=== PATIENT | female | born 1955 | race Caucasian/White ===

== ENCOUNTER 2018-02-17 15:56 | Emergency (ER) | payer MEDICARE, SELFPAY ==
[2018-02-17 16:07] VITALS: BP 168/104; PULSE 84; RESP 16; TEMP 36.6; O2SAT 96
--- NOTE | 2018-02-17 16:36 | ED.GENADUL ---
Disposition Clinical Impression: Pain in thumb joint with movement of left hand Disposition: HOME Condition: Stable Instructions: Arthralgia (ED) Additional Instructions: Feel free to return to the emergency department if you have any new or significant worsening of symptoms including multiple joint involvement, fever chills, redness or swelling to the joint. Otherwise rest the hand for the next 3-4 days and then resume activity as tolerated. Referrals: Ilda Mock [Primary Care Provider] - 2 weeks (If not improving over the next 2 weeks please follow-up with your primary care provider for reassessment) Medical Decision Making - Medical Decision Making Patient presenting to the emergency department with 3 days of thumb pain with no apparent injury or trauma. Finger is not red swollen, and there is no dysfunction to the joint. There is some tenderness with movement of the MCP joint but is otherwise unremarkable. With physical examination mostly unremarkable beyond pain to MCP joint I feel that this is more likely arthritis related but given sudden onset this not fully correlate with arthritis but there are no emergent findings of infection, systemic illness, or other joint involvement at this time I do not feel that labs or radiological imaging is warranted. Patient denies any repetitive motion or overuse so doubt tendinopathy. With no emergent findings patient was encouraged to use [id number] Tylenol or Motrin as needed for pain control to follow-up with primary care in 2 weeks for reassessment. After discussion of diagnosis and plan of care with patient patient agreed and stated no further needs, questions, or concerns at this time. History of Present Illness - General Chief complaint: Orthopedic Stated complaint: UNKNOWN Time Seen by Provider: 02/17/18 16:19 Source: patient, RN notes reviewed Mode of arrival: ambulatory Limitations: no limitations - History of Present Illness Initial comments: Patient reports 3 days ago she having left thumb pain. She denies any injury or trauma, repetitive use, motion, other joint involvement, fever chills. She does state history of gout but this is not red hot or swollen denies any streaking redness up the arm. Patient states that she has not attempted to use any [id number] pain medication. Onset/Timin -: days(s) Location: left, upper extremity Severity scale (1-10): 4 Quality: aching Consistency: constant Improves with: none Worsens with: movement Associated Symptoms: denies other symptoms Treatments Prior to Arrival: none - Related Data Allopurinol 300 mg PO DAILY #90 tab 02/06/14 Docusate Sodium [Colace] 100 mg PO BID PRN PRN cap 07/13/17 Lisinopril [Prinivil] 10 mg PO DAILY #30 tab 07/13/17 Naproxen [Naprosyn] 500 mg PO BID #28 tab 07/13/17 Erythromycin Ophth Oint [Ilotycin Ophth Oint] 3.5 gm OP TID 5 Days tube 11/30/17 Allergies Allergy/AdvReac Type Severity Reaction Status Date / Time quetiapine fumarate Allergy Intermediate Unverified 02/17/18 16:11 [From Seroquel] nabumetone [Nabumetone] Allergy Unknown SKIN RASH Unverified 02/17/18 16:11 celecoxib [From Celebrex] AdvReac Unknown PANIC Unverified 02/17/18 16:11 ATTACKS trazodone AdvReac Unknown PANIC Unverified 02/17/18 16:11 ATTACKS, RUBBERY LEGS, HALLUCINATIONS Review of Systems Constitutional: denies: chills, fever, malaise Respiratory: no symptoms reported Cardiovascular: denies: chest pain Musculoskeletal: as per HPI, arthralgia. denies: joint swelling Skin: denies: rash, change in color Neurological: denies: numbness, paresthesias Past Medical History - Past Medical History Medical history: arthritis, GERD, hypertension Gout, kidney stones Surgical history: cholecystectomy, hysterectomy - Social History Smoking status: never smoker Alcohol use: none Drug use: none Living Situation: lives with family General Exam - General Limitations: no limitations General appearance: alert, in no apparent distress - Respiratory Respiratory exam: Absent: respiratory distress - Cardiovascular Cardiovascular Exam: Present: regular rate, normal rhythm - Expanded Upper Extremity Exam Left Elbow exam: Present: normal inspection Forearm Wrist exam: Present: normal inspection Hand Wrist exam: Present: full ROM, tenderness (To palpation of MCP of thumb). Absent: swelling, deformity, crepidus, dislocation, erythema, nail avulsion, other (Negative Elodia's) Neuro motor exam: Present: wrist extension intact, thumb opposition intact, thumb IP flexion intact, thumb adduction intact, fingers 2-5 abduction intact Neurosensory exam: Present: 2-point discrimination, radial nerve intact, ulnar nerve intact, median nerve intact Vascular: Present: normal capillary refill, radial pulse (2+) - Neurological Exam Neurological exam: Present: alert, oriented X3. Absent: altered, CN II-XII intact - Skin Skin exam: Present: warm, dry, intact, normal color. Absent: erythema Course Vital Signs - 24 hr 02/17/ 16:07 Temperature 36.6 C Pulse 84 Respiratory 16 Rate Blood Pressure 168/104 Pulse Oximetry 96
[2018-02-17] MEDS: Acetaminophen 500 MG TAB 1000 MG PO (16:37)
== END 2018-02-17 16:43 | disposition home or self-care (01) ==
PROVIDERS: Emergency Provider Emergency Medicine; PCP Family Medicine
DX: M25.542 Pain in joints of left hand (principal); I10 Essential (primary) hypertension
CPT/HCPCS: 99282 ×2

== ENCOUNTER 2018-05-13 12:59 | Emergency (ER) | payer MEDICARE, SELFPAY ==
[2018-05-13 13:01] VITALS: BP 181/93; PULSE 92; RESP 18; TEMP 37.1; O2SAT 95
[2018-05-13] MEDS: Lisinopril 10 MG TAB PO (13:29)
[2018-05-13] MEDS: Ketorolac 30 MG/ML VIAL IM (13:29)
[2018-05-13 13:32] VITALS: RESP 14
[2018-05-13 13:59] VITALS: BP 155/92; PULSE 85; RESP 16; TEMP 37.4; O2SAT 97
--- NOTE | 2018-05-13 14:01 | NUR.NOTE ---
patient put on home day care provider's list for f/u secondary to patient bringing in outdated meds, told this nurse that she takes her meds when she remembers too and that she has an upcoming appt with her PCP.
--- NOTE | 2018-05-13 15:22 | ED.GENADUL_ITS ---
Discharge Plan Disposition Patient Disposition: HOME Condition: Good Discharge Details Chief Complaint: GenMedical Clinical Impression: Gout, Hypertension Primary Care Provider: Ilda Mock ED Provider: Troy Flores Home Meds and New Rx's Prescriptions: New allopurinol 300 mg tablet 300 mg PO DAILY Qty: 30 RF: 0 lisinopril 10 mg tablet 10 mg PO DAILY Qty: 30 RF: 0 Discharge Instructions Instructions: Low Purine Diet (ED), Gout (ED), Hypertension (ED) Additional Instructions: Please take your medication as directed. Please take Tylenol and Motrin as needed for pain for your gout. Please use your home crutches. Please avoid meats, caviar, or preserve meats if you notice any worsening of your symptoms, or any new symptoms such as vomiting, diarrhea, fever, chills, shortness of breath, chest pain, numbness, weakness, or fainting , please return immediately to the emergency department for reevaluation. Please follow up with your primary care provider as soon as possible for reassessment and reevaluation. As always, it was a pleasure participating in your medical care today. Referrals: Ilda Mock [Primary Care Provider] - Discharge Data Discharge Date/Time-TO BE ENTERED AT DEPARTURE: 05/13/18 13:55 Medical Decision Making This is a 62-year-old female with a past medical history of gout who presents for complaint of right foot pain with signs and symptoms consistent with gout. She has not been taking her allopurinol for quite some time, nor any of her other medications including her lisinopril for her hypertension medications. The pain started without trauma. She denies any fever or chills. Signs and symptoms on exam do appear consistent with gout, with no signs of infection or trauma. I feel her symptoms are secondary to medical noncompliance. The patient's blood pressure was initially elevated by EMS, but on reevaluation here notably went down. I do feel that she would benefit from restarting her home lisinopril as well as her allopurinol. We will give Toradol here for control of her gout, as well as recommendations for restarting her home meds. We will refill her home medication prescriptions here, and recommend Tylenol Motrin for home use. We did get the patient up and she was able to ambulate with mild pain. We did offer getting a cane/walker/crutches, however she has refused these, and states that she just wants a wheelchair to her car, so that she can get in and then will use her home crutches and cane she already has. She does not want to spend any additional money. Patient will be discharged home with close follow-up. We discussed the importance of close follow-up as well as red flags which to return the patient understands. I have extensively reviewed the treatment plan and discharge instructions with the patient. I have addressed all patient concerns at this time. The patient was made aware of what symptoms to monitor for that would warrant a return to the emergency department. Discussed the plan with the patient, they demonstrate verbal understanding and agreement with our assessment and plan at this time. HPI General Date/Time Provider Initiated Documentation: 05/13/18 13:07 . HPI Narrative: This is a 62-year-old female with a past medical history of gout, hypertension, chronic medical noncompliance who presents today for evaluation of right foot pain. The patient states that she has not been taking any of her medications for quite some time, she presents for evaluation of right foot pain that started without any inciting event. She states that this morning she woke up and had mild pain on the dorsum of her right foot. She states that it feels like her previous episodes of gout. She does admit to eating tuna fish recently, which she does not normally eat on a regular basis. She denies any trauma, or systemic symptoms of fever, chills, or other pain in her leg or ankle. She did contact EMS because of the pain with walking, and did not want to walk to her car at that time. On EMS arrival they did notice that she did have an elevated blood pressure in the high 100s systolic. Patient has no complaints of chest pain shortness of breath vision changes numbness tingling or weakness. Patient denies any other complaints at this time. She denies any recent surgeries, IV or illicit drug use, pertinent family history. Related Data Home Medications Medication Instructions Recorded Confirmed allopurinol 300 mg PO DAILY #30 tab 05/13/18 lisinopril 10 mg PO DAILY #30 tab 05/13/18 Previous Rx's Medication Instructions Recorded allopurinol 300 mg PO DAILY #30 tab 05/13/18 lisinopril 10 mg PO DAILY #30 tab 05/13/18 Allergies Allergy/AdvReac Type Severity Reaction Status Date / Time quetiapine fumarate Allergy Intermediate Unverified 05/13/18 13:01 [From Seroquel] nabumetone [Nabumetone] Allergy Unknown SKIN RASH Unverified 05/13/18 13:01 celecoxib [From Celebrex] AdvReac Unknown PANIC Unverified 05/13/18 13:01 ATTACKS trazodone AdvReac Unknown PANIC Unverified 05/13/18 13:01 ATTACKS, RUBBERY LEGS, HALLUCINATIONS General Stated Complaint: GenMedical LOBITO: 4 Review of Systems Review of Systems All systems reviewed & are unremarkable except as noted in HPI and below PFSH Medical History Essential hypertension Gout Morbid obesity Social History Smoking/Tobacco Use Status: Never Surgical History Cholecystectomy (10/22/13) Colonoscopy - MAC (02/28/14) Left extracorporeal shockwave lithotripsy for left renal calculus, 11/15/12 cystourethroscopy (01/24/13) Exam Narrative Exam Narrative: 1.Const: Well-nourished, Well-developed, appearing stated age. Morbidly obese, unkempt 2.Eyes: PERRL, no conjunctival injection, and symmetrical lids. 3.ENT: Atraumatic external nose and ears. Moist MM. Neck: Symmetric, trachea midline, No thyromegaly. 4.CVS: +S1/S2, No murmurs or gallops. Peripheral pulses 2+ and equal in all extremities. Brisk capillary refill in all extremities. 5.RESP: Unlabored respiratory effort. Clear to auscultation bilaterally. No wheezes rales or rhonchi 6.GI: Soft, Nontender/Nondistended, No hepatosplenomegaly. No guarding or rebound. 7.MSK: Normocephalic/Atraumatic, Extremities w/o deformity. No cyanosis or clubbing, Normal movement of all extremities. Patient demonstrates minimal swelling over the dorsum of her foot, no evidence of erythema, no warmth. Mild tenderness on palpation of this area. No crepitus, no signs of deformity, or infection. No other abnormalities or signs of tenderness. 8.Skin: Warm, Dry. No rashes or lesions. 9.Neuro: central scheduler II-XII grossly intact. Sensation grossly intact, no focal neurologic deficits. 10.Psych: (AAO) x3. Appropriate mood and affect Course Vital Signs Temperature 37.1 C 05/13/18 13:01 Pulse 92 H 05/13/18 13:01 Respiratory Rate 18 05/13/18 13:01 Blood Pressure 181/93 H 05/13/18 13:01 Pulse Oximetry 95 05/13/18 13:01 Temperature 37.1 C 05/13/18 13:01 Temperature Source Temporal Artery Scan 05/13/18 13:01 Pulse 92 H 05/13/18 13:01 Respiratory Rate 14 05/13/18 13:32 Respiratory Effort Non-Labored 05/13/18 13:32 Respiratory Depth Normal 05/13/18 13:32 Respiratory Pattern Normal 05/13/18 13:32 Blood Pressure 181/93 H 05/13/18 13:01 Blood Pressure Position Sitting 05/13/18 13:01 Pulse Oximetry 95 05/13/18 13:01 Oxygen Delivery Method Room Air 05/13/18 13:01 Oxygen Flow Rate 0 05/13/18 13:01 Pain Level 10 05/13/18 13:29
== END 2018-05-13 13:55 | disposition home or self-care (01) ==
PROVIDERS: Emergency Provider Student in an Organized Health Care Education/Training Program; PCP Family Medicine
DX: M10.071 Idiopathic gout, right ankle and foot (principal); I10 Essential (primary) hypertension
CPT/HCPCS: 96372; 99284; J1885

== ENCOUNTER 2018-05-28 10:42 | Outpatient (REF) | payer MEDICARE, SELFPAY ==
--- NOTE | 2018-05-28 10:00 | PAPFT_PTH ---
PATIENT: Luba Cotton LOC: [facility] U#:[id number] AGE/SX: 62/F ROOM: RE05/28/[address]: Ilda Mock : 1955 BED: DIS: 05/28/2018 SPEC #: [id number] RECD: 05/28/18 12:44 STATUS: SUDARSHAN REQ #: [id number] EVY: 05/28/18 10:[address]: Ilda Mock DEPT: [facility] Cytology RECD BY: Mariana Giraldo Tissues: 1 - CX/ENDOCX FOR PAP SMEARS Procedures: PAP THIN PREP/UVM Screening Comments: [id number]
== END 2018-05-28 11:02 ==
LOC: NCHCN 10:42
PROVIDERS: PCP Family Medicine; Visit Provider Family Medicine
DX: Z12.4 Encounter for screening for malignant neoplasm of cervix (principal)
CPT/HCPCS: 88142

== ENCOUNTER 2018-06-02 08:32 | Emergency (ER) | payer MEDICARE, MEDICAID, SELFPAY ==
[2018-06-02 08:37] VITALS: BP 149/89; PULSE 100; RESP 16; TEMP 36.5; O2SAT 95
[2018-06-02] MEDS: Acetaminophen 500 MG TAB 1000 MG PO (08:45)
[2018-06-02] MEDS: Ketorolac 30 MG/ML VIAL IM (08:45)
--- NOTE | 2018-06-02 08:53 | ED.GENADUL_ITS ---
Discharge Plan Disposition Patient Disposition: HOME Condition: Good Discharge Details Chief Complaint: Orthopedic Clinical Impression: Gout Reason For Visit: KERI Primary Care Provider: Ilda Mock ED Provider: Troy Flores Home Meds and New Rx's Prescriptions: New acetaminophen [Mapap Extra Strength] 500 MG tablet 1,000 mg PO Q6H 5 Days Qty: 60 RF: 0 ibuprofen [Motrin IB] 200 MG tablet 600 mg PO Q6H 5 Days Qty: 60 RF: 0 No Action allopurinol 300 mg tablet 300 mg PO DAILY Qty: 30 RF: 0 lisinopril 10 mg tablet 10 mg PO DAILY Qty: 30 RF: 0 Discharge Instructions Instructions: Gout (ED) Additional Instructions: Please take your medication as directed. Please take Tylenol and Motrin as needed for pain for your gout. Please use your home crutches. Please avoid meats, caviar, or preserve meats if you notice any worsening of your symptoms, or any new symptoms such as vomiting, diarrhea, fever, chills, shortness of breath, chest pain, numbness, weakness, or fainting , please return immediately to the emergency department for reevaluation. Please follow up with your primary care provider as soon as possible for reassessment and reevaluation. As always, it was a pleasure participating in your medical care today. Referrals: Ilda Mock [Primary Care Provider] - Medical Decision Making This is a 62-year-old female with a past medical history of gout who presents for complaint of left foot pain with signs and symptoms consistent with gout. She has not been taking her allopurinol as dirtected, nor any of her other medications . The pain started without trauma. She denies any fever or chills. Signs and symptoms on exam do appear consistent with gout, with no signs of infection or trauma. I feel her symptoms are secondary to medical noncompliance. I did see, assess and treat the patient less than a month ago for similar complaint however on the right foot. At that time we started her on NSAIDs, and restarted her allopurinol. She did very well at that time and had complete resolution of her symptoms. I feel that her current clinical scenario mirrors this previous instance very well. We will recommend resuming her allopurinol, we will give her Toradol and Tylenol here, and recommend continued NSAID use at home for symptom resolution. We recommend avoidance of preserved meats, and other etiologies that can worsen gout. Patient does have crutches at home, and is not requesting any at this time. We discussed red flags which to return the patient understands. I have extensively reviewed the treatment plan and discharge instructions with the patient. I have addressed all patient concerns at this time. The patient was made aware of what symptoms to monitor for that would warrant a return to the emergency department. Discussed the plan with the patient, they demonstrate verbal understanding and agreement with our assessment and plan at this time. HPI General Date/Time Provider Initiated Documentation: 06/02/18 08:39 . HPI Narrative: This is a 62-year-old female with a past medical history of gout, hypertension, chronic medical noncompliance who presents today for evaluation of Left foot pain. The patient states that she has not been taking any of her medications for gout as directed. She has been missing multiple doses of her allopurinol, and she has not been taking any NSAIDs. The pain started 3 days ago without inciting event. It is located mainly at the MTP joint on the left foot of the great toe. There is no other significant radiation of the pain it is mainly located in that single location. It is worse with movement and palpation. She has no associated fevers, chills, calf pain, chest pain, shortness of breath, numbness tingling or weakness. She has been eating meats with the . She denies any other aggravating or relieving symptoms. Patient denies any other associated complaints at this time. Patient denies any recent surgeries. She denies any IV or illicit drug use or pertinent family history. Related Data Home Medications Medication Instructions Recorded Confirmed allopurinol 300 mg PO DAILY #30 tab 05/13/18 06/02/18 lisinopril 10 mg PO DAILY #30 tab 05/13/18 06/02/18 acetaminophen [Mapap Extra 1,000 mg PO Q6H 5 Days #60 tab 06/02/18 Strength] ibuprofen [Motrin Ib] 600 mg PO Q6H 5 Days #60 tab 06/02/18 Previous Rx's Medication Instructions Recorded allopurinol 300 mg PO DAILY #30 tab 05/13/18 lisinopril 10 mg PO DAILY #30 tab 05/13/18 acetaminophen [Mapap Extra 1,000 mg PO Q6H 5 Days #60 tab 06/02/18 Strength] ibuprofen [Motrin Ib] 600 mg PO Q6H 5 Days #60 tab 06/02/18 Allergies Allergy/AdvReac Type Severity Reaction Status Date / Time quetiapine fumarate Allergy Intermediate Unverified 06/02/18 08:40 [From Seroquel] nabumetone [Nabumetone] Allergy Unknown SKIN RASH Unverified 06/02/18 08:40 celecoxib [From Celebrex] AdvReac Unknown PANIC Unverified 06/02/18 08:40 ATTACKS trazodone AdvReac Unknown PANIC Unverified 06/02/18 08:40 ATTACKS, RUBBERY LEGS, HALLUCINATIONS General Stated Complaint: Orthopedic LOBITO: 4 Review of Systems Review of Systems All systems reviewed & are unremarkable except as noted in HPI and below PFSH Essential hypertension Gout Morbid obesity Cholecystectomy (10/22/13) Colonoscopy - MAC (02/28/14) Left extracorporeal shockwave lithotripsy for left renal calculus, 11/15/12 cystourethroscopy (01/24/13) Medical History Essential hypertension Gout Morbid obesity Social History Smoking/Tobacco Use Status: Never Surgical History Cholecystectomy (10/22/13) Colonoscopy - MAC (02/28/14) Left extracorporeal shockwave lithotripsy for left renal calculus, 11/15/12 cystourethroscopy (01/24/13) Social History Smoking/Tobacco Use Status: Never Exam Narrative Exam Narrative: 1.Const: Well-nourished, Well-developed, appearing stated age 2.Eyes: PERRL, no conjunctival injection, and symmetrical lids. 3.ENT: Atraumatic external nose and ears. Moist MM. Neck: Symmetric, trachea midline, No thyromegaly. 4.CVS: +S1/S2, No murmurs or gallops. Peripheral pulses 2+ and equal in all extremities. Brisk capillary refill in all extremities. 5.RESP: Unlabored respiratory effort. Clear to auscultation bilaterally. No wheezes rales or rhonchi 6.GI: Soft, Nontender/Nondistended, No hepatosplenomegaly. No guarding or rebound. 7.MSK: Normocephalic, Extremities w/o deformity, No cyanosis or clubbing, Normal movement of all extremities. Patient does demonstrate mild subjective tenderness at the MTP joint on the great toe on the left foot. Minimal warmth, no evidence of fluctuance. No evidence of significant radiation. No crepitus. No evidence of tophaceous gout. Capillary refill is brisk, dorsalis pedis and posterior tibial pulses +2 bilaterally. Sensation is intact. Signs and symptoms consistent with clinical gout. 8.Skin: Warm, Dry. No rashes or lesions. Please see musculoskeletal. 9.Neuro: patient transition specialist II-XII grossly intact. Sensation grossly intact, no focal neurologic deficits. 10.Psych: (AAO) x3. Appropriate mood and affect Course Vital Signs Temperature 36.5 C 06/02/18 08:37 Pulse 100 H 06/02/18 08:37 Respiratory Rate 16 06/02/18 08:37 Blood Pressure 149/89 H 06/02/18 08:37 Pulse Oximetry 95 06/02/18 08:37 Temperature 36.5 C 06/02/18 08:37 Temperature Source Tympanic 06/02/18 08:37 Pulse 100 H 06/02/18 08:37 Respiratory Rate 16 06/02/18 08:37 Respiratory Effort Non-Labored 06/02/18 08:37 Blood Pressure 149/89 H 06/02/18 08:37 Pulse Oximetry 95 06/02/18 08:37 Oxygen Delivery Method Room Air 06/02/18 08:37 Oxygen Flow Rate 0 06/02/18 08:37 Pain Level 10 06/02/18 08:37
== END 2018-06-02 09:05 | disposition home or self-care (01) ==
LOC: ER 09:29
PROVIDERS: Emergency Provider Student in an Organized Health Care Education/Training Program; PCP Family Medicine
DX: M10.9 Gout, unspecified (principal); T50.4X6A Underdosing of drugs affecting uric acid metabolism, initial encounter; Z91.14 Patient's other noncompliance with medication regimen; I10 Essential (primary) hypertension
CPT/HCPCS: 96372; 99284; J1885

== ENCOUNTER 2018-07-13 11:00 | Outpatient (CLI) | payer MEDICARE, SELFPAY ==
--- NOTE | 2018-07-13 09:43 | DI.RAD_ITS ---
SYMPTOMS/DIAGNOSIS: SKIN MASS OF RT HAND, R22.31 RIGHT HAND: No lytic or blastic bony lesions or bony deformities are seen. No soft tissue calcifications are identified. No masses are visible. IMPRESSION: Negative right hand.
== END 2018-07-13 11:20 ==
PROVIDERS: PCP Family Medicine; Visit Provider Family Medicine
DX: R22.31 Localized swelling, mass and lump, right upper limb (principal)
CPT/HCPCS: 73130

== ENCOUNTER 2018-08-07 00:26 | Outpatient (CLI) | payer MEDICARE, SELFPAY ==
--- NOTE | 2018-08-07 14:00 | DI.DEXA_ITS ---
SYMPTOMS/DIAGNOSIS: OSTEOPOROSIS, M81.0 DEXA SCAN WITH HAL: The HAL image shows no evidence of compression fractures. The bone mineral density measurements of the lumbar spine correspond to a total T score of -3.2, consistent with osteoporosis. This is a decrease of 6.1% when compared with 2016. The bone mineral density measurements of the left hip correspond to a total T score of -2.8 and a femoral neck T score of -3.7. This is not significantly changed from the previous exam. The bone mineral density measurements of the left forearm correspond to a T score of the distal third of -3.6. This is not significantly changed. IMPRESSION: Osteoporosis of the lumbar spine, left hip and left forearm.
--- NOTE | 2018-08-07 15:10 | DI.MAMMO_ITS ---
SYMPTOMS/DIAGNOSIS: DIAGNOSTIC, F/U ABNORMAL MAMMO DIAGNOSTIC BILATERAL MAMMOGRAM: Mammograms were interpreted according to the usual protocol including computer analysis with CAD system, tomosynthesis and C view imaging. Comparison is made with exams from 2009 through 2018. The 2018 exam showed a 6 x 8 cm area of nodularity in the central right breast. The patient did not return for follow-up imaging. The breasts are composed of scattered fibroglandular densities, breast density category B. The previously questioned area of nodularity in the right breast has significantly increased in size, now measuring 16 mm in diameter. The borders are lobulated as well as show spiculation. There are a few associated calcifications, which were not seen previously. No additional masses are identified. Surgical clips are noted in the inferomedial right breast. The left breast shows no evidence of mass or suspicious calcifications. IMPRESSION: Left breast category 1, negative. Right breast category 5; the findings are highly suspicious for malignancy. The findings were called to nurse Yany at [facility]. The patient has an appointment scheduled at 11:20 a.m. tomorrow to discuss the findings. MQSA ASSESSMENT OF FINDINGS: Highly suspicious of malignancy. Biopsy should be obtained. Category 5. Patient will receive a letter notifying them of these results. MQSA ASSESSMENT OF FINDINGS: Negative. Category 1. Patient will receive a letter notifying them of these results. BI-RADS category B. There are scattered areas of fibroglandular density.
== END 2018-08-07 00:46 ==
PROVIDERS: PCP Family Medicine; Visit Provider Family Medicine
DX: Z12.31 Encounter for screening mammogram for malignant neoplasm of breast (principal); R92.8 Other abnormal and inconclusive findings on diagnostic imaging of breast; N63.10 Unspecified lump in the right breast, unspecified quadrant; M81.0 Age-related osteoporosis without current pathological fracture
CPT/HCPCS: 77062; 77066; 77080; G0279

== ENCOUNTER 2019-02-21 11:35 | Outpatient (REF) | payer MEDICARE, MEDICAID, SELFPAY ==
[2019-02-21 11:52] LABS: Absolute Basophil Count 0.02 k/cumm (0.0-0.2); Absolute Eosinophil Count 0.13 k/cumm (0.0-0.7); Absolute Lymphocyte Count 1.28 k/cumm (1.2-3.4); Absolute Monocyte Count 0.34 k/cumm (0.11-0.7); Absolute Neutrophil Count 4.07 k/cumm (1.2-6.7); Basophils % 0.3; Eosinophils % 2.2; HCT 49.4 % (36.0-46.0); HGB 15.6 g/dL (12.0-15.5); Lymphocytes % 21.9; Mean Corp. HGB Concentration 31.6 g/dL (32.0-36.0); Mean Corpuscular Hemoglobin 29.7 pg (27.0-33.0); Mean Corpuscular Volume 94.1 fL (80-95); Mean Platelet Volume 10.4 fL (8.0-11.0); Monocytes % 5.8; Neutrophils % 69.8; Platelet Count 218 x1000/uL (130-400); RBC 5.25 m/cumm (4.00-5.20); RBC Distribution Width 13.8 % (11.7-14.6); White Blood Cell Count 5.84 k/cumm (4.4-10.8)
[2019-02-21 12:08] LABS: ALT 15 U/L (12-78); AST 10 U/L (15-37); Albumin 3.5 g/dL (3.4-5.0); Alkaline Phosphatase 112 U/L (46-116); Anion Gap 5.7 mmol/L (3-11); BUN 22 mg/dL (7-18); Bilirubin, Total 0.5 mg/dL (0.2-1.0); CO2 31.3 mmol/L (21.0-32.0); Chloride 105 mmol/L (98-107); Estimated GFR 56.18 (mL/min/1.73m2); Glucose 84 mg/dL (70-100); Potassium 3.4 mmol/L (3.5-5.1); Sodium 142 mmol/L (136-145); Total Protein 7.8 g/dL (6.4-8.2)
== END 2019-02-21 11:55 ==
LOC: LBN 11:35
PROVIDERS: PCP Family Medicine; Visit Provider Radiology Radiation Oncology
DX: R19.7 Diarrhea, unspecified (principal)
CPT/HCPCS: 80053; 85025

== ENCOUNTER 2019-03-05 14:06 | Outpatient (REF) | payer MEDICARE, MEDICAID, SELFPAY | END 2019-03-05 14:26 | LOC: LBN 14:06 | PROVIDERS: PCP Family Medicine; Visit Provider Radiology Radiation Oncology | DX: R19.7 Diarrhea, unspecified (principal) | CPT/HCPCS: 87329; 87324 ==

== ENCOUNTER 2019-06-08 13:13 | Emergency (ER) | payer MEDICARE, SELFPAY ==
--- NOTE | 2019-06-08 13:20 | ED.GENADUL_ITS ---
Discharge Plan Disposition Patient Disposition: HOME Condition: Stable Discharge Details Chief Complaint: Orthopedic Clinical Impression: Fracture of proximal humerus Primary Care Provider: Ilda Mock ED Provider: Luly Parisi Home Meds and New Rx's Prescriptions: New oxycodone 5 mg tablet 5 mg PO Q6H PRN (Reason: pain) Qty: 10 RF: 0 Continued allopurinol 300 mg tablet 300 mg PO DAILY Qty: 30 RF: 0 lisinopril 10 mg tablet 10 mg PO DAILY Qty: 30 RF: 0 Discharge Instructions Instructions: Proximal Humerus Fracture (ED) Additional Instructions: Alternate Tylenol and Motrin as needed and directed for pain. Take the oxycodone for pain not relieved with Tylenol or Motrin. Rest ice and elevate your right arm as much as possible. Keep the sling in place until directed otherwise by orthopedics. Call orthopedics on Monday morning to schedule a follow-up appointment for reevaluation. Return to the emergency department if you develop any worsening or new concerning symptoms. Referrals: Lan Mena MD [ [facility] ST[facility]FF PHYSICIAN] - Discharge Data Discharge Date/Time-TO BE ENTERED AT DEPARTURE: 06/08/19 14:50 Discharge Physician: Luly Parisi Medical Decision Making 1335 -- 63-year-old female with a history of bipolar disorder, gout, hypertension, obesity presents with right arm pain after slip on ice and fall while getting into a truck. She states she fell directly on her right arm. Now complaining of pain in the right shoulder right clavicle and right upper arm. Denies head injury, neck pain, chest pain, abdominal pain, back pain or other extremity pain or injury. She has pain with range of motion and palpation to right distal clavicle, right shoulder and right upper arm. No obvious deformities noted. Neurovascularly intact. We will give a dose of ibuprofen which patient states she does tolerate and sent for right shoulder, humerus x-rays. 1430 -- Xrays note R proximal humerus fracture. Sling placed. Patient placed on orthopedic follow-up list. She is advised to rest ice and elevate. Dose of oxycodone given as well as prescription for home. Prior to discharge, stated that he wanted patient to be admitted for her fracture because she would be having difficulty getting into his truck. Patient states she has no difficulty getting out of the truck. Advised that we can provide assistance with her getting into the truck. Just then, stated if she falls, I will izzy you . I then questioned him why and he stated because you are stupid and retarded . When I stated to patient's that the standard of care for proximal humerus fractures is sling and f/u with orthopedics outpatient, he stated yeah right, I know more than you . Patient was cooperative during this. Patient was able to easily get into the truck with little assistance provided by staff. Imaging Data Radiologic Study: Radiologist's impression: XR Right Shoulder Exam date and time: 06/08/2019 2:01 PM Age: 63 years old Clinical history: Pain; Upper arm; Right TECHNIQUE: Imaging protocol: XR Right shoulder. Views: 2 or more views. COMPARISON: No relevant prior studies available. FINDINGS: Bones/joints: Impacted and angulated right proximal humeral metadiaphysis fracture. Osteopenia. There is widening of the coracoclavicular interval. The acromioclavicular interval is maintained. Lungs: The visualized right chest demonstrates mild peripheral patchy opacification. Interstitial prominence and likely some vascular engorgement. Soft tissues: Unremarkable. IMPRESSION: 1. Impacted and angulated right proximal humeral metadiaphysis fracture. 2. Widening of the coracoclavicular interval; however, the acromioclavicular interval is maintained. 3. Mild patchy opacification, increased interstitial prominence and mild vascular engorgement of the visualized lung. XR Right Humerus Exam date and time: 06/08/2019 2:01 PM Age: 63 years old Clinical history: Pain; Shoulder; Right TECHNIQUE: Imaging protocol: XR Right humerus Views: 2 or more views. COMPARISON: No relevant prior studies available. FINDINGS: Bones/joints: Impacted and angulated right proximal humeral metadiaphysis fracture. The visualized elbow appears unremarkable. Soft tissues: Normal. IMPRESSION: Impacted and angulated right proximal humeral metadiaphysis fracture. HPI General Mode of arrival: EMS . Date/Time Provider Initiated Documentation: 06/08/19 13:28 . Limitations to Documentation: no limitations . Information obtained by: patient . History of Present Illness 63 year old F presents to the emergency department with the chief complaint of R arm pain , described as moderate, Quality is described as aching, and is localized to the upper extremity (extending from R shoulder down to elbow). Patient started experiencing this hour(s) (1) and it has been constant. Rest improves symptom(s), Movement worsens symptoms . Patient notes no other symptoms.. Patient did receive the following treatments prior to arrival, none Related Data Home Medications Medication Instructions Recorded Confirmed allopurinol 300 mg PO DAILY #30 tab 05/13/18 06/08/19 lisinopril 10 mg PO DAILY #30 tab 05/13/18 06/08/19 oxycodone 5 mg PO Q6H PRN #10 tab 06/08/19 Previous Rx's Medication Instructions Recorded allopurinol 300 mg PO DAILY #30 tab 05/13/18 lisinopril 10 mg PO DAILY #30 tab 05/13/18 oxycodone 5 mg PO Q6H PRN #10 tab 06/08/19 Allergies Allergy/AdvReac Type Severity Reaction Status Date / Time quetiapine fumarate Allergy Intermediate Unverified 06/08/19 13:23 [From Seroquel] nabumetone [Nabumetone] Allergy Unknown SKIN RASH Unverified 06/08/19 13:23 celecoxib [From Celebrex] AdvReac Unknown PANIC Unverified 06/08/19 13:23 ATTACKS trazodone AdvReac Unknown PANIC Unverified 06/08/19 13:23 ATTACKS, RUBBERY LEGS, HALLUCINATIONS General Stated Complaint: Orthopedic LOBITO: 4 Review of Systems All systems reviewed & are unremarkable except as noted in HPI and below Constitutional Constitutional: Reports as per HPI, Denies chills and Denies fever(s) Eyes Eyes: Denies blurry vision ENT Ears, Nose, Mouth, and Throat: Denies dizziness, Denies sore throat and Denies throat swelling Cardiovascular Cardiovascular: Denies chest pain and Denies dyspnea Respiratory Respiratory: Denies cough and Denies dyspnea Gastrointestinal Gastrointestinal: Denies abdominal pain, Denies diarrhea and Denies vomiting Genitourinary Genitourinary: Denies hematuria and Denies dysuria Musculoskeletal Musculoskeletal: Denies back pain, Denies numbness and Reports other (R arm pain ) Integumentary/Breasts Skin/Breast: Denies lesions and Denies rash Neurologic Neurologic: Denies dizziness, Denies focal weakness and Denies numbness Allergic/Immunologic Allergic/Immunologic: Denies throat swelling [facility] Medical History Essential hypertension Gout Morbid obesity Surgical History Cholecystectomy (10/22/13) Gallstone pancreatitis Colonoscopy - MAC (02/28/14) cystourethroscopy (01/24/13) Dr Carranza-for R ureteral calculus R ureteral stent placed Left extracorporeal shockwave lithotripsy for left renal calculus, 11/15/12 Social History Smoking/Tobacco Use Status: Never Alcohol Intake: never Drug use: Never Substance use type: does not use Do you feel safe at home: Yes Do you feel safe in your relationship?: Yes Exam Const General: cooperative, healthy appearing and no acute distress HENMT Head: normal to inspection Face and sinus: normal facial exam Eyes General: appearance normal, both eyes and all related structures EOM: EOM intact bilaterally Neck Neck: normal visual inspection and No submandibular swelling Lymphatic: no lymphadenopathy noted Chest Chest: normal inspection of the chest and no tenderness Resp Effort & Inspection: normal respiratory effort and able to speak in complete sentences Auscultation: clear to auscultation bilaterally Cardio Rate: regular rate Rhythm: regular rhythm GI Inspection: normal to inspection Palpation: soft, not firm, not rigid and nontender Auscultation: normal bowel sounds Back/Spine/Pelvis Cervical Spine: No cervical spinal tenderness Thoracic/Lumbar Spine: thoracic and lumbar spine normal to inspection, No thoracic spinal tenderness and No lumbar spinal tenderness Pelvis: no pain with anterior-posterior compression Skin General skin exam: no rashes or lesions noted Neuro General: alert, awake and oriented x3 Cognition: normal cognition Speech: speech normal Motor: muscle tone normal throughout Sensory Exam: no sensory deficits noted Extrem Other: Pain in right distal clavicle, anterior shoulder and R upper arm with range of motion and palpation. No obvious deformities, erythema, ecchymosis, edema. Right radial and ulnar pulses intact. Cap refill less than 2 seconds. Psych Appearance: grossly normal Mental Status: mental status grossly normal Speech and Movement: speech and movement normal Affect: normal affect Course Vital Signs Vital signs: Pain Level 9 06/08/19 13:15
[2019-06-08 13:32] VITALS: BP 159/91; PULSE 94; RESP 21; TEMP 36.8; O2SAT 96
--- NOTE | 2019-06-08 13:56 | DI.RAD_ITS ---
EXAM: XR SHOULDER RT COMPLETE 2+V INDICATION: fall onto R shoulder, r/o acute fracture, PAIN COMPARISON: No exams were available for comparison TECHNIQUE: 2D digital imaging was performed. FINDINGS: There is a fracture seen extending mainly transversely through the surgical neck of the humerus. The re is moderate impaction. No dislocation is seen at the glenohumeral joint. AC joint is not widened. The visualized portions of the right ribs appear intact. IMPRESSION: Impacted fracture at the surgical neck of the humerus.
--- NOTE | 2019-06-08 13:59 | DI.RAD_ITS ---
EXAM: XR HUMERUS RT INDICATION: fall onto R shoulder/upper arm, r/o fracture,pain COMPARISON: No exams were available for comparison TECHNIQUE: 2D digital imaging was performed. FINDINGS: There is a fracture seen extending transversely through the surgical neck of the humerus. There is m ild impaction. No additional fractures are seen more distally. The elbow is grossly intact. IMPRESSION: Impacted fracture of the proximal humerus.
[2019-06-08] MEDS: Ibuprofen 600 MG TAB PO (14:05)
--- NOTE | 2019-06-08 14:19 | DI.VRAD_ITS ---
PROCEDURE INFORMATION: Exam: XR Right Shoulder Exam date and time: 06/08/2019 2:01 PM Age: 63 years old Clinical history: Pain; Upper arm; Right TECHNIQUE: Imaging protocol: XR Right shoulder. Views: 2 or more views. COMPARISON: No relevant prior studies available. FINDINGS: Bones/joints: Impacted and angulated right proximal humeral metadiaphysis fracture. Osteopenia. There is widening of the coracoclavicular interval. The acromioclavicular interval is maintained. Lungs: The visualized right chest demonstrates mild peripheral patchy opacification. Interstitial prominence and likely some vascular engorgement. Soft tissues: Unremarkable. IMPRESSION: 1. Impacted and angulated right proximal humeral metadiaphysis fracture. 2. Widening of the coracoclavicular interval; however, the acromioclavicular interval is maintained. 3. Mild patchy opacification, increased interstitial prominence and mild vascular engorgement of the visualized lung. Dictated and Authenticated by: Leonardo Grayson MD. Ordering:RADHA Mauricio MD
--- NOTE | 2019-06-08 14:20 | DI.VRAD_ITS ---
PROCEDURE INFORMATION: Exam: XR Right Humerus Exam date and time: 06/08/2019 2:01 PM Age: 63 years old Clinical history: Pain; Shoulder; Right TECHNIQUE: Imaging protocol: XR Right humerus Views: 2 or more views. COMPARISON: No relevant prior studies available. FINDINGS: Bones/joints: Impacted and angulated right proximal humeral metadiaphysis fracture. The visualized elbow appears unremarkable. Soft tissues: Normal. IMPRESSION: Impacted and angulated right proximal humeral metadiaphysis fracture. Dictated and Authenticated by: Leonardo Grayson MD. Ordering:RADHA Mauricio MD
[2019-06-08] MEDS: oxyCODONE 5 MG TAB PO (14:42)
[2019-06-08 14:46] VITALS: BP 124/78; PULSE 87; RESP 18; TEMP 36.8; O2SAT 98
== END 2019-06-08 14:50 | disposition home or self-care (01) ==
PROVIDERS: Emergency Provider Physician Assistant; PCP Family Medicine
DX: S42.201A Unspecified fracture of upper end of right humerus, initial encounter for closed fracture (principal); V58.6XXA Passenger in pick-up truck or van injured in noncollision transport accident in traffic accident, initial encounter; I10 Essential (primary) hypertension; E66.01 Morbid (severe) obesity due to excess calories; Z68.42 Body mass index [BMI] 45.0-49.9, adult
CPT/HCPCS: 23600; 99284; 73030; 73060; 99281; L3650

== ENCOUNTER 2019-06-21 15:30 | Emergency (ER) | payer MEDICARE, SELFPAY ==
--- NOTE | 2019-06-21 15:19 | ED.GENADUL_ITS ---
Discharge Plan Disposition Patient Disposition: HOME Condition: Good Discharge Details Chief Complaint: Orthopedic Clinical Impression: Gout, Acute pain of right foot Primary Care Provider: Ilda Mock ED Provider: Troy Flores Home Meds and New Rx's Prescriptions: New allopurinol 300 mg tablet 300 mg PO DAILY Qty: 60 RF: 3 acetaminophen [Mapap Extra Strength] 500 MG tablet 1,000 mg PO Q6H 5 Days Qty: 60 RF: 0 ibuprofen [Motrin IB] 200 MG tablet 600 mg PO Q6H 5 Days Qty: 60 RF: 0 Continued lisinopril 10 mg tablet 10 mg PO DAILY Qty: 30 RF: 0 oxycodone 5 mg tablet 5 mg PO Q6H PRN (Reason: pain) Qty: 10 RF: 0 Discontinued allopurinol 300 mg tablet 300 mg PO DAILY Qty: 30 RF: 0 Discharge Instructions Instructions: Gout (ED) Additional Instructions: Please take your allopurinol, Tylenol and Motrin as directed and as needed. Please avoid any preserved meats, cheeses, or other foods that can worsen gout. If you notice any worsening of your symptoms, or any new symptoms such as spreading of the redness, increased pain, vomiting, diarrhea, fever, chills, shortness of breath, chest pain, numbness, weakness, or fainting , please return immediately to the emergency department for reevaluation. Please follow up with your primary care provider as soon as possible for reassessment and reevaluation. As always, it was a pleasure participating in your medical care today. Referrals: Ilda Mock [Primary Care Provider] - Medical Decision Making This is a pleasant 63-year-old female with a past medical history of hypertension, chronic gout, and notable history of medical noncompliance. She presents today for evaluation of right foot pain. Patient states that over the last 2 to 3 weeks she has stopped taking her allopurinol and NSAIDs for her right foot pain. She states that this is because she ran out of the prescription. She states that over the last 2 to 3 days she has noticed mild redness and pain over the right ankle and foot which she states is identical to her gout. She denies any concerning red flags of fever or chills. Physical exam demonstrates mild swelling, mild redness mild warmth consistent with gout, no induration, abscess, or evidence of significant cellulitis or infection. She denies fever or chills. Exam appears clinically consistent with gout at this time. Will give Toradol, her dose of allopurinol, and Tylenol. 5:29 PM The patient is feeling much better, screening CBC demonstrates no white count or left shift. Signs and symptoms and consistent with infection. They are clinically consistent with a gout attack. Of note the patient states that she has been eating a significant amount of preserved meats and cheeses, and I do feel this is most likely a contributing factor. We have elicited the help of case management as well, to help get more resources at home. Case management has had a significant conversation with them to help facilitate this. Patient will be discharged home, and family is in notable agreement with this plan. We will get fire to help with a lift assist. I have extensively reviewed the treatment plan and discharge instructions with the patient and their family. I have addressed all patient concerns at this time. The patient and family was made aware of what symptoms to monitor for that would warrant a return to the emergency department. Discussed the plan with the patient and family, they demonstrate verbal understanding and agreement with our assessment and plan at this time. HPI General Date/Time Provider Initiated Documentation: 06/21/19 15:31 . HPI Narrative: This is a 62-year-old female with a past medical history of gout, hypertension, chronic medical noncompliance who presents today for evaluation of right foot pain. Patient presents via EMS. Patient states that over the last few days she is noticed some mild redness and swelling and pain in her right foot. She states that it seems identical to her previous episodes of gout in the past. She states that she is recently stopped taking her allopurinol and NSAIDs 2 to 3 weeks ago secondary to running out of prescription. She denies any fever or chills. She states that the symptoms feel identical to her previous episodes of gout when she has presented to the ER in the past. She denies any pain in the calf, knee, chest pain, shortness of breath, numbness tingling or weakness. She denies any other modifying factors. No other complaints at this time. Related Data Home Medications Medication Instructions Recorded Confirmed lisinopril 10 mg PO DAILY #30 tab 05/13/18 06/08/19 oxycodone 5 mg PO Q6H PRN #10 tab 06/08/19 acetaminophen [Mapap Extra 1,000 mg PO Q6H 5 Days #60 tab 06/21/19 Strength] allopurinol 300 mg PO DAILY #60 tab 06/21/19 ibuprofen [Motrin Ib] 600 mg PO Q6H 5 Days #60 tab 06/21/19 Previous Rx's Medication Instructions Recorded lisinopril 10 mg PO DAILY #30 tab 05/13/18 oxycodone 5 mg PO Q6H PRN #10 tab 06/08/19 acetaminophen [Mapap Extra 1,000 mg PO Q6H 5 Days #60 tab 06/21/19 Strength] allopurinol 300 mg PO DAILY #60 tab 06/21/19 ibuprofen [Motrin Ib] 600 mg PO Q6H 5 Days #60 tab 06/21/19 Allergies Allergy/AdvReac Type Severity Reaction Status Date / Time quetiapine fumarate Allergy Intermediate Unverified 06/08/19 13:23 [From Seroquel] nabumetone [Nabumetone] Allergy Unknown SKIN RASH Unverified 06/08/19 13:23 celecoxib [From Celebrex] AdvReac Unknown PANIC Unverified 06/08/19 13:23 ATTACKS trazodone AdvReac Unknown PANIC Unverified 06/08/19 13:23 ATTACKS, RUBBERY LEGS, HALLUCINATIONS General LOBITO: 4 Review of Systems All systems reviewed & are unremarkable except as noted in HPI and below PFSH Social History Smoking/Tobacco Use Status: Never Alcohol Intake: never Drug use: Never Substance use type: does not use Do you feel safe at home: Yes Do you feel safe in your relationship?: Yes Exam Narrative Exam Narrative: 1.Const: Well-nourished, Well-developed, appearing stated age 2.Eyes: PERRL, no conjunctival injection, and symmetrical lids. 3.ENT: Atraumatic external nose and ears. Moist MM. Neck: Symmetric, trachea midline, No thyromegaly. 4.CVS: +S1/S2, No murmurs or gallops. Peripheral pulses 2+ and equal in all extremities. Brisk capillary refill in all extremities. 5.RESP: Unlabored respiratory effort. Clear to auscultation bilaterally. No wheezes rales or rhonchi 6.GI: Soft, Nontender/Nondistended, No hepatosplenomegaly. No guarding or rebound. 7.MSK: Normocephalic/Atraumatic, right arm sling is in place from previous upper extremity injury. Extremities w/o significant deformity. No cyanosis or clubbing, mild tenderness in conjunction with mild swelling and mild redness on the lateral aspect of her right ankle, and over the top of the foot. No calf tenderness in the right or the left. No pitting edema. No fluctuance to suggest an abscess. 8.Skin: Warm, Dry. Please see musculoskeletal. No clinical evidence of abscess. No firm induration suggestive of cellulitis. No evidence of significant cellulitis. 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 Sensation grossly intact, no focal neurologic deficits. 10.Psych: (AAO) x3. Appropriate mood and affect
[2019-06-21 15:29] VITALS: BP 167/101; PULSE 106; RESP 18; TEMP 36.9; O2SAT 98
[2019-06-21 15:53] LABS: Abs Immature Grans 0.01 k/cumm (0.0-0.09); Absolute Basophil Count 0.01 k/cumm (0.0-0.2); Absolute Eosinophil Count 0.03 k/cumm (0.0-0.7); Absolute Lymphocyte Count 0.75 k/cumm (1.2-3.4); Absolute Monocyte Count 0.66 k/cumm (0.11-0.7); Absolute Neutrophil Count 7.45 k/cumm (1.2-6.7); Basophils % 0.1; Eosinophils % 0.3; HCT 47.4 % (36.0-46.0); HGB 15.6 g/dL (12.0-15.5); Immature Grans % 0.1; Lymphocytes % 8.4; Mean Corp. HGB Concentration 32.9 g/dL (32.0-36.0); Mean Corpuscular Hemoglobin 30.7 pg (27.0-33.0); Mean Corpuscular Volume 93.3 fL (80-95); Mean Platelet Volume 9.1 fL (8.0-11.0); Monocytes % 7.4; Neutrophils % 83.7; Platelet Count 235 x1000/uL (130-400); RBC 5.08 m/cumm (4.00-5.20); RBC Distribution Width 13.5 % (11.7-14.6); White Blood Cell Count 8.91 k/cumm (4.4-10.8)
[2019-06-21] MEDS: Acetaminophen 500 MG TAB 1000 MG PO (15:55)
[2019-06-21] MEDS: Ketorolac 30 MG/ML VIAL IM (15:56)
[2019-06-21] MEDS: Allopurinol 300 MG TAB PO (16:01)
[2019-06-21 17:35] VITALS: BP 132/68; PULSE 78; RESP 18; TEMP 36.7; O2SAT 98
--- NOTE | 2019-06-21 18:47 | PDOC.ERCMPRO ---
- If Service Date Differs Date of service: 06/21/19 Time of Service: 18:47 Care Management Progress Note CM asked to see patient due to request for services. Luba's stated that he was unable to care for her. After discussion, it was learned that Luba's inability to ambulate is secondary to a gout flareup that resulted when she stopped taking her medication, and is temporary. Luba and her were provided with information re: [facility], [facility] and private care agencies should they need help in the future. They will have a lift assist when they return home to help Luba get into the house where she has a walker and will follow up with refilling her medications.
== END 2019-06-21 17:38 | disposition home or self-care (01) ==
LOC: ER 16:15
PROVIDERS: Emergency Provider Student in an Organized Health Care Education/Training Program; PCP Family Medicine
DX: M10.9 Gout, unspecified (principal); M79.671 Pain in right foot; T50.4X6A Underdosing of drugs affecting uric acid metabolism, initial encounter; I10 Essential (primary) hypertension; Z91.14 Patient's other noncompliance with medication regimen
CPT/HCPCS: 36415; 96372; 99284; 85025; J1885

== ENCOUNTER 2019-07-23 14:16 | Outpatient (CLI) | payer MEDICARE, SELFPAY ==
--- NOTE | 2019-07-23 12:17 | DI.RAD_ITS ---
EXAM: XR SHOULDER RT COMPLETE 2+V CLINICAL HISTORY: f/u TECHNIQUE: COMPARISON: XR SHOULDER RT COMPLETE 2+V from 06/08/2019 FINDINGS: Two views were obtained. Previously described fracture the proximal humerus noted gross interval britt nge in alignment of the fracture fragments in comparison examination of June 08. IMPRESSION:
== END 2019-07-23 14:36 ==
PROVIDERS: PCP Family Medicine; Referring Provider Family Medicine; Visit Provider Orthopaedic Surgery
DX: S42.201D Unspecified fracture of upper end of right humerus, subsequent encounter for fracture with routine healing (principal); W00.0XXD Fall on same level due to ice and snow, subsequent encounter
CPT/HCPCS: 99214; 73030

== ENCOUNTER 2019-07-26 15:58 | Emergency (ER) | payer MEDICARE, SELFPAY ==
[2019-07-26 16:02] VITALS: BP 148/90; PULSE 110; RESP 20; TEMP 36.7; O2SAT 97
--- NOTE | 2019-07-26 16:48 | ED.GENADUL_ITS ---
Discharge Plan Disposition Patient Disposition: HOME Condition: Improving Discharge Details Chief Complaint: Orthopedic Clinical Impression: Paronychia Primary Care Provider: Ilda Mock ED Provider: Jitendra Leslie Home Meds and New Rx's Prescriptions: No Action lisinopril 10 mg tablet 10 mg PO DAILY Qty: 30 RF: 0 oxycodone 5 mg tablet 5 mg PO Q6H PRN (Reason: pain) Qty: 10 RF: 0 allopurinol 300 mg tablet 300 mg PO DAILY Qty: 60 RF: 3 Discharge Instructions Instructions: Paronychia (ED) Additional Instructions: 1. Drink plenty of fluids. 2. Continue all medications as prescribed. 3. Acetaminophen 1000mg every 4 hours (up to 5 time a day) and/or ibuprofen 600mg every 6 hours as needed for fever or pain. 4. Frequent warm water soaks starting tomorrow. May remove wick in 1 to 2 days. It is not a problem if it falls out earlier. Return to the Emergency Department (ED) if your condition worsens, does not improve as expected, or for ANY other concerns. Specifically, return if you have new or uncontrolled pain, worsening fever, difficulty breathing, vomiting, or are unable to drink fluids. Medical Decision Making 63-year-old woman who presents with progressive erythema purulence, and pain at the distal left radial thumb. Exam consistent with a paronychia. Excellent regional anesthesia achieved with a digital block performed by me. Paronychia incised and drained with a #11 scalpel blade with a significant bout of purulent material expressed. Wound packed with gauze and dressed with a tube dressing. Discussed low likelihood of need for oral antibiotics given drainage of her local abscess. Discharged with plan for OTC analgesia, frequent warm water soaks, and outpatient PCP follow-up. Given usual customary return instructions at time of discharge. Medical Records Medical records reviewed: Yes I reviewed the patient's medical records. HPI 63-year-old woman with a past medical history which includes essential hypertension, gout, and obesity. Presents with worsening swelling and redness of her left radial thumb at the nail. She denies any recent trauma. She has noticed a whitish collection immediately adjacent to the nail with no drainage. She denies any erythema proximally or any proximal symptoms. She has no history of previous paronychia. General Date/Time Provider Initiated Documentation: 07/26/19 16:40 . Related Data Home Medications Medication Instructions Recorded Confirmed lisinopril 10 mg PO DAILY #30 tab 05/13/18 07/26/19 oxycodone 5 mg PO Q6H PRN #10 tab 06/08/19 07/26/19 allopurinol 300 mg PO DAILY #60 tab 06/21/19 07/26/19 Previous Rx's Medication Instructions Recorded lisinopril 10 mg PO DAILY #30 tab 05/13/18 oxycodone 5 mg PO Q6H PRN #10 tab 06/08/19 allopurinol 300 mg PO DAILY #60 tab 06/21/19 Allergies Allergy/AdvReac Type Severity Reaction Status Date / Time quetiapine fumarate Allergy Intermediate Unverified 07/26/19 16:19 [From Seroquel] nabumetone [Nabumetone] Allergy Unknown SKIN RASH Unverified 07/26/19 16:19 celecoxib [From Celebrex] AdvReac Unknown PANIC Unverified 07/26/19 16:19 ATTACKS trazodone AdvReac Unknown PANIC Unverified 07/26/19 16:19 ATTACKS, RUBBERY LEGS, HALLUCINATIONS General Stated Complaint: Orthopedic LOBITO: 4 Review of Systems All systems reviewed & are unremarkable except as noted in HPI and below PFSH Medical History Essential hypertension Gout Morbid obesity Surgical History Cholecystectomy (10/22/13) Gallstone pancreatitis Colonoscopy - MAC (02/28/14) cystourethroscopy (01/24/13) Dr Carranza-for R ureteral calculus R ureteral stent placed Left extracorporeal shockwave lithotripsy for left renal calculus, 11/15/12 Social History Smoking/Tobacco Use Status: Never Alcohol Intake: never Drug use: Never Substance use type: does not use Do you feel safe at home: Yes Do you feel safe in your relationship?: Yes Exam Narrative Exam Narrative: Nursing note and vital signs have been reviewed and noted. GENERAL: alert, active, no acute distress, well -hydrated, well-nourished HEENT: atraumatic/normocephalic, PERRLA, EOMI, conjunctiva clear, external ears/canals normal, nasal mucosa normal NECK: supple, full range of motion CARDIOVASCULAR: nl pulses, no edema PULMONARY: nl effort, no audible wheezing or stridor ABDOMEN: non-distended EXTREMITY: normal muscle tone, all joints with FROM, no deformity NUERO: normal mentation, moving all extremities, normal stance and gait, PSYCH: alert and oriented SKIN: Erythematous patch with a purulent collection at the distal right radial thumb consistent with a paronychia. Erythema involves the distal thumb and nailbed. Otherwise normal neurovascular exam with no erythematous streaking proximally or evidence of flexor/extensor tendon inflammation. Course Vital Signs Vital signs: Vital Signs Temperature 98.1 F 07/26/19 16:02 Pulse 110 H 07/26/19 16:02 Respiratory Rate 20 07/26/19 16:02 Blood Pressure 148/90 H 07/26/19 16:02 Pulse Oximetry 97 07/26/19 16:02 Temperature 98.1 F 07/26/19 16:02 Temperature Source Temporal Artery Scan 07/26/19 16:02 Pulse 110 H 07/26/19 16:02 Respiratory Rate 20 07/26/19 16:02 Respiratory Effort Non-Labored 07/26/19 16:19 Blood Pressure 148/90 H 07/26/19 16:02 Pulse Oximetry 97 07/26/19 16:02 Oxygen Delivery Method Room Air 07/26/19 16:02 Oxygen Flow Rate 0 07/26/19 16:02 Pain Level 7 07/26/19 16:02 Procedures Abscess I/D Site: Upper Extremity (Left thumb paronychia) Side (if applicable): Left Sedation/analgesia: None Local Anesthetic: Lidocaine 1% Amount of anesthesia used (mL): 3 Technique: Incised with #11 Blade Amount of fluid expressed (mL): 2 Irrigation: No Packing used?: Plain Complications: Other (None) Nerve Block Nerve Block 1: Time out performed: Yes Local Anesthetic: Lidocaine 1% Amount of anesthesia used (mL): 3 Side: left Nerve Blocks: digital Procedure Successful: Yes Patient Tolerated Procedure: well Complications: none Additional Comments: Single injection at base of the proximal thumb phalanx from a volar approach.
== END 2019-07-26 17:00 | disposition home or self-care (01) ==
PROVIDERS: Emergency Provider Emergency Medicine; PCP Family Medicine
DX: L03.012 Cellulitis of left finger (principal); I10 Essential (primary) hypertension
CPT/HCPCS: 10060

== ENCOUNTER 2019-11-21 20:37 | Emergency (ER) | payer MEDICARE, SELFPAY ==
[2019-11-21] VITALS (8 sets, daily range): BP systolic 169–194; BP diastolic 93–116; PULSE 90–105; RESP 12–26; TEMP 36.8; O2SAT 94–95
[2019-11-21 20:51] LABS: Abs Immature Grans 0.01 k/cumm (0.0-0.09); Absolute Basophil Count 0.01 k/cumm (0.0-0.2); Absolute Eosinophil Count 0.12 k/cumm (0.0-0.7); Absolute Monocyte Count 0.49 k/cumm (0.11-0.7); Absolute Neutrophil Count 6.19 k/cumm (1.2-6.7); Basophils % 0.1; Eosinophils % 1.4; HCT 48.7 % (36.0-46.0); HGB 15.7 g/dL (12.0-15.5); Immature Grans % 0.1 %; Mean Corp. HGB Concentration 32.2 g/dL (32.0-36.0); Mean Corpuscular Volume 93.1 fL (80-95); Mean Platelet Volume 9.5 fL (8.0-11.0); Monocytes % 5.8; Neutrophils % 73.6; Platelet Count 238 x1000/uL (130-400); RBC 5.23 m/cumm (4.00-5.20); RBC Distribution Width 14.2 % (11.7-14.6); White Blood Cell Count 8.42 k/cumm (4.4-10.8)
[2019-11-21] MEDS: Lidocaine 5% Patch 1 PATCH TP (20:57)
[2019-11-21] MEDS: Acetaminophen 500 MG TAB 1000 MG PO (20:57)
--- NOTE | 2019-11-21 20:57 | ED.GENADUL_ITS ---
Discharge Plan Disposition Patient Disposition: HOME Condition: Good Discharge Details Chief Complaint: Chest Pain Clinical Impression: Acute chest wall pain, Dehydration Primary Care Provider: Ilda Mock ED Provider: Mariana Nicole Home Meds and New Rx's Prescriptions: Continued lisinopril 10 mg tablet 10 mg PO DAILY Qty: 30 RF: 0 oxycodone 5 mg tablet 5 mg PO Q6H PRN (Reason: pain) Qty: 10 RF: 0 allopurinol 300 mg tablet 300 mg PO DAILY Qty: 60 RF: 3 Discharge Instructions Instructions: Dehydration (ED), Chest Wall Pain (ED) Additional Instructions: At this time, discomfort seems to be stemming from the fall you had a few days ago. Your labs indicate dehydration. Encourage water intake. Tylenol and/or ibuprofen as needed for discomfort. You may also try topical options such as Lidoderm patches to help with discomfort. You will need to have your kidney function checked again by primary care. Please call to schedule follow-up appointment next week. Otherwise, your labs and imaging are reassuring. You do have a right adrenal nodule as discussed, please discuss this further with primary care. Please take your medications as previously prescribed. If you develop difficulty breathing, increased pain, rash, radiating pain or other new/worsening symptom please seek care urgently once again. Referrals: Ilda Mock [Primary Care Provider] - Medical Decision Making <LORNA Jensen - Last Filed: 11/21/19 22:48> Patient is a 64 year old female, brought in via EMS with c/c of left sided chest pain. She states that pain had onset of left sided pain 3 days ago, came on at time of rest. States that pain has been constant since that time, worse with movement and palpation of the chest wall. PMH significant for morbid obesity, GERD, panniculitis, HTN, gout. She is s/p cholecystectomy. Patient denies any radiation of pain. States she is been short of breath. Patient does have shortness of breath at baseline. Any fevers or chills. No pain rating into the back. No pain rating to the arms or neck. Denies any nausea or vomiting. No change in bowel or bladder habits. Denies any lower extremity edema. Denies any calf tenderness. Exam, patient appears chronically ill but without evidence of acute illness. Lungs are clear. Normal cardiac auscultation. She is exquisitely tender with gentle palpation of the left chest wall. This is made worse as well with range of motion of the left upper extremity. She has 2+ distal pulses. Abdomen is benign. No lower extremity edema, calves are soft and nontender bilaterally. Pain seems to be primarily emanating from the chest wall. Also on the differential is ACS, pulmonary embolism, infectious process. She is not having any evidence of infection. She denies any radiating pain suggestive of dissection. While pulmonary embolism is low on the differential, patient patient's age she is not able to be ruled out with PERC criteria. As the patient is endorsing shortness of breath with her chest discomfort, plan for BNP to evaluate for potential CHF. ECG was reviewed by Dr. Davies. Patient in a NSR with rate of 104. Patient has nonspecific T changes, this is unchanged from previous. CXR reviewed by radiologist: FINDINGS: Lungs: Unremarkable. No consolidation. Pleural space: Unremarkable. No pleural effusion. No pneumothorax. Heart/Mediastinum: Unremarkable. No cardiomegaly. Bones/joints: Degenerative thoracic spine. IMPRESSION: 1. No infiltrates, edema, or pleural effusions. 2. Degenerative thoracic spine disease Labs reviewed. No leukocytosis. Patient is anemic. Patient's d-dimer is elevated at 768. CMP is significant for BUN elevated at 35, creatinine elevated 1.36. Patient has elevated like this historically but most recently, last fall, is 1.0. BNP is normal. Troponin is less than 0.05. Alk phos is elevated 161, patient has been elevated historically. I discussed these findings with the patient. We discussed CT for PE protocol patient with patient's elevated d-dimer. She was understanding and would like to proceed. I did consider holding off based on the patient's creatinine but this patient did appear dehydrated, is currently receiving fluids feel moving forward with the procedure is appropriate. Patient will continue to receive her 1 L of fluids. FINDINGS: Pulmonary arteries: No evidence of pulmonary arterial embolism. Aorta: Unremarkable. No aortic aneurysm. No aortic dissection. Lungs: Minor right middle lobe lateral segment consolidation may represent and earlier minor infiltrate. Pleural space: No pleural effusion. No pneumothorax. Heart: Mild cardiomegaly. No pericardial effusion. Mediastinum: Small hiatal hernia. Lymph nodes: Unremarkable. No enlarged lymph nodes. Adrenals: Nonspecific right adrenal nodule measuring 3.2 x 3 . 6 cm. Average Hounsfield unit is in the negative range. 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 This could be further evaluated with in phase at of phase MRI if felt clinically warranted. Bones/joints: Unremarkable. No acute fracture. Soft tissues: Unremarkable. Previous cholecystectomy IMPRESSION: 1. No pulmonary arterial embolism. 2. Minimal lateral segment right middle lobe consolidation may represent atelectasis or early infiltrate. 3. Right adrenal nodule as detailed above. 4. Previous cholecystectomy. 5. Small hiatal hernia. 6. Mild cardiomegaly. Discussed the above incidental findings with the patient. They did question atelectasis versus early infiltrate in the right middle lobe but the patient's history and exam does not correlate with infectious process and I find this very unlikely. I did advise patient on her adrenal nodule and advised that she discuss this further with primary care physician. Patient is now reporting that she fell a few days ago and is questioning if this may be causing her left lower chest wall pain. The greatest relief came from the cool patch being placed on the patient's chest wall. Again, the patient pain was worse with palpation over the chest wall and with movement particularly of the left arm. Her exam and history does not correlate clinically with this. Patient is receiving IV hydration. She is hydrating at the bedside. She will follow-up with her primary care beginning next week for reevaluation and reassessment of her kidney function. We discussed home remedies and [id number] medications that may help with chest wall discomfort. She was given return precautions. All of her questions or concerns were addressed and she is in agreement this plan. <Jose Davies MD - Last Filed: 11/21/19 22:35> Patient seen and evaluated by me. Patient discussed and plan reviewed with LORNA Nicole. I reviewed laboratory studies, EKG, imaging studies. Agree with note and plan as detailed by LORNA Nicole. Lab Data Lab results reviewed: Yes I reviewed the patient's lab results. HPI <LORNA Jensen - Last Filed: 11/21/19 22:48> General Mode of arrival: EMS . Date/Time Provider Initiated Documentation: 11/21/19 20:56 . Limitations to Documentation: no limitations . Information obtained by: patient, EMS and RN notes reviewed . History of Present Illness 64 year old F presents to the emergency department with the chief complaint of chest pain, described as moderate, with intensity rated at 7. Quality is described as aching and constant, and is localized to the chest. Patient reports no radiation. Patient started experiencing this day(s) (3) and it has been constant. Immobilization improves symptom(s), Movement worsens symptoms . Patient notes chest pain and shortness of breath; denies cough, diaphoresis, fever/chills, headaches, loss of appetite, nausea/vomiting, rash and weakness. Patient did receive the following treatments prior to arrival, other (given nitro siblingual by EMS with no change in severity) Related Data Home Medications Medication Instructions Recorded Confirmed lisinopril 10 mg PO DAILY #30 tab 05/13/18 07/26/19 oxycodone 5 mg PO Q6H PRN #10 tab 06/08/19 07/26/19 allopurinol 300 mg PO DAILY #60 tab 06/21/19 07/26/19 Previous Rx's Medication Instructions Recorded lisinopril 10 mg PO DAILY #30 tab 05/13/18 oxycodone 5 mg PO Q6H PRN #10 tab 06/08/19 allopurinol 300 mg PO DAILY #60 tab 06/21/19 Allergies Allergy/AdvReac Type Severity Reaction Status Date / Time quetiapine fumarate Allergy Intermediate Unverified 11/21/19 20:47 [From Seroquel] nabumetone [Nabumetone] Allergy Unknown SKIN RASH Unverified 11/21/19 20:47 celecoxib [From Celebrex] AdvReac Unknown PANIC Unverified 11/21/19 20:47 ATTACKS trazodone AdvReac Unknown PANIC Unverified 11/21/19 21:37 ATTACKS, RUBBERY LEGS, HALLUCINATIONS General Stated Complaint: Chest Pain LOBITO: 2 Review of Systems <LORNA Jensen - Last Filed: 11/21/19 22:48> Constitutional Constitutional: Reports as per HPI, Denies chills, Denies fever(s), Denies headache(s), Denies lethargy and Denies poor appetite Eyes Eyes: Denies change in vision ENT Ears, Nose, Mouth, and Throat: Denies dizziness and Denies headache(s) Cardiovascular Cardiovascular: Reports as per HPI, Reports chest pain, Reports chest pain at rest (pain is constant), Reports chest pain with activity, Denies syncope, Denies edema, Denies irregular heart rhythm, Denies claudication, Denies leg edema, Denies lightheadedness, Denies radiating jaw, neck or arm pain, Denies palpitations, Reports dyspnea (baseline) and Denies dyspnea on exertion Respiratory Respiratory: Reports as per HPI, Denies chest congestion, Denies cough, Denies hemoptysis, Denies pain on inspiration, Denies pain with cough, Reports dyspnea (baseline), Denies dyspnea on exertion and Denies wheezing Gastrointestinal Gastrointestinal: Reports as per HPI, Denies abdominal pain, Denies diarrhea, Denies nausea and Denies vomiting Musculoskeletal Musculoskeletal: Reports as per HPI and Denies back pain Integumentary/Breasts Skin/Breast: Reports as per HPI and Denies rash Neurologic Neurologic: Reports as per HPI, Denies dizziness, Denies syncope and Denies headache(s) Endocrine Endocrine: Denies palpitations Allergic/Immunologic Allergic/Immunologic: Denies wheezing PFSH <LORNA Jensen - Last Filed: 11/21/19 22:48> Medical History Essential hypertension Gout Morbid obesity Social History Smoking/Tobacco Use Status: Never Alcohol Intake: never Drug use: Never Substance use type: does not use Do you feel safe at home: Yes Do you feel safe in your relationship?: Yes Exam <LORNA Jensen - Last Filed: 11/21/19 22:48> Const General: cooperative, healthy appearing, comfortable, no acute distress and well developed Nutritional Appearance: average body habitus and well nourished Orientation: alert, awake and oriented x3 HENMT Head: normal to inspection Ears: hearing grossly normal bilaterally Mouth: moist mucous membranes Chest Chest: normal inspection of the chest, normal palpation of entire chest wall and no crepitus Resp Effort & Inspection: normal respiratory effort, able to speak in complete sentences and no respiratory distress Auscultation: clear to auscultation bilaterally, no rales, no rhonchi and no wheezes Cardio Rate: regular rate Rhythm: regular rhythm Heart Sounds: S1 normal and S2 normal GI Inspection: normal to inspection, no edema and non-distended Palpation: soft, no hepatosplenomegaly, not firm, no guarding, not rigid and nontender Auscultation: normal bowel sounds Back/Spine/Pelvis Back: no CVA tenderness Thoracic/Lumbar Spine: thoracic and lumbar spine normal to inspection Skin General skin exam: no rashes or lesions noted Trauma: no lacerations or abrasions Neuro General: patient alert, patient awake and patient oriented x3 Cognition: normal cognition Speech: speech normal Gait: normal gait Extrem General: normal to inspection, capillary refill normal, no pedal edema, no calf tenderness and normal gait Psych Appearance: grossly normal and well kempt Mental Status: mental status grossly normal Speech and Movement: speech and movement normal Course <LORNA Jensen - Last Filed: 11/21/19 22:48> Vital Signs Vital signs: Vital Signs Temperature 36.8 C 11/21/19 20:41 Pulse 105 H 11/21/19 20:41 Respiratory Rate 15 11/21/19 20:41 Blood Pressure 169/103 H 11/21/19 20:41 Pulse Oximetry 94 L 11/21/19 20:41 Temperature 36.8 C 11/21/19 20:41 Pulse 105 H 11/21/19 20:41 Respiratory Rate 15 11/21/19 20:41 Respiratory Effort 11/21/19 20:45 Blood Pressure 169/103 H 11/21/19 20:41 Blood Pressure Position Sitting 11/21/19 20:41 Pulse Oximetry 94 L 11/21/19 20:41 Oxygen Delivery Method Room Air 11/21/19 20:41 Oxygen Flow Rate 0 11/21/19 20:41 Pain Level 7 11/21/19 20:41 Lab/Test Results Lab/Test Results: Laboratory Tests Range/Units 11/21/19 20:45 WBC (4.4-10.8) k/cumm 8.42 RBC (4.00-5.20) m/cumm 5.23 H Hgb (12.0-15.5) g/dL 15.7 H Hct (36.0-46.0) % 48.7 H MCV (80-95) fL 93.1 MCH (27.0-33.0) pg 30.0 MCHC (32.0-36.0) g/dL 32.2 RDW (11.7-14.6) % 14.2 Plt Count (130-400) x1000/uL 238 MPV (8.0-11.0) fL 9.5 Immature Gran % % 0.1 Neutrophils % 73.6 Lymphocytes % 19.0 Monocytes % 5.8 Eosinophils % 1.4 Basophils % 0.1 Absolute Neutrophils (1.2-6.7) k/cumm 6.19 Absolute Lymphocytes (1.2-3.4) k/cumm 1.60 Absolute Monocytes (0.11-0.7) k/cumm 0.49 Absolute Eosinophils (0.0-0.7) k/cumm 0.12 Absolute Basophils (0.0-0.2) k/cumm 0.01
[2019-11-21 21:04] LABS: INR 0.9 (0.9-1.1); Prothrombin Time 9.5 sec (9.3-11.0)
--- NOTE | 2019-11-21 21:04 | DI.RAD_ITS ---
EXAM: XR CHEST 2V PA LATERAL CLINICAL HISTORY: CP TECHNIQUE: 2D digital imaging was performed. COMPARISON: No exams were available for comparison FINDINGS: MEDIASTINUM: Normal. HEART: Normal. PULMONARY VASCULATURE: Normal. LUNGS: Clear. PLEURAL SPACE: No pleural effusion or pneumothorax. BONE:Degenerative changes in the spine. OTHER FINDINGS:Normal. IMPRESSION: No acute pulmonary findings. DATA REPOSITORY: RADIATION DOSE DELIVERED:
--- NOTE | 2019-11-21 21:08 | DI.VRAD_ITS ---
PROCEDURE INFORMATION: Exam: XR Chest, 2 Views Exam date and time: 11/21/2019 9:04 PM Age: 64 years old Clinical indication: Chest pain; Type not specified TECHNIQUE: Imaging protocol: XR of the chest Views: 2 views. COMPARISON: CR RIGHT RIBS TO INCLUDE CXR 05/15/2017 12:47 PM FINDINGS: Lungs: Unremarkable. No consolidation. Pleural space: Unremarkable. No pleural effusion. No pneumothorax. Heart/Mediastinum: Unremarkable. No cardiomegaly. Bones/joints: Degenerative thoracic spine. IMPRESSION: 1. No infiltrates, edema, or pleural effusions. 2. Degenerative thoracic spine disease Dictated and Authenticated by: Jose F Chandler MD. Ordering:ZORAN Peña MD
[2019-11-21 21:10] LABS: ALT 17 U/L (14-59); AST 14 U/L (15-37); Albumin 3.4 g/dL (3.4-5.0); Alkaline Phosphatase 161 U/L (46-116); BUN 35 mg/dL (7-18); Bilirubin, Total 0.3 mg/dL (0.2-1.0); CREATININE 1.36 mg/dL (0.55-1.02); Calcium 10.1 mg/dL (8.5-10.1); Chloride 106 mmol/L (98-107); Estimated GFR 39.27 (mL/min/1.73m2); Glucose 100 mg/dL (74-106); Magnesium 2.1 mg/dL (1.8-2.4); NT-proBNP 267 pg/mL (<300); Sodium 140 mmol/L (136-145); Total Protein 8.2 g/dL (6.4-8.2)
[2019-11-21 21:15] LABS: PTT Activated 24.1 sec (21.0-31.4); Troponin I < 0.05 ng/Ml (<0.06)
[2019-11-21] MEDS: Lactated Ringers 500 ML IV (21:23)
--- NOTE | 2019-11-21 21:30 | DI.CT_ITS ---
EXAM: CT CHEST PE CTA CLINICAL HISTORY: SOB, elevated d-dimer. TECHNIQUE: Imaging Protocol: Axial CT angiography was performed with multi-slice acquisition and mu lti-planar and/or 3D reconstructions. CONTRAST MATERIAL: Intravenous: Omnipaque 350 Contrast volume:100 mL COMPARISON: CT ABD PELVIS WO CONTRAST from 11/25/2016 FINDINGS: Pulmonary Arteries: No evidence of filling defect to suggest pulmonary emboli. Tracheobronchial tree: Patent where visualized. Mediastinum and Brittany: No dominant adenopathy or fluid collection. Pulmonary parenchyma: There is a small infiltrate in the right middle lobe which may represent atelec tasis or pneumonia. No architectural distortion. No pulmonary mass. Pleura: No effusion or pneumothorax. Heart: Mild dilatation. No coronary artery calcifications are seen. No pericardial effusion. Aorta: Thoracic aorta non-dilated. No evidence of dissection. Upper abdomen: Stable right adrenal nodule. Status post cholecystectomy. Small hiatal hernia. 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 IMPRESSION: 1. No evidence of pulmonary embolism, thoracic aortic dissection or aneurysm. 2. Small right middle lobe infiltrate which may represent atelectasis or pneumonia. RADIATION DOSE DELIVERED: 553.49mGy.cm Total DLP DATA REPOSITORY: All CT scans at this facility are submitted to the National Radiology Data Registry (NRDR) Dose Index Registry (DIR) with the [employer] ([employer]). RADIATION OPTIMIZATION: All CT scans at this facility use at least one of these dose optimization te chniques: automated exposure control; mA and/or kV adjustment per patient size (includes targeted exa ms where dose is matched to clinical indication); or iterative reconstruction.
[2019-11-21 21:39] LABS: D-Dimer 768 ng/mlFEU (<500)
[2019-11-21] MEDS: Normal Saline Flush 10 ML SYR IVP (21:58)
[2019-11-21] MEDS: Normal Saline - Diluent 50 ML VIAL IV (21:59)
[2019-11-21] MEDS: Omnipaque 350 MG/ML 100 ML BTL IJ (22:06)
--- NOTE | 2019-11-21 22:29 | DI.VRAD_ITS ---
PROCEDURE INFORMATION: Exam: CT Angiography Chest With Contrast Exam date and time: 11/21/2019 9:42 PM Age: 64 years old Clinical indication: Shortness of breath and other: Elevated d-dimer TECHNIQUE: Imaging protocol: Computed tomographic angiography of the chest with intravenous contrast. 3D rendering: MIP and/or 3D reconstructed images were created by the technologist. Radiation optimization: All CT scans at this facility use at least one of these dose optimization techniques: automated exposure control; mA and/or kV adjustment per patient size (includes targeted exams where dose is matched to clinical indication); or iterative reconstruction. Contrast material: [id number]; Contrast volume: 100 ml; Contrast route: IV LAC 18G; COMPARISON: CR XR CHEST 2V PA LATERAL 11/21/2019 8:59 PM FINDINGS: Pulmonary arteries: No evidence of pulmonary arterial embolism. Aorta: Unremarkable. No aortic aneurysm. No aortic dissection. Lungs: Minor right middle lobe lateral segment consolidation may represent and earlier minor infiltrate. Pleural space: No pleural effusion. No pneumothorax. Heart: Mild cardiomegaly. No pericardial effusion. Mediastinum: Small hiatal hernia. Lymph nodes: Unremarkable. No enlarged lymph nodes. Adrenals: Nonspecific right adrenal nodule measuring 3.2 x 3 . 6 cm. Average Hounsfield unit is in the negative range. 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 This could be further evaluated with in phase at of phase MRI if felt clinically warranted. Bones/joints: Unremarkable. No acute fracture. Soft tissues: Unremarkable. Previous cholecystectomy IMPRESSION: 1. No pulmonary arterial embolism. 2. Minimal lateral segment right middle lobe consolidation may represent atelectasis or early infiltrate. 3. Right adrenal nodule as detailed above. 4. Previous cholecystectomy. 5. Small hiatal hernia. 6. Mild cardiomegaly. Dictated and Authenticated by: Jose F Chandler MD. Ordering:ZORAN Peña MD
[2019-11-21] MEDS: Lisinopril 10 MG TAB (22:32)
== END 2019-11-21 23:15 | disposition home or self-care (01) ==
LOC: ER 22:46
PROVIDERS: Emergency Provider Physician Assistant; PCP Family Medicine
DX: R07.81 Pleurodynia (principal); E86.0 Dehydration; R93.421 Abnormal radiologic findings on diagnostic imaging of right kidney; R79.1 Abnormal coagulation profile; E66.01 Morbid (severe) obesity due to excess calories; Z68.42 Body mass index [BMI] 45.0-49.9, adult; I10 Essential (primary) hypertension
CPT/HCPCS: 36415; 71275; 80053; 93005; 96360; 99285; 71046; 83735; 83880; 84484; 85025; 85379; 85610; 85730; 93010; 99284; J3490

== ENCOUNTER 2020-03-27 14:06 | Emergency (ER) | payer MEDICARE, SELFPAY ==
[2020-03-27 14:10] VITALS: BP 183/98; PULSE 98; RESP 16; TEMP 36.7; O2SAT 95
--- NOTE | 2020-03-27 14:23 | ED.GENADUL_ITS ---
Discharge Plan Disposition Patient Disposition: HOME Condition: Stable Discharge Details Clinical Impression: Cellulitis of right index finger Primary Care Provider: Ilda Mock ED Provider: Osbaldo Cheema Home Meds and New Rx's Prescriptions: New cephalexin 500 mg capsule 500 mg PO QID Qty: 36 RF: 0 Continued lisinopril 10 mg tablet 10 mg PO DAILY Qty: 30 RF: 0 allopurinol 300 mg tablet 300 mg PO DAILY Qty: 60 RF: 3 Discharge Instructions Instructions: Cellulitis (ED) Additional Instructions: Please contact your primary care physician to arrange follow-up. Please take full course of antibiotic as prescribed. Return to the ER for any worsening or new concerning symptoms. Referrals: Ilda Mock [Primary Care Provider] - Discharge Data Discharge Date/Time-TO BE ENTERED AT DEPARTURE: 03/27/20 15:30 Medical Decision Making 2:29 -- 64-year-old female with history of gout here with cellulitis of her right second digit, I suspect seeded from biting her nails. No distinct paro nychia. Patient does have significant pain with attempted flexion of her digit and is swollen. Consider early flexor tenosynovitis. I called and spoke with Dr. Mena who will evaluate the patient. Will obtain x-ray of the finger. -- Patient evaluated by Dr. Mena who recommends treatment for cellulitis and oupatient followup. Usual and customary discharge instructions were reviewed wi th the patient. HPI General Mode of arrival: EMS . Date/Time Provider Initiated Documentation: 03/27/20 14:11 . Limitations to Documentation: no limitations . Information obtained by: patient and EMS . HPI Narrative: 64-year-old female presents with chief complaint of right second digit inflammation. Patient notes her fingers been inflamed for the past 3 days. Symptoms are worsening. No modifiers. She has redness, pain, swelling. Pain is localized to distal dorsal finger and entire palmar finger. Patient notes she has difficulty flexing her finger. No associated fever. Related Data Home Medications Medication Instructions Recorded Confirmed lisinopril 10 mg PO DAILY #30 tab 05/13/18 03/27/20 allopurinol 300 mg PO DAILY #60 tab 06/21/19 03/27/20 cephalexin 500 mg PO QID #36 cap 03/27/20 Previous Rx's Medication Instructions Recorded lisinopril 10 mg PO DAILY #30 tab 05/13/18 allopurinol 300 mg PO DAILY #60 tab 06/21/19 cephalexin 500 mg PO QID #36 cap 03/27/20 Allergies Allergy/AdvReac Type Severity Reaction Status Date / Time quetiapine fumarate Allergy Intermediate Unverified 03/27/20 14:13 [From Seroquel] nabumetone [Nabumetone] Allergy Unknown SKIN RASH Unverified 03/27/20 14:13 celecoxib [From Celebrex] AdvReac Unknown PANIC Unverified 03/27/20 14:13 ATTACKS trazodone AdvReac Unknown PANIC Unverified 03/27/20 14:13 ATTACKS, RUBBERY LEGS, HALLUCINATIONS General Stated Complaint: Cellulitis LOBITO: 4 Review of Systems Constitutional Constitutional: Denies fever(s) Musculoskeletal Musculoskeletal: Reports as per HPI and Reports limited range of motion Integumentary/Breasts Skin/Breast: Reports erythema (Finger) PFSH Medical History Essential hypertension Gout Morbid obesity Surgical History Cholecystectomy (10/22/13) Gallstone pancreatitis Colonoscopy - MAC (02/28/14) cystourethroscopy (01/24/13) Dr Carranza-for R ureteral calculus R ureteral stent placed Left extracorporeal shockwave lithotripsy for left renal calculus, 11/15/12 Social History Smoking/Tobacco Use Status: Never Alcohol Intake: never Drug use: Never Substance use type: does not use Do you feel safe at home: Yes Do you feel safe in your relationship?: Yes Exam Const General: cooperative and no acute distress HENMT Mouth: moist mucous membranes Eyes Conjunctivae: normal conjunctivae Sclera: normal sclerae Cardio Rate: regular rate and not tachycardic Rhythm: regular rhythm Skin General skin exam: no rashes or lesions noted Neuro General: patient alert, patient awake and tone normal Extrem Right upper extremity: hand Details: other (Swelling, tenderness, erythema right second digit palmar surface and distal dorsal, no fluctuance, pain with atte mpted flexion at PIP and DIP, distal sensation intact) Course Vital Signs Vital signs: Vital Signs Temperature 36.7 C 03/27/20 14:10 Pulse 98 H 03/27/20 14:10 Respiratory Rate 16 03/27/20 14:10 Blood Pressure 183/98 H 03/27/20 14:10 Pulse Oximetry 95 03/27/20 14:10 Temperature 36.7 C 03/27/20 14:10 Temperature Source Skin 03/27/20 14:10 Pulse 98 H 03/27/20 14:10 Respiratory Rate 16 03/27/20 14:10 Respiratory Effort Non-Labored 03/27/20 14:10 Blood Pressure 183/98 H 03/27/20 14:10 Blood Pressure Position Sitting 03/27/20 14:10 Pulse Oximetry 95 03/27/20 14:10 Oxygen Delivery Method Room Air 03/27/20 14:10 Oxygen Flow Rate 0 03/27/20 14:10 Pain Level 10 03/27/20 14:10
--- NOTE | 2020-03-27 15:05 | OCONE_ITS ---
Date of service: 03/27/20 Time of Service: 15:06 History of Present Illness History of Present Illness Chief Complaint: Right Index Finger Narrative: Jesi is a 64 year old with 3 days of right index finger pain and redness. She does report having bitten her nails, as she frequently does, but nothing more than usual. She denies fever or chills. She has had no open wounds or areas of drainage. She has had no insect or animal bite. She has had difficulty with moving the finger over the last day. Consults Consult date: 03/27/20 Requesting physician: Osbaldo Cheema Consult Reason Right Index Finger Cellulitis Assessment and Plan Assessment and plan (1) Cellulitis of right index finger: Status: Acute Assessment and plan: Jesi is a 64 year old female who has a circumfrentrial cellulitis of the right index finger. Since she doesn't have a fixed flexed positioning, has no pain over the tendon in the palm, and is able to move the finger (although it causes pain), I think this represents a developing cellulitis of the finger rather than a true suppurative flexor tenosynovitis. I recommend a shot of Ceftriaxone 2g here in the ED and then Ke flex to go. I am concerned about MRSA but feel Cephalexin would cover a more appropriate range of bacterium. I asked her to soak the finger and keep it clean, avoiding biting her nails. She should keep it elevated. I will contact her on Monday to make sure that things are improving. Review of Systems All systems reviewed & are unremarkable except as noted in HPI and below PFSH Medical History Essential hypertension Gout Morbid obesity Surgical History Cholecystectomy (10/22/13) Gallstone pancreatitis Colonoscopy - MAC (02/28/14) cystourethroscopy (01/24/13) Dr Carranza-for R ureteral calculus R ureteral stent placed Left extracorporeal shockwave lithotripsy for left renal calculus, 11/15/12 Social History Smoking/Tobacco Use Status: Never Alcohol Intake: never Drug use: Never Substance use type: does not use Do you feel safe at home: Yes Do you feel safe in your relationship?: Yes Exam Const General: cooperative, No well groomed, disheveled and other (dirty) Nutritional Appearance: obese morbidly obese Orientation: alert, awake and oriented x3 Extrem Right upper extremity: hand Details: abnormal ROM of finger Details: pain with active ROM Location: of the 2nd digit and pain with passive ROM Location: of the 2nd digit and swelling Location: of the 2nd digit Other: RIF is red and errythematous. There is swelling but not fusiform. The finger is relatively extended, not held in flexion. There is pain to palpation around the index finger, both dorsally and palmarly. There is pain along the flexor tendon sheath but not past the base of the index finger. No pain to palpation of the index finger flexor tendon in the palm. She is able to activley flex te finger but it does case pain. I am able to terminally extend the finger. Results Last Vital Signs Temp 36.7 C 03/27/20 14:10 Pulse 98 H 03/27/20 14:10 Resp 16 03/27/20 14:10 BP 183/98 H 03/27/20 14:10 Pulse Ox 95 03/27/20 14:10
[2020-03-27] MEDS: Ibuprofen 600 MG TAB PO (15:20)
[2020-03-27] MEDS: cefTRIAXone 2 GM VIAL IM ×2 (15:20→15:30)
[2020-03-27] MEDS: Acetaminophen 500 MG TAB 1000 MG PO (15:20)
[2020-03-27] MEDS: Lidocaine 1% Multi-Dose 50 ML VIAL (17:46)
== END 2020-03-27 15:30 | disposition home or self-care (01) ==
PROVIDERS: Emergency Provider Student in an Organized Health Care Education/Training Program; PCP Family Medicine
DX: L03.011 Cellulitis of right finger (principal)
CPT/HCPCS: 36416; 82962; 96372; 99253; 99283; 99284; J0696

== ENCOUNTER 2020-06-23 12:15 | Emergency (ER) | payer MEDICARE, SELFPAY ==
[2020-06-23 12:20] VITALS: BP 201/111; PULSE 113; RESP 16; TEMP 36.8; O2SAT 96
--- NOTE | 2020-06-23 12:21 | ED.GENADUL_ITS ---
Discharge Plan Disposition Patient Disposition: HOME Condition: Stable Discharge Details Clinical Impression: Foot pain, right, Ankle pain, right, History of gout, Noncompliance with medication regimen Primary Care Provider: Ilda Mock ED Provider: Luly Parisi Home Meds and New Rx's Prescriptions: New cephalexin [Keflex] 500 mg capsule 500 mg PO QID 7 Days Qty: 28 RF: 0 ibuprofen 600 mg tablet 600 mg PO Q6H PRN (Reason: pain) Qty: 20 RF: 0 Continued lisinopril 10 mg tablet 10 mg PO DAILY Qty: 30 RF: 0 allopurinol 300 mg tablet 300 mg PO DAILY Qty: 60 RF: 3 Discharge Instructions Instructions: Cellulitis (ED), Gout (ED) Additional Instructions: Your ankle and foot swelling, pain and redness may be due to gout or a possible early infection. It is recommended that you take ibuprofen 600 mg every 6 hours as needed for swelling and pain. Take the antibiotics that were finished. You can also take Tylenol as needed directed for pain. Rest and elevate the affected area as much as possible. Take your regular medications lisinopril for your blood pressure and your allopurinol for your gout as directed. Follow-up with your primary care doctor in 1 week. Return to the emergency department with any worsening or new concerning symptoms. Discharge Data Discharge Physician: Luly Parisi Medical Decision Making 64-year-old female with a history of hypertension, gout and morbid obesity presents for right foot and ankle pain for the past 3 days. She has not taken her lisinopril or allopurinol for the past month because I have been busy . She is disheveled and her feet are significantly soiled with dirt. She has mild to moderate tenderness to palpation over the right lateral malleolus and right lateral dorsal midfoot. She is neurovascularly intact. There is mild edema but no evidence of erythema, ecchymosis or crepitus. Appears consistent with likely gout versus strain or sprain, versus arthritis, etc. Will obtain a right foot and ankle x-ray. Will give a dose of Toradol IM, Tylenol p.o. and resume her allopurinol and lisinopril. Her blood pressure on arrival to 201/111. Right foot neck x-ray negative. On reassessment she now appears to have erythema and minimal edema to the right medial malleolus. Her pain still remains in the right lateral malleolus and midfoot. Differential diagnosis includes gout versus early cellulitis. Will treat with NSAIDs and antibiotics. She was given 1 dose of Keflex here as well as prescription for Keflex and ibuprofen. Blood pressure 157/85. Medical Records Medical records reviewed: Yes I reviewed the patient's medical records. Imaging Data Radiologic Study: Radiologist's impression: XR ANKLE RT COMPLETE and XR foot RT complete CLINICAL HISTORY: R lateral ankle pain, r/o acute fracture. TECHNIQUE: 2D digital imaging was performed. COMPARISON: CR XR FOOT RT COMPLETE from 06/23/2020 FINDINGS: BONES: No acute fracture is present. No bony destructive lesion is seen. Small calcaneal spur. Small enthesophyte at the Achilles insertion site. JOINTS: The ankle mortise is normally aligned. SOFT TISSUE: There is soft tissue swelling of the foot. Atherosclerosis. IMPRESSION: No acute fracture or dislocation of the right ankle or foot. Lab Data Lab results reviewed: Yes I reviewed the patient's lab results. HPI General Mode of arrival: ambulatory . Date/Time Provider Initiated Documentation: 06/23/20 12:22 . Limitations to Documentation: no limitations . Information obtained by: patient . HPI Narrative: Patient is a 63-year-old female who presents to the ED with complaint of right ankle and foot pain for the past 3 days. Patient denies any known injury. She states she has a history of gout and states this may feel similar to that but she does not remember what that feels like. She states she has not taken her allopurinol or lisinopril for the past month because I have been busy . Patient states she has pain with weightbearing. She denies any fever. She denies any hip or knee pain. Related Data Home Medications Medication Instructions Recorded Confirmed lisinopril 10 mg PO DAILY #30 tab 05/13/18 06/23/20 allopurinol 300 mg PO DAILY #60 tab 06/21/19 06/23/20 cephalexin [Keflex] 500 mg PO QID 7 Days #28 cap 06/23/20 ibuprofen 600 mg PO Q6H PRN #20 tab 06/23/20 Previous Rx's Medication Instructions Recorded lisinopril 10 mg PO DAILY #30 tab 05/13/18 allopurinol 300 mg PO DAILY #60 tab 06/21/19 cephalexin [Keflex] 500 mg PO QID 7 Days #28 cap 06/23/20 ibuprofen 600 mg PO Q6H PRN #20 tab 06/23/20 Allergies Allergy/AdvReac Type Severity Reaction Status Date / Time quetiapine fumarate Allergy Intermediate Unverified 03/27/20 14:13 [From Seroquel] nabumetone [Nabumetone] Allergy Unknown SKIN RASH Unverified 03/27/20 14:13 celecoxib [From Celebrex] AdvReac Unknown PANIC Unverified 03/27/20 14:13 ATTACKS trazodone AdvReac Unknown PANIC Unverified 03/27/20 14:13 ATTACKS, RUBBERY LEGS, HALLUCINATIONS General LOBITO: 4 Review of Systems All systems reviewed & are unremarkable except as noted in HPI and below Constitutional Constitutional: Reports as per HPI, Denies chills and Denies fever(s) Eyes Eyes: Denies blurry vision ENT Ears, Nose, Mouth, and Throat: Denies dizziness, Denies sore throat and Denies throat swelling Cardiovascular Cardiovascular: Denies chest pain and Denies dyspnea Respiratory Respiratory: Denies cough and Denies dyspnea Gastrointestinal Gastrointestinal: Denies abdominal pain, Denies diarrhea and Denies vomiting Genitourinary Genitourinary: Denies hematuria and Denies dysuria Musculoskeletal Musculoskeletal: Denies back pain and Denies numbness Comments: Right foot and ankle pain Integumentary/Breasts Skin/Breast: Denies lesions and Denies rash Neurologic Neurologic: Denies dizziness, Denies localized weakness and Denies numbness Allergic/Immunologic Allergic/Immunologic: Denies throat swelling [facility] Medical History (Updated 06/23/20 @ 13:36 by Luly Parisi DO) Essential hypertension Gout Morbid obesity Surgical History Cholecystectomy (10/22/13) Gallstone pancreatitis Colonoscopy - MAC (02/28/14) cystourethroscopy (01/24/13) Dr Carranza-for R ureteral calculus R ureteral stent placed Left extracorporeal shockwave lithotripsy for left renal calculus, 11/15/12 Social History Smoking/Tobacco Use Status: Never Smoking risk assessment performed?: Yes Alcohol Intake: never Drug use: Never Substance use type: does not use Do you feel safe at home: Yes Do you feel safe in your relationship?: Yes Exam Const General: cooperative, no acute distress and disheveled Nutritional Appearance: obese morbidly obese Orientation: alert, awake and oriented x3 HENMT Head: normal to inspection Mouth: oral mucosae normal Eyes General: appearance normal, both eyes and all related structures Neck Neck: normal visual inspection Resp Effort & Inspection: normal respiratory effort and able to speak in complete sentences Cardio Rate: regular rate Skin General skin exam: no rashes or lesions noted Neuro General: patient alert, patient awake and patient oriented x3 Motor: muscle tone normal throughout Extrem Ankle/foot/toe images: 1. Mild edema and tenderness to palpation of right lateral malleolus and right lateral dorsal foot. There is no erythema, crepitus, rash or ecchymosis. Other: Right DP/PT pulses intact. Psych Appearance: grossly normal Affect: normal affect
--- NOTE | 2020-06-23 12:30 | DI.RAD_ITS ---
EXAM: XR ANKLE RT COMPLETE and XR foot RT complete CLINICAL HISTORY: R lateral ankle pain, r/o acute fracture. TECHNIQUE: 2D digital imaging was performed. COMPARISON: CR XR FOOT RT COMPLETE from 06/23/2020 FINDINGS: BONES: No acute fracture is present. No bony destructive lesion is seen. Small calcaneal spur. Smal l enthesophyte at the Achilles insertion site. JOINTS: The ankle mortise is normally aligned. SOFT TISSUE: There is soft tissue swelling of the foot. Atherosclerosis. IMPRESSION: No acute fracture or dislocation of the right ankle or foot. DATA REPOSITORY: RADIATION DOSE DELIVERED:
[2020-06-23] MEDS: Lisinopril 10 MG TAB PO (13:05)
[2020-06-23] MEDS: Acetaminophen 325 MG TAB 650 MG PO (13:10)
[2020-06-23] MEDS: Ketorolac 60 MG/2 ML VIAL IM (13:11)
[2020-06-23] MEDS: Allopurinol 300 MG TAB PO (13:23)
[2020-06-23 14:25] VITALS: BP 159/91; PULSE 90; RESP 16; TEMP 36.8; O2SAT 96
[2020-06-23] MEDS: Cephalexin 500 MG CAP PO (14:59)
[2020-06-23] MEDS: Cephalexin 500 MG CAP, 4 CAPS/BTL PO (14:59)
[2020-06-23 15:40] VITALS: BP 113/65; PULSE 93; RESP 16; TEMP 36.8; O2SAT 98
== END 2020-06-23 15:42 | disposition home or self-care (01) ==
PROVIDERS: Emergency Provider Physician Assistant; PCP Family Medicine
DX: M25.571 Pain in right ankle and joints of right foot (principal); T46.4X6A Underdosing of angiotensin-converting-enzyme inhibitors, initial encounter; T50.4X6A Underdosing of drugs affecting uric acid metabolism, initial encounter; I10 Essential (primary) hypertension; Z91.128 Patient's intentional underdosing of medication regimen for other reason; M1A.9XX0 Chronic gout, unspecified, without tophus (tophi)
CPT/HCPCS: 96372; 99284; 73610; 73630; 99285; J1885

== ENCOUNTER 2020-09-13 09:18 | Emergency (ER) | payer MEDICARE, MEDICAID, SELFPAY ==
[2020-09-13 09:36] VITALS: BP 178/101; PULSE 100; RESP 20; TEMP 36.4; O2SAT 97
[2020-09-13] MEDS: Colchicine 0.6 MG TAB PO (09:58)
--- NOTE | 2020-09-13 10:00 | W.ED.GENAD ---
Discharge Plan Disposition Patient Disposition: HOME Condition: Stable Discharge Details Clinical Impression: Gout flare Primary Care Provider: Ilda Mock ED Provider: Osbaldo Cheema Home Meds and New Rx's Prescriptions: New colchicine 0.6 mg tablet 0.6 mg PO BID PRN (Reason: gout) Qty: 30 RF: 0 Continued lisinopril 10 mg tablet 10 mg PO DAILY Qty: 30 RF: 0 Discharge Instructions Instructions: Colchicine (By mouth), Gout (ED) Additional Instructions: You were given a dose of colchicine today in the emergency department and a dose to take at home should the pain persist this afternoon. Please take medication as prescribed. I have prescribed additional colchicine to take for gout flares in the future. Please follow-up with your doctor. Call first thing tomorrow. Your blood pressure was elevated today and you have to take her antihypertensives as prescribed. Return to the ER for any worsening or new concerning symptoms. Referrals: Ilda Mock [Primary Care Provider] - Discharge Data Discharge Date/Time-TO BE ENTERED AT DEPARTURE: 09/13/20 11:29 Medical Decision Making 55-year-old female with history of gout, morbid obesity, here with gout flare affecting her left second MCP. Patient treated with colchicine and provided colchicine redosing for home. Patient is hypertensive and notes that she has been noncompliant with her antihypertensives as well as her allopurinol. I have encouraged her to call her doctor first thing tomorrow morning to arrange timely follow-up. Patient will not be able to tolerate crutches given morbid obesity. I will provide walker so that the patient may ambulate until gout flare improved. Usual customary discharge instructions reviewed with patient. HPI General Mode of arrival: ambulatory. Date/Time Provider Initiated Documentation: 09/13/20 09:52. Limitations to Documentation: no limitations. Information obtained by: patient. HPI Narrative: 55-year-old female with history of gout, morbid obesity, here with gout flare affecting her left second MTP. Patient started last night and has persisted. Moderate intensity. Constant. Worse with ambulation. She notes that she does not take any gout medications as she ran out. Related Data Home Medications Medication Instructions Recorded Confirmed colchicine 0.6 mg PO BID PRN #30 tab 09/13/20 lisinopril 10 mg PO DAILY #30 tab 09/13/20 Previous Rx's Medication Instructions Recorded colchicine 0.6 mg PO BID PRN #30 tab 09/13/20 lisinopril 10 mg PO DAILY #30 tab 09/13/20 Allergies Allergy/AdvReac Type Severity Reaction Status Date / Time quetiapine fumarate Allergy Intermediate Unverified 09/13/20 09:39 [From Seroquel] nabumetone [Nabumetone] Allergy Unknown SKIN RASH Unverified 09/13/20 09:39 celecoxib [From Celebrex] AdvReac Unknown PANIC Unverified 09/13/20 09:39 ATTACKS trazodone AdvReac Unknown PANIC Unverified 09/13/20 09:39 ATTACKS, RUBBERY LEGS, HALLUCINATIONS General Stated Complaint: Orthopedic LOBITO: 4 Review of Systems Constitutional Constitutional: Denies fever(s) Musculoskeletal Musculoskeletal: Reports as per [facility] Medical History (Updated 09/13/20 @ 10:03 by Osbaldo Cheema MD) Essential hypertension Gout Morbid obesity Surgical History Cholecystectomy (10/22/13) Gallstone pancreatitis Colonoscopy - MAC (02/28/14) cystourethroscopy (01/24/13) Dr Carranza-for R ureteral calculus R ureteral stent placed Left extracorporeal shockwave lithotripsy for left renal calculus, 11/15/12 Social History Smoking/Tobacco Use Status: Never Smoking risk assessment performed?: Yes Alcohol Intake: never Drug use: Never Substance use type: does not use Do you feel safe at home: Yes Do you feel safe in your relationship?: Yes Exam Const General: cooperative and no acute distress HENMT Mouth: moist mucous membranes Cardio Rate: regular rate and not tachycardic Rhythm: regular rhythm Extrem Left lower extremity: foot Details: normal capillary refill and tenderness (Second MTP with erythema) Course Vital Signs Vital signs: Vital Signs Temperature 36.4 C L 09/13/20 09:36 Pulse 100 H 09/13/20 09:36 Respiratory Rate 20 09/13/20 09:36 Blood Pressure 178/101 H 09/13/20 09:36 Pulse Oximetry 97 09/13/20 09:36 Temperature 36.4 C L 09/13/20 09:36 Temperature Source Skin 09/13/20 09:36 Pulse 100 H 09/13/20 09:36 Respiratory Rate 20 09/13/20 09:36 Respiratory Effort 09/13/20 09:44 Blood Pressure 178/101 H 09/13/20 09:36 Blood Pressure Position Sitting 09/13/20 09:36 Pulse Oximetry 97 09/13/20 09:36 Oxygen Delivery Method Room Air 09/13/20 09:36 Oxygen Flow Rate 0 09/13/20 09:36 Pain Level 8 09/13/20 09:40
[2020-09-13] MEDS: Colchicine 0.6 MG TAB 1.2 MG PO (10:37)
[2020-09-13] MEDS: Lisinopril 10 MG TAB PO (11:04)
[2020-09-13 11:30] VITALS: BP 176/147; PULSE 99; RESP 20; TEMP 36.6; O2SAT 96
--- NOTE | 2020-09-13 19:15 | NUR.NOTE ---
Referral faxed to [facility] Dr Mock for f/u of hypertension, gout flair.Nursing Note:
== END 2020-09-13 11:29 | disposition home or self-care (01) ==
LOC: ER 11:07
PROVIDERS: Emergency Provider Student in an Organized Health Care Education/Training Program; PCP Family Medicine
DX: T46.5X6A Underdosing of other antihypertensive drugs, initial encounter (principal); T50.4X6A Underdosing of drugs affecting uric acid metabolism, initial encounter; Z91.128 Patient's intentional underdosing of medication regimen for other reason; M10.072 Idiopathic gout, left ankle and foot; I10 Essential (primary) hypertension
CPT/HCPCS: 99283

== ENCOUNTER 2020-11-09 16:29 | Emergency (ER) | payer MEDICARE, SELFPAY ==
--- NOTE | 2020-11-09 16:30 | DI.RAD_ITS ---
Exam(s) XR FOOT LT COMPLETE EXAM: XR FOOT LT COMPLETE CLINICAL HISTORY: pain and swelling TECHNIQUE: COMPARISON: CR XR FOOT RT COMPLETE from 06/23/2020 FINDINGS: Three views were obtained. Examination is of limited technical quality. There is demineralization o f the bones. There are fixation screws in the distal tibia. There are moderate to severe degenerati ve changes of the joints of the hindfoot and midfoot. No gross fracture or dislocation. IMPRESSION: RADIATION DOSE DELIVERED: Total DLP
[2020-11-09 16:33] VITALS: BP 185/97; PULSE 87; RESP 18; TEMP 36.6; O2SAT 97
--- NOTE | 2020-11-09 16:44 | ED.GENADUL_ITS ---
Discharge Plan Disposition Patient Disposition: HOME Condition: Stable Discharge Details Clinical Impression: Gout flare, Cellulitis Primary Care Provider: Ilda Mock ED Provider: Robi Sylvester Home Meds and New Rx's Prescriptions: New prednisone 20 mg tablet 60 mg PO DAILY 4 Days Qty: 12 RF: 0 amoxicillin-pot clavulanate [Augmentin] 875-125 mg tablet 1 tab PO BID Qty: 14 RF: 0 Continued lisinopril 10 mg tablet 10 mg PO DAILY RF: 0 Discharge Instructions Instructions: Cellulitis (ED), Gout (ED) Additional Instructions: follow up with your primary care provider as scheduled on 11/11 and discuss restarting a blood presure medicine if you choose to not take the lisinopril if you have severe worsening pain, fevers or feel more ill return to the emergency department Medical Decision Making 65 yo female with hx of htn who stopped taking lisinopril on her own, gout, who comes in with chief complaint of left foot redness and swelling for 3 days with no known trauma or falls. Denies any fevers, chills, calf pain, dyspnea. The distal 1/3 of her left foot does have erythema, not significantly warm to touch, no crepitus or severe tenderness and is mildly swollen. Normal capillary refill and sensation with full range of motion of the toes and ankle, no calf tenderness or leg swelling otherwise. Suspect gout flare but could also be cellulitis though not overly warm to touch. Will obtain xray to evaluate for possible stress fracture, no findings on exam or history to suggest necrotizing fascitis or osteomyelitis. xray shows soft tissue swelling otherwise unremarkable, and she remains stable. Will initiate augmentin to cover for cellulitis and also prednisone for possible gout flare. Patient is currently homeless and would like to speak with care management on resources. Differential Diagnosis Differential Diagnosis: cellulitis, gout, fracture Imaging Data Radiologic Study: Attestation: I personally reviewed and interpreted this imaging study as follows: Imaging: X-Ray Radiologist's impression: IMPRESSION: 1. Significant soft tissue swelling over the dorsum of the foot. 2. There is no evidence of acute fracture.There is no evidence of malalignment or dislocation. HPI General Mode of arrival: ambulatory . Date/Time Provider Initiated Documentation: 11/09/20 16:36 . Limitations to Documentation: no limitations . Information obtained by: patient . History of Present Illness 65 year old F presents to the emergency department with the chief complaint of left foot swelling, described as mild, Quality is described as aching, and is localized to the left and lower extremity. Patient reports no radiation. Patient started experiencing this day(s) (3) and it has been constant. No relieving factors improve symptom(s), No exacerbating factors reported . Patient notes no other symptoms.. Patient did receive the following treatments prior to arrival, none Related Data Home Medications Medication Instructions Recorded Confirmed amoxicillin-pot clavulanate 1 tab PO BID #14 tab 11/09/20 [Augmentin] lisinopril 10 mg PO DAILY 11/09/20 11/09/20 prednisone 60 mg PO DAILY 4 Days #12 tab 11/09/20 Previous Rx's Medication Instructions Recorded amoxicillin-pot clavulanate 1 tab PO BID #14 tab 11/09/20 [Augmentin] prednisone 60 mg PO DAILY 4 Days #12 tab 11/09/20 Allergies Allergy/AdvReac Type Severity Reaction Status Date / Time quetiapine fumarate Allergy Intermediate Unverified 11/09/20 16:41 [From Seroquel] nabumetone [Nabumetone] Allergy Unknown SKIN RASH Unverified 11/09/20 16:41 celecoxib [From Celebrex] AdvReac Unknown PANIC Unverified 11/09/20 16:41 ATTACKS trazodone AdvReac Unknown PANIC Unverified 11/09/20 16:41 ATTACKS, RUBBERY LEGS, HALLUCINATIONS General Stated Complaint: Cellulitis LOBITO: 5 Review of Systems All systems reviewed & are unremarkable except as noted in HPI and below Constitutional Constitutional: Denies chills, Denies fever(s) and Denies weakness Cardiovascular Cardiovascular: Denies chest pain and Denies dyspnea Respiratory Respiratory: Denies cough and Denies dyspnea Gastrointestinal Gastrointestinal: Denies abdominal pain, Denies nausea and Denies vomiting Neurologic Neurologic: Denies weakness Psychiatric Psychiatric: Denies depression [facility] Medical History (Updated 11/09/20 @ 17:27 by Robi Sylvester MD) Essential hypertension Gout Morbid obesity Surgical History Cholecystectomy (10/22/13) Gallstone pancreatitis Colonoscopy - MAC (02/28/14) cystourethroscopy (01/24/13) Dr Carranza-for R ureteral calculus R ureteral stent placed Left extracorporeal shockwave lithotripsy for left renal calculus, 11/15/12 Social History Smoking/Tobacco Use Status: Never Smoking risk assessment performed?: Yes Alcohol Intake: never Drug use: Never Substance use type: does not use Do you feel safe at home: Yes Do you feel safe in your relationship?: Yes Exam Const General: no acute distress Orientation: alert HENMT Head: normal to inspection Ears: external ears normal General nose exam: external nose normal Mouth: moist mucous membranes Eyes General: appearance normal, both eyes and all related structures Neck Neck: normal visual inspection Resp Effort & Inspection: normal respiratory effort and able to speak in complete sentences Cardio Rate: regular rate Skin General skin exam: elasticity normal Neuro General: patient alert and patient oriented x3 Extrem General: capillary refill normal Psych Mental Status: mental status grossly normal Course Vital Signs Vital signs: Vital Signs Temperature 36.6 C 11/09/20 16:33 Pulse 87 11/09/20 16:33 Respiratory Rate 18 11/09/20 16:33 Blood Pressure 185/97 H 11/09/20 16:33 Pulse Oximetry 97 11/09/20 16:33 Temperature 36.6 C 11/09/20 16:33 Temperature Source Temporal Artery Scan 11/09/20 16:33 Pulse 87 11/09/20 16:33 Respiratory Rate 18 11/09/20 16:33 Respiratory Effort Non-Labored 11/09/20 16:39 Blood Pressure 185/97 H 11/09/20 16:33 Blood Pressure Position Sitting 11/09/20 16:33 Pulse Oximetry 97 11/09/20 16:33 Oxygen Delivery Method Room Air 11/09/20 16:33 Oxygen Flow Rate 0 11/09/20 16:33
--- NOTE | 2020-11-09 17:13 | DI.VRAD_ITS ---
PROCEDURE INFORMATION: Exam: XR Left Foot Exam date and time: 11/09/2020 4:44 PM Age: 65 years old Clinical indication: Pain; Foot; Left; Prior surgery; Surgery type: Ortho surgery in 1992; Patient HX: Swelling, red, no trauma TECHNIQUE: Imaging protocol: XR Left foot. Views: 3 or more views. COMPARISON: No relevant prior studies available. FINDINGS: Bones/joints: Screws in the distal tibia Osteopenia There is no evidence of acute fracture.There is no evidence of malalignment or dislocation. Soft tissues: Significant soft tissue swelling over the dorsum of the foot. IMPRESSION: 1. Significant soft tissue swelling over the dorsum of the foot. 2. There is no evidence of acute fracture.There is no evidence of malalignment or dislocation. Dictated and Authenticated by: Ibis Doe MD. Ordering:SRIKANTH Rosenbaum MD
--- NOTE | 2020-11-09 17:51 | CMPROGNOTE_ITS ---
- If Service Date Differs Date of service: 11/09/20 Time of Service: 17:51 Care Management Progress Note CM called by Dr. Sylvester, ED provider, to see patient. Luba is a 65 year old woman who presented to the ED with cellulitis. As she was getting ready to leave she mentioned that she has no place to go; she is currently homeless. Luba was staying at one of the local hotels however she has been asked to leave. Apparently, according to her guardian, she lays in bed all day and does not get up, even to go to the bathroom. He stated that she has ruined 2 beds and a chair and the motel will not let her come back. She has a daughter who is unable to help her and her guardian, also her cousin, is unable to help as well. Luba is in the process of getting a divorce. Luba denies having any community case management. CM will send a referral to [facility] for same. CM also provided Luba with the phone number for [facility] and suggested she contact them tomorrow. Luba was also advised to call [facility] as that is the agency that can provide information about emergence housing, off hours.
[2020-11-09] MEDS: predniSONE 20 MG TAB 60 MG PO (18:12)
[2020-11-09] MEDS: Amoxicillin 875/Clav. 125 TAB PO (18:12)
[2020-11-09 18:30] VITALS: BP 192/97; PULSE 90; RESP 18; TEMP 36.5; O2SAT 98
[2020-11-09 18:37] VITALS: BP 192/97; PULSE 90; RESP 18; TEMP 36.5; O2SAT 97
== END 2020-11-09 18:37 | disposition home or self-care (01) ==
LOC: ER 17:28
PROVIDERS: Emergency Provider Emergency Medicine; PCP Family Medicine
DX: M1A.9XX0 Chronic gout, unspecified, without tophus (tophi) (principal); L03.116 Cellulitis of left lower limb
CPT/HCPCS: 99283; 73630; J7512

== ENCOUNTER 2020-11-17 14:09 | Emergency (ER) | payer MEDICARE, SELFPAY ==
[2020-11-17] VITALS (25 sets, daily range): BP systolic 154–175; BP diastolic 90–105; PULSE 78–119; RESP 13–28; TEMP 36.6; O2SAT 76–100
--- NOTE | 2020-11-17 14:15 | RT.EKG_ITS ---
APPROVED REPORT Exam: Resting ECG Reason for Exam: vomiting Patient Location: E HR:118 bpm ECG Measurements Heart Rate 118 AXIS WA 180 P 268 QRSd 86 QRS 50 QT 349 T 67 QTc 488 Conclusion Ectopic atrial tachycardia, unifocal...abnormal P axis, V-rate> 99 Physician: no stemi
--- NOTE | 2020-11-17 14:15 | W.ED.GENAD ---
Discharge Plan Disposition Patient Disposition: HOME Condition: Improving Discharge Details Clinical Impression: Nausea & vomiting Primary Care Provider: Ilda Mock ED Provider: Luly Parisi Home Meds and New Rx's Prescriptions: New ondansetron 4 mg tablet,disintegrating 4 mg PO TID PRN (Reason: nausea and vomiting) Qty: 6 RF: 0 Continued lisinopril 10 mg tablet 10 mg PO DAILY RF: 0 amoxicillin-pot clavulanate [Augmentin] 875-125 mg tablet 1 tab PO BID Qty: 14 RF: 0 Discharge Instructions Instructions: Acute Nausea and Vomiting (ED) Additional Instructions: It is possible that your nausea and vomiting may be due to your antibiotic as this is a common side effect. It could also be due to a viral illness. Drink plenty of fluids and get plenty of rest. Take the zofran as needed and directed for nausea and vomiting. You were given some zofran to go as well as a prescription which was sent electronically to your pharmcary. Continue taking your augmentin and prednisone until finished. Follow up with your primary care doctor within the next week. Return immediately to the emergency department with any worsening or new concerning symptoms. Discharge Data Discharge Physician: Luly Parisi Medical Decision Making <Troy Flores DO - Last Filed: 11/17/20 14:49> 65-year-old female with a past medical history of gout, hypertension, chronic medical noncompliance presents for nausea vomiting and abdominal pain. Patient was recently seen and assessed in the ED 1 week ago. She was started on Augmentin and prednisone at that time, she has finished those prescriptions, then today she developed epigastric pain nausea vomiting. No blood in her emesis. No diarrhea. No fever or chills. No other sick contacts. No other complaints at this time. No other modifying factors. Exam demonstrates tenderness in the epigastric region. Nonsurgical abdomen on exam. Dry mucous membranes. We will gently rehydrate, give GI cocktail and Zofran, get a CT scan due to her age and risk factors, lipase, monitor closely and reassess. Differential includes pancreatitis, gallstone pathology, cholecystitis less likely. Atypical cardiac etiology is on the differential but I feel this is also less likely. We will get a screening EKG and troponin <Luly Parisi DO - Last Filed: 11/17/20 19:49> 1500 -- Please see Dr. Flores's note for initial presentation, exam, and plan. Case endorsed to f/u on labs and imaging and final disposition. Plan for discharge home if workup negative and pt feels better. Pt is currently taking her augmentin and prednisone which she was prescribed recently for possible gout vs cellulitis on a recent ED visit. She states the symptoms are improving. Her feet are significantly soiled but there is no evidence of cellulitis and she is NV intact. I examined her at bedside. She denied abdominal pain and states her nausea is improved. Her epigastrum is tender. She has a h/o cholecystectomy. Will change to CT abd/pelv with IV contrast and give additional IV fluids. She denies shortness of breath or chest pain but her oxygen dips down into the low 80s on room air when sleeping. She has a h/o ROSALIA. Will place on 1L NC as she is sleeping while awaiting CT. Labs reviewed. Normal WBC. Hgb 17, which is chronically elevated at baseline. Trop negative. EKG no stemi. Lipase normal. 1630 -- Pt reassessed and she still admits to feeling better, pain and nausea improved. CT pending. Urine cath sample obtained and pending. 1730 -- CT notes: IMPRESSION: Mild patchy enhancement and edematous change left kidney suggestive of pyelonephritis. Correlate with clinical situation. Urinalysis negative for infection. As patient has no urinary symptoms, normal white blood cell count and is afebrile, does not appear consistent with UTI or pyelonephritis. Patient reassessed and she continues to feel better. She was able to drink kalyn vidal and eat crackers and is requesting a sandwich. Patient is requesting to go home. She was given Zofran to go and a prescription was sent electronically to her pharmacy. She was advised to continue taking her Augmentin and prednisone until finished Advised to follow up with the primary care doctor for re-evaluation. Usual and customary return precautions given prior to discharge. Medical Records Medical records reviewed: Yes I reviewed the patient's medical records. Imaging Data Radiologic Study: Radiologist's impression: CT Abdomen And Pelvis With Contrast Exam date and time: 11/17/2020 3:22 PM Age: 65 years old Clinical indication: Other: Epgiastric pain, vomiting, R/O pancreatitis, R/O colitis, gastritis TECHNIQUE: Imaging protocol: Computed tomography of the abdomen and pelvis with contrast. Radiation optimization: All CT scans at this facility use at least one of these dose optimization techniques: automated exposure control; mA and/or kV adjustment per patient size (includes targeted exams where dose is matched to clinical indication); or iterative reconstruction. Contrast material: OMNIPAQUE 350; Contrast volume: 100 ml; Contrast route: INTRAVENOUS (IV);? COMPARISON: CT ABD PELVIS WO CONTRAST 11/25/2016 6:59 PM FINDINGS: Mediastinal space: Small hiatal hernia. Liver: Normal. No mass. Gallbladder and bile ducts: Gallbladder surgically absent. Pancreas: Fatty replacement of the pancreas. Spleen: Normal. No splenomegaly. Adrenal glands: Stable bilateral adrenal adenomas 3.5 cm on the right and 1.4 cm on the left. Kidneys and ureters: Simple cysts both kidneys largest 2.6 cm. Nonobstructing calyceal stones at the kidneys. No hydronephrosis. No ureteral stones. Mild patchy enhancement and edematous change left kidney suggestive of pyelonephritis. Stomach and bowel: Colonic diverticula present. No evidence of intestinal perforation or obstruction. Appendix: No evidence of appendicitis. Intraperitoneal space: Unremarkable. No free air. No significant fluid collection. Vasculature: Unremarkable. No abdominal aortic aneurysm. Lymph nodes: Unremarkable. No enlarged lymph nodes. Urinary bladder: Unremarkable as visualized. Reproductive: Unremarkable as visualized. Bones/joints: Unremarkable. No acute fracture. Soft tissues: Fat containing ventral hernia without incarceration. IMPRESSION: Mild patchy enhancement and edematous change left kidney suggestive of pyelonephritis. Correlate with clinical situation. Lab Data Lab results reviewed: Yes I reviewed the patient's lab results. Labs: Laboratory Tests Range/Units 11/17/20 11/17/20 11/17/20 14:22 14:22 14:22 WBC (4.4-10.8) 10^3/uL 7.59 RBC (3.93-5.22) 10^6/uL 5.83 H Hgb (11.2-15.7) g/dL 17.2 H Hct (36.0-46.0) % 52.9 H MCV (80-95) fL 90.7 MCH (27.0-33.0) pg 29.5 MCHC (32.0-36.0) % 32.5 RDW (11.7-14.6) % 13.8 Plt Count (130-400) 10^3/uL 296 MPV (8.0-11.0) fL 9.6 Immature Gran % 0.4 Neutrophils % 87.8 Lymphocytes % 9.1 Monocytes % 2.5 Eosinophils % 0.1 Basophils % 0.1 Nucleated RBC % % 0 Absolute Neutrophils (1.2-6.7) 10^3/uL 6.66 Absolute Lymphocytes (1.2-3.4) 10^3/uL 0.69 L Absolute Monocytes (0.1-0.8) 10^3/uL 0.19 Absolute Eosinophils (0.0-0.7) 10^3/uL 0.01 Absolute Basophils (0.0-0.2) 10^3/uL 0.01 Sodium (136-145) mmol/L 145 Potassium (3.5-5.1) mmol/L 3.5 Chloride (98-107) mmol/L 106 Carbon Dioxide (21.0-32.0) mmol/L 27.8 Anion Gap (3-11) mmol/L 11.2 H BUN (7-18) mg/dL 23 H Creatinine (0.55-1.02) mg/dL 1.2 H Estimated GFR/1.73 m2 (mL/min/1.73m2) 45.23 Glucose (74-106) mg/dL 177 H Calcium (8.5-10.1) mg/dL 10.7 H Total Bilirubin (0.2-1.0) mg/dL 0.4 Conjugated Bilirubin (0.0-0.2) mg/dL 0.1 AST (15-37) U/L 20 ALT (14-59) U/L 26 Alkaline Phosphatase (46-116) U/L 140 H Troponin I (<0.06) ng/mL < 0.05 Total Protein (6.4-8.2) g/dL 9.2 H Albumin (3.4-5.0) g/dL 3.7 Lipase (73-393) U/L 24 Urine Color (Yellow) Urine Clarity (Clear) Urine pH (5-8) Ur Specific [place] (1.005-1.025) Urine Protein (Negative) mg/dL Urine Ketones (Negative) mg/dL Urine Blood (Negative) Urine Nitrite (Negative) Urine Bilirubin (Negative) Urine Urobilinogen (Up TO 0.2) EU/dL Ur Leukocyte Esterase (Negative) Urine RBC (0-2) HPF Urine WBC (0-5) HPF Ur Epithelial Cells (Negative) HPF Urine Crystals (Negative) HPF Urine Bacteria (Negative) HPF Urine Mucus (Negative) Ur Culture Indicated? Urine Glucose (Negative) mg/dL Range/Units 11/17/20 16:35 WBC (4.4-10.8) 10^3/uL RBC (3.93-5.22) 10^6/uL Hgb (11.2-15.7) g/dL Hct (36.0-46.0) % MCV (80-95) fL MCH (27.0-33.0) pg MCHC (32.0-36.0) % RDW (11.7-14.6) % Plt Count (130-400) 10^3/uL MPV (8.0-11.0) fL Immature Gran % Neutrophils % Lymphocytes % Monocytes % Eosinophils % Basophils % Nucleated RBC % % Absolute Neutrophils (1.2-6.7) 10^3/uL Absolute Lymphocytes (1.2-3.4) 10^3/uL Absolute Monocytes (0.1-0.8) 10^3/uL Absolute Eosinophils (0.0-0.7) 10^3/uL Absolute Basophils (0.0-0.2) 10^3/uL Sodium (136-145) mmol/L Potassium (3.5-5.1) mmol/L Chloride (98-107) mmol/L Carbon Dioxide (21.0-32.0) mmol/L Anion Gap (3-11) mmol/L BUN (7-18) mg/dL Creatinine (0.55-1.02) mg/dL Estimated GFR/1.73 m2 (mL/min/1.73m2) Glucose (74-106) mg/dL Calcium (8.5-10.1) mg/dL Total Bilirubin (0.2-1.0) mg/dL Conjugated Bilirubin (0.0-0.2) mg/dL AST (15-37) U/L ALT (14-59) U/L Alkaline Phosphatase (46-116) U/L Troponin I (<0.06) ng/mL Total Protein (6.4-8.2) g/dL Albumin (3.4-5.0) g/dL Lipase (73-393) U/L Urine Color (Yellow) Yellow Urine Clarity (Clear) Clear Urine pH (5-8) 7.0 Ur Specific [place] (1.005-1.025) 1.015 Urine Protein (Negative) mg/dL Negative Urine Ketones (Negative) mg/dL Negative Urine Blood (Negative) Trace-intact H Urine Nitrite (Negative) Negative Urine Bilirubin (Negative) Negative Urine Urobilinogen (Up TO 0.2) EU/dL 0.2 Ur Leukocyte Esterase (Negative) Negative Urine RBC (0-2) HPF 0-2 Urine WBC (0-5) HPF 0-2 Ur Epithelial Cells (Negative) HPF Many Urine Crystals (Negative) HPF Negative Urine Bacteria (Negative) HPF Rare Urine Mucus (Negative) Negative Ur Culture Indicated? No Urine Glucose (Negative) mg/dL Negative ECG Data Attestation: I personally reviewed and interpreted this ECG (s) as follows: Interpretation: rate of 118, ectopic atrial tachycardia, no stemi. CA 180. QRS 50. QTc 488. HPI <Troy Flores DO - Last Filed: 11/17/20 14:49> General Date/Time Provider Initiated Documentation: 11/17/20 14:47. HPI Narrative: 65-year-old female with a past medical history of gout, hypertension, chronic medical noncompliance presents for nausea vomiting and abdominal pain. Patient was recently seen and assessed in the ED 1 week ago. She was started on Augmentin and prednisone at that time, she has finished those prescriptions, then today she developed epigastric pain nausea vomiting. No blood in her emesis. No diarrhea. No fever or chills. No other sick contacts. No other complaints at this time. No other modifying factors. Related Data Home Medications Medication Instructions Recorded Confirmed amoxicillin-pot clavulanate 1 tab PO BID #14 tab 11/09/20 11/17/20 [Augmentin] lisinopril 10 mg PO DAILY 11/09/20 11/17/20 ondansetron 4 mg PO TID PRN #6 tab 11/17/20 Previous Rx's Medication Instructions Recorded amoxicillin-pot clavulanate 1 tab PO BID #14 tab 11/09/20 [Augmentin] ondansetron 4 mg PO TID PRN #6 tab 11/17/20 Allergies Allergy/AdvReac Type Severity Reaction Status Date / Time quetiapine fumarate Allergy Intermediate Unverified 11/17/20 14:38 [From Seroquel] nabumetone [Nabumetone] Allergy Unknown SKIN RASH Unverified 11/17/20 14:38 celecoxib [From Celebrex] AdvReac Unknown PANIC Unverified 11/17/20 14:38 ATTACKS trazodone AdvReac Unknown PANIC Unverified 11/17/20 14:38 ATTACKS, RUBBERY LEGS, HALLUCINATIONS General Stated Complaint: Nausea/Vomit/Diar LOBITO: 3 Review of Systems <Troy Flores DO - Last Filed: 11/17/20 14:49> All systems reviewed & are unremarkable except as noted in HPI and below PFSH <Troy Flores DO - Last Filed: 11/17/20 14:49> Medical History (Updated 11/17/20 @ 14:49 by Troy Flores DO) Essential hypertension Gout Morbid obesity Surgical History Cholecystectomy (10/22/13) Gallstone pancreatitis Colonoscopy - MAC (02/28/14) cystourethroscopy (01/24/13) Dr Carranza-for R ureteral calculus R ureteral stent placed Left extracorporeal shockwave lithotripsy for left renal calculus, 11/15/12 Social History Smoking/Tobacco Use Status: Never Smoking risk assessment performed?: Yes Alcohol Intake: never Drug use: Never Substance use type: does not use Do you feel safe at home: Yes Do you feel safe in your relationship?: Yes Exam <Troy Flores DO - Last Filed: 11/17/20 14:49> Narrative Exam Narrative: 1.Const: Well-nourished, Well-developed, appearing stated age 2.Eyes: PERRL, no conjunctival injection, and symmetrical lids. 3.ENT: Atraumatic external nose and ears. Dry MM. Neck: Symmetric, trachea midline, No thyromegaly. 4.CVS: +S1/S2, No murmurs or gallops. Peripheral pulses 2+ and equal in all extremities. Brisk capillary refill in all extremities. 5.RESP: Unlabored respiratory effort. Clear to auscultation bilaterally. No wheezes rales or rhonchi 6.GI: Soft, nondistended, mild epigastric tenderness. No pain at McBurney's point. Negative Puente sign. Nonsurgical abdomen. 7.MSK: Normocephalic/Atraumatic, Extremities w/o deformity or ttp No cyanosis or clubbing, Normal movement of all extremities 8.Skin: Warm, Dry. No rashes or lesions. 9.Neuro: overnight babysitter II-XII grossly intact. Sensation grossly intact, no focal neurologic deficits. 10.Psych: (AAO) x3. Appropriate mood and affect Course <Troy Flores DO - Last Filed: 11/17/20 14:49> Vital Signs Vital signs: Vital Signs Temperature 36.6 C 11/17/20 14:13 Pulse 102 H 11/17/20 14:13 Blood Pressure 171/95 H 11/17/20 14:13 Pulse Oximetry 96 11/17/20 14:13 Temperature 36.6 C 11/17/20 14:13 Temperature Source Oral 11/17/20 14:13 Pulse 102 H 11/17/20 14:13 Blood Pressure 171/95 H 11/17/20 14:13 Blood Pressure Position Sitting 11/17/20 14:13 Pulse Oximetry 96 11/17/20 14:13 Oxygen Delivery Method Room Air 11/17/20 14:13 Oxygen Flow Rate 0 11/17/20 14:13 Pain Level 8 11/17/20 14:13 Sign Out <Troy Flores DO - Last Filed: 11/17/20 14:49> Sign Out Data: Sign Out Comment: Pending CT scan, labs and reassessment. Epigastric pain with nausea and vomiting starting today. Gave Zofran and GI cocktail. Recently on Augmentin and steroids, likely causing GI upset. Last updated by Troy Flores DO at 11/17/20 14:47
[2020-11-17] MEDS: Normal Saline 1,000 ML 1000 ML IV (14:27)
[2020-11-17] MEDS: Mylanta Suspension 30 ML CUP (14:28)
[2020-11-17] MEDS: Ondansetron 4 MG/2 ML VIAL IVP (14:28)
[2020-11-17 14:46] LABS: Abs Immature Grans 0.03 10^3/uL (0.0-0.06); Absolute Basophil Count 0.01 10^3/uL (0.0-0.2); Absolute Eosinophil Count 0.01 10^3/uL (0.0-0.7); Absolute Lymphocyte Count 0.69 10^3/uL (1.2-3.4); Absolute Monocyte Count 0.19 10^3/uL (0.1-0.8); Absolute Neutrophil Count 6.66 10^3/uL (1.2-6.7); Basophils % 0.1; Eosinophils % 0.1; HCT 52.9 % (36.0-46.0); HGB 17.2 g/dL (11.2-15.7); Immature Grans % 0.4; Lymphocytes % 9.1; MCH 29.5 pg (27.0-33.0); MCHC 32.5 % (32.0-36.0); MCV 90.7 fL (80-95); MPV 9.6 fL (8.0-11.0); Monocytes % 2.5; Neutrophils % 87.8; Nucleated RBC 0 %; Platelet Count 296 10^3/uL (130-400); RBC 5.83 10^6/uL (3.93-5.22); RDW 13.8 % (11.7-14.6); RDW-SD 45.8 fL; WBC 7.59 10^3/uL (4.4-10.8)
[2020-11-17 15:08] LABS: Troponin I < 0.05 ng/mL (<0.06)
--- NOTE | 2020-11-17 15:15 | DI.CT_ITS ---
Exam(s) CT ABDOMEN PELVIS W EXAM: CT ABDOMEN PELVIS W CLINICAL HISTORY: epgiastric pain, vomiting, r/o pancreatitis. TECHNIQUE: Imaging Protocol: Axial computed tomography images with coronal and sagittal reformatted images were created and reviewed CONTRAST MATERIAL: Intravenous: Omnipaque 100cc Oral: None COMPARISON: CT ABD PELVIS WO CONTRAST from 11/25/[address] CHEST PE CTA from 11/21/2019 FINDINGS: VISUALIZED LUNG BASES: Mild benign-appearing increased markings both lung bases. No pleural effusion s.. ABDOMEN: There is no ascites. LIVER: There are no focal hepatic lesions evident . GALLBLADDER/BILIARY: Gallbladder surgically absent. CBD is not dilated. PANCREAS: The pancreas is quite atrophic. No obvious pancreatic mass no dilatation pancreatic duct. No calcifications in pancreatic parenchyma. SPLEEN: Spleen is not enlarged. No obvious intrasplenic lesions. Splenic and portal veins are paten t. ADRENALS: There is a 3.4 by 3.3 cm mass in the right adrenal gland there is a smaller mass in the lef t adrenal gland measuring 1.8 by 1.4 cm. These findings are unchanged from 2017 and therefore probab ly adenomas. KIDNEYS:There is cysts in both kidneys again noted. The largest is an exophytic cyst off the lateral cortex of the right kidney which measures 2.7 by2..6 cm, significantly increased in size from 2017. There are no solid renal masses. Multiple calculi are seen in the left kidney as well as a single c alculus in the right kidney, all nonobstructive. There is no hydronephrosis nor hydroureter none nor calculi in the nondistended urinary bladder.. ABDOMINAL AORTA: Abdominal aorta is not enlarged. LYMPH NODES:There is no retroperitineal nor paraaortic adenopathy. ABDOMINAL WALL: There is an anterior abdominal wall supraumbilical hernia which was evident in 2017. Hernia sac is slightly enlarged from that time, presently measuring 7 cm wide by 4.3 cm AP. Contain s mesenteric fat but no bowel loops and there is no bowel obstruction, free air, nor abscess. GI: There is no evidence of bowel obstruction, free air, nor abscess. PELVIS: GI: No evidence of appendicitis.There is a sigmoid diverticulosis.. A few of the diverticuli in the sigmoid are no significant size. However, there is no obvious acute diverticulitis. LYMPH NODES: There is no intrapelvic nor inguinal adenopathy. REPRODUCTIVE: Uterus is atrophic or surgically absent. There are no abnormal adnexal masses nor free fluid in the pelvis. URINARY BLADDER: No calculi nor obvious masses evident OSSEOUS: No significant osseous lesions. IMPRESSION: 1. Bilateral benign renal cysts. The largest is exophytic off the lateral aspect of the right kidney and measures 2.7 x 2.6 cm. No solid renal masses. 2. There are nonobstructive calculi in both kidneys again noted. No hydronephrosis. 3. Gallbladder is surgically absent. The biliary tree is not dilated. 4. Atrophic pancreas again noted. No masses nor peripancreatic fluid collections. No pancreatic eloisa cifications. 5. Large fat containing anterior abdominal wall periumbilical hernia. This contains mesenteric fat but no bowel loops. There is no bowel obstruction. No free air. No abscess. No ascites. 6. Continued stable appearance of the bilateral adrenal masses, the right again noted be larger than the left and measuring 3.4 x 3.3 cm. The left adrenal nodules considerably smaller and also unchang ed. Fact that these adrenal findings are unchanged from 2017 implies that there are most probably be nign adenomas. RADIATION DOSE DELIVERED: 1,541.24mGy.cm Total DLP DATA REPOSITORY: All CT scans at this facility are submitted to the National Radiology Data Registry (NRDR) Dose Index Registry (DIR) with the [employer] [place] [employer] [employer] (ACR). RADIATION OPTIMIZATION: All CT scans at this facility use at least one of these dose optimization te chniques: automated exposure control; mA and/or kV adjustment per patient size (includes targeted exa ms where dose is matched to clinical indication); or iterative reconstruction.
[2020-11-17 15:43] LABS: ALT 26 U/L (14-59); AST 20 U/L (15-37); Albumin 3.7 g/dL (3.4-5.0); Alkaline Phosphatase 140 U/L (46-116); Anion Gap 11.2 mmol/L (3-11); BUN 23 mg/dL (7-18); Bilirubin, Direct 0.1 mg/dL (0.0-0.2); Bilirubin, Total 0.4 mg/dL (0.2-1.0); CO2 27.8 mmol/L (21.0-32.0); CREATININE 1.2 mg/dL (0.55-1.02); Calcium 10.7 mg/dL (8.5-10.1); Chloride 106 mmol/L (98-107); Estimated GFR 45.23 (mL/min/1.73m2); Glucose 177 mg/dL (74-106); Lipase 24 U/L (73-393); Potassium 3.5 mmol/L (3.5-5.1); Sodium 145 mmol/L (136-145); Total Protein 9.2 g/dL (6.4-8.2)
[2020-11-17] MEDS: Omnipaque 350 MG/ML 100 ML BTL IV (16:25)
[2020-11-17] MEDS: Normal Saline - Diluent 50 ML VIAL IV (16:26)
[2020-11-17] MEDS: Normal Saline Flush 10 ML SYR IVP (16:27)
--- NOTE | 2020-11-17 17:00 | DI.VRAD_ITS ---
PROCEDURE INFORMATION: Exam: CT Abdomen And Pelvis With Contrast Exam date and time: 11/17/2020 3:22 PM Age: 65 years old Clinical indication: Other: Epgiastric pain, vomiting, R/O pancreatitis, R/O colitis, gastritis TECHNIQUE: Imaging protocol: Computed tomography of the abdomen and pelvis with contrast. Radiation optimization: All CT scans at this facility use at least one of these dose optimization techniques: automated exposure control; mA and/or kV adjustment per patient size (includes targeted exams where dose is matched to clinical indication); or iterative reconstruction. Contrast material: OMNIPAQUE 350; Contrast volume: 100 ml; Contrast route: INTRAVENOUS (IV); COMPARISON: CT ABD PELVIS WO CONTRAST 11/25/2016 6:59 PM FINDINGS: Mediastinal space: Small hiatal hernia. Liver: Normal. No mass. Gallbladder and bile ducts: Gallbladder surgically absent. Pancreas: Fatty replacement of the pancreas. Spleen: Normal. No splenomegaly. Adrenal glands: Stable bilateral adrenal adenomas 3.5 cm on the right and 1.4 cm on the left. Kidneys and ureters: Simple cysts both kidneys largest 2.6 cm. Nonobstructing calyceal stones at the kidneys. No hydronephrosis. No ureteral stones. Mild patchy enhancement and edematous change left kidney suggestive of pyelonephritis. Stomach and bowel: Colonic diverticula present. No evidence of intestinal perforation or obstruction. Appendix: No evidence of appendicitis. Intraperitoneal space: Unremarkable. No free air. No significant fluid collection. Vasculature: Unremarkable. No abdominal aortic aneurysm. Lymph nodes: Unremarkable. No enlarged lymph nodes. Urinary bladder: Unremarkable as visualized. Reproductive: Unremarkable as visualized. Bones/joints: Unremarkable. No acute fracture. Soft tissues: Fat containing ventral hernia without incarceration. IMPRESSION: Mild patchy enhancement and edematous change left kidney suggestive of pyelonephritis. Correlate with clinical situation. Dictated and Authenticated by: Sergio Flanagan MD. Ordering:RADAH Mauricio MD
[2020-11-17 17:06] LABS: Bilirubin Negative (Negative); Blood Trace-intact (Negative); Clarity Clear (Clear); Glucose Negative (Negative); Ketones Negative (Negative); Leukocyte Esterase Negative (Negative); Nitrite Negative (Negative); Specific Gravity 1.015 (1.005-1.025); Urobilinogen 0.2 EU/dL (Up TO 0.2)
[2020-11-17 17:17] LABS: WBC 0-2 HPF (0-5)
[2020-11-17 17:18] LABS: Bacteria Rare HPF (Negative); C & S Indicated? No; Crystals Negative HPF (Negative); Epithelial Cells Many HPF (Negative); Mucus Negative (Negative); RBC 0-2 HPF (0-2)
[2020-11-17] MEDS: Ondansetron O.D.T. 4 MG TABEF, 3 TABS/BTL PO (17:45)
== END 2020-11-17 17:55 | disposition home or self-care (01) ==
LOC: ER 19:38
PROVIDERS: Student in an Organized Health Care Education/Training Program; Emergency Provider Physician Assistant; PCP Family Medicine
DX: R11.2 Nausea with vomiting, unspecified (principal); R10.13 Epigastric pain
CPT/HCPCS: 36415; 80053; 83690; 93005; 96361; 96374; 99285; 74177; 81003; 81015; 82248; 84484; 85025; 93010; J2405; J3490

== ENCOUNTER 2020-11-20 13:16 | Emergency (ER) | payer MEDICARE, SELFPAY ==
[2020-11-20] VITALS (18 sets, daily range): BP systolic 157–196; BP diastolic 97–124; PULSE 81–111; RESP 16; TEMP 37.1; O2SAT 90–97
--- NOTE | 2020-11-20 13:15 | RT.EKG_ITS ---
APPROVED REPORT Exam: Resting ECG Reason for Exam: nausea Patient Location: E HR:86 bpm ECG Measurements Heart Rate 86 AXIS TN 160 P 25 QRSd 89 QRS 32 QT 379 T -25 QTc 453 Conclusion Sinus rhythm...normal P axis, V-rate 60- 99 Atrial premature complex...SV complex w/ short R-R interval
[2020-11-20 13:51] LABS: Abs Immature Grans 0.01 10^3/uL (0.0-0.06); Absolute Basophil Count 0.02 10^3/uL (0.0-0.2); Absolute Eosinophil Count 0.07 10^3/uL (0.0-0.7); Absolute Lymphocyte Count 1.09 10^3/uL (1.2-3.4); Absolute Monocyte Count 0.36 10^3/uL (0.1-0.8); Absolute Neutrophil Count 4.84 10^3/uL (1.2-6.7); Basophils % 0.3; Eosinophils % 1.1; HCT 49.1 % (36.0-46.0); HGB 15.6 g/dL (11.2-15.7); Immature Grans % 0.2; Lymphocytes % 17.1; MCH 28.8 pg (27.0-33.0); MCHC 31.8 % (32.0-36.0); MCV 90.8 fL (80-95); MPV 9.1 fL (8.0-11.0); Monocytes % 5.6; Neutrophils % 75.7; Nucleated RBC 0 %; Platelet Count 241 10^3/uL (130-400); RBC 5.41 10^6/uL (3.93-5.22); RDW 13.8 % (11.7-14.6); RDW-SD 45.6 fL; WBC 6.39 10^3/uL (4.4-10.8)
--- NOTE | 2020-11-20 13:51 | ED.GENADUL_ITS ---
Discharge Plan Disposition Patient Disposition: HOME Condition: Good Discharge Details Clinical Impression: Nausea & vomiting, Elevated blood pressure reading Primary Care Provider: Ilda Mock ED Provider: Mraiana Neil Home Meds and New Rx's Prescriptions: New lisinopril 10 mg tablet 10 mg PO DAILY Qty: 14 RF: 0 ondansetron HCl [Zofran] 4 mg tablet 4 mg PO Q8H PRNQty: 7 RF: 0 No Action lisinopril 10 mg tablet 10 mg PO DAILY RF: 0 amoxicillin-pot clavulanate [Augmentin] 875-125 mg tablet 1 tab PO BID Qty: 14 RF: 0 ondansetron 4 mg tablet,disintegrating 4 mg PO TID PRN (Reason: nausea and vomiting) Qty: 6 RF: 0 Discharge Instructions Instructions: Acute Nausea and Vomiting (ED) Additional Instructions: Please follow-up with your primary care physician Take your lisinopril as prescribed Use cane or walker with ambulation Return earlier should you have new or worsening complaints Discharge Data Discharge Date/Time-TO BE ENTERED AT DEPARTURE: 11/20/20 15:58 Medical Decision Making Patient is alert, oriented, of decisional capacity Repeat blood pressure is 160/89, pulse of 80, able to eat and drink prior to discharge home, Kathe, case management involved and patient has the resources set up for home Patient feels comfortable discharge home reportedly Potassium supplementation, 1 L of IV hydration Follow-up with primary care physician recommended Return precautions discussed and patient expressed understanding, discharged home in stable condition No clinical evidence of hypertensive emergency, given prescription for lisinopril with only 14 have been made for repeat blood work No evidence of urinary tract infection Differential Diagnosis Differential Diagnosis: Hypertensive urgency, gastroenteritis, electrolyte abnormality, urinary tra Medical Records Medical records reviewed: Yes I reviewed the patient's medical records. Lab Data Lab results reviewed: Yes I reviewed the patient's lab results. HPI General Mode of arrival: ambulatory . Date/Time Provider Initiated Documentation: 11/20/20 13:18 . Limitations to Documentation: no limitations . Information obtained by: patient . HPI Narrative: This 65-year-old female with history of hypertension presents with report of lightheadedness today with some nausea and vomiting yesterday. She called EMS because her blood pressure was reportedly elevated. Upon arrival she states that she had not had anything to eat or drink in the past 24 hours as they do not have any food or running water in the house. She states she does feel safe at home but has limited resources. She denies any chest pain or shortness of breath. She denies being abused at home. She denies any urinary symptoms. She states she has diagnosis of hypertension is supposed to be taking lisinopril, she has not taking lisinopril at this time as she cannot find the prescription . Related Data Home Medications Medication Instructions Recorded Confirmed amoxicillin-pot clavulanate 1 tab PO BID #14 tab 11/09/20 11/17/20 [Augmentin] lisinopril 10 mg PO DAILY 11/09/20 11/17/20 ondansetron 4 mg PO TID PRN #6 tab 11/17/20 lisinopril 10 mg PO DAILY #14 tab 11/20/20 ondansetron HCl [Zofran] 4 mg PO Q8H PRN #7 tab 11/20/20 Previous Rx's Medication Instructions Recorded amoxicillin-pot clavulanate 1 tab PO BID #14 tab 11/09/20 [Augmentin] ondansetron 4 mg PO TID PRN #6 tab 11/17/20 lisinopril 10 mg PO DAILY #14 tab 11/20/20 ondansetron HCl [Zofran] 4 mg PO Q8H PRN #7 tab 11/20/20 Allergies Allergy/AdvReac Type Severity Reaction Status Date / Time quetiapine fumarate Allergy Intermediate Unverified 11/17/20 14:38 [From Seroquel] nabumetone [Nabumetone] Allergy Unknown SKIN RASH Unverified 11/17/20 14:38 celecoxib [From Celebrex] AdvReac Unknown PANIC Unverified 11/17/20 14:38 ATTACKS trazodone AdvReac Unknown PANIC Unverified 11/17/20 14:38 ATTACKS, RUBBERY LEGS, HALLUCINATIONS General Stated Complaint: Nausea/Vomit/Diar LOBITO: 3 Review of Systems Narrative: Review of systems negative x7 aside from where indicated in HPI [facility] Medical History (Updated 11/20/20 @ 15:21 by LORNA Bello) Essential hypertension Gout Morbid obesity Surgical History Cholecystectomy (10/22/13) Gallstone pancreatitis Colonoscopy - MAC (02/28/14) cystourethroscopy (01/24/13) Dr Carranza-for R ureteral calculus R ureteral stent placed Left extracorporeal shockwave lithotripsy for left renal calculus, 11/15/12 Social History Smoking/Tobacco Use Status: Never Smoking risk assessment performed?: Yes Alcohol Intake: never Drug use: Never Substance use type: does not use Do you feel safe at home: Yes Do you feel safe in your relationship?: Yes Exam Const General: cooperative and no acute distress HENMT Other: Moist mucous membranes Chest Chest: normal inspection of the chest Resp Effort & Inspection: normal respiratory effort Cardio Rate: regular rate Rhythm: regular rhythm GI Inspection: normal to inspection Other: Nontender Skin General skin exam: no rashes or lesions noted Neuro General: patient alert, patient oriented x3 and CN's II-XI intact bilaterally Cranial Nerves: PERRL and tongue midline Speech: speech normal Course Vital Signs Vital signs: Vital Signs Temperature 37.1 C 11/20/20 13:16 Pulse 97 H 11/20/20 13:16 Respiratory Rate 16 11/20/20 13:16 Blood Pressure 167/119 H 11/20/20 13:16 Pulse Oximetry 96 11/20/20 13:16 Temperature 37.1 C 11/20/20 13:16 Temperature Source Skin 11/20/20 13:16 Pulse 97 H 11/20/20 13:16 Respiratory Rate 16 11/20/20 13:16 Respiratory Effort 11/20/20 13:21 Blood Pressure 167/119 H 11/20/20 13:16 Blood Pressure Position Supine 11/20/20 13:16 Pulse Oximetry 96 11/20/20 13:16 Oxygen Delivery Method Room Air 11/20/20 13:16 Oxygen Flow Rate 0 11/20/20 13:16 Pain Level 8 11/20/20 13:16
[2020-11-20] MEDS: Normal Saline 1,000 ML 1000 ML IV (14:08)
[2020-11-20 14:09] LABS: ALT 20 U/L (14-59); AST 13 U/L (15-37); Alkaline Phosphatase 125 U/L (46-116); Anion Gap 6.4 mmol/L (3-11); BUN 19 mg/dL (7-18); Bilirubin, Total 0.5 mg/dL (0.2-1.0); CO2 31.6 mmol/L (21.0-32.0); CREATININE 1.3 mg/dL (0.55-1.02); Calcium 9.8 mg/dL (8.5-10.1); Chloride 107 mmol/L (98-107); Estimated GFR 41.24 (mL/min/1.73m2); Glucose 141 mg/dL (74-106); Magnesium 2.3 mg/dL (1.8-2.4); Potassium 3.4 mmol/L (3.5-5.1); Sodium 145 mmol/L (136-145); Total Protein 7.6 g/dL (6.4-8.2)
[2020-11-20 14:18] LABS: Troponin I < 0.05 ng/mL (<0.06)
[2020-11-20 14:42] LABS: Bilirubin Negative (Negative); Blood Small (Negative); Clarity Sl Cloudy (Clear); Glucose Negative (Negative); Ketones Negative (Negative); Leukocyte Esterase Negative (Negative); Nitrite Negative (Negative); Specific Gravity 1.025 (1.005-1.025); Urobilinogen 0.2 EU/dL (Up TO 0.2)
[2020-11-20] MEDS: Acetaminophen 325 MG TAB 650 MG PO (14:44)
[2020-11-20 14:52] LABS: Bacteria Few HPF (Negative); C & S Indicated? No; Crystals Negative HPF (Negative); Epithelial Cells Many HPF (Negative); Mucus Trace (Negative); RBC 0-2 HPF (0-2)
--- NOTE | 2020-11-20 16:32 | PDOC.ERCMPRO ---
- If Service Date Differs Date of service: 11/20/20 Time of Service: 16:32 Care Management Progress Note Luba presents in the ED for nausea and vomiting. JESSICA is asked to meet with Luba to offer resources as she reports to ED provider that she has no food in the home. Luba says she has food stamps but her and Jose, their guardian, has control of them. She admits that the guardian does go grocery shopping for them and brings them food, but states he hasn't done that recently and the food is currently gone. When asked if she has contacted the guardian to let him know the food is gone, she says she has not. We discuss the various food shelves in the area and Luba states she has been to the one in [facility] and knows where it is located. JESSICA provides her with contact information for the food shelf in [place] and for the [employer] [place] [facility]. JESSICA is also asked to contact Home Health to increase Luba's in-home services. The referral for Home Health RN and PT services was made by JESSICA on November 12, 2020, which is less than 10 days ago. JESSICA contacts Home Health and speaks with Jo Ann who advises that Home Health started providing services last November 13, and Luba had 4 visits this week. She also shares that Luba has been refusing to work with PT. This information is relayed to ED provider.
== END 2020-11-20 15:58 | disposition home or self-care (01) ==
PROVIDERS: Emergency Provider Physician Assistant; PCP Family Medicine
DX: R11.2 Nausea with vomiting, unspecified (principal); R03.0 Elevated blood-pressure reading, without diagnosis of hypertension
CPT/HCPCS: 36415; 80053; 93005; 96360; 99284; 81003; 81015; 83735; 84484; 85025; 93010; 99283

== ENCOUNTER 2020-12-28 19:49 | Emergency (ER) | payer MEDICARE, SELFPAY ==
--- NOTE | 2020-12-28 19:58 | ED.GENADUL_ITS ---
Discharge Plan Disposition Patient Disposition: HOME Condition: Improving Discharge Details Clinical Impression: Acute dehydration, Hypertension Primary Care Provider: Ilda Mock ED Provider: Gianluca Madrigal Home Meds and New Rx's Prescriptions: Continued lisinopril 10 mg tablet 10 mg PO DAILY 14 Days Qty: 14 RF: 0 No Action ondansetron 4 mg tablet,disintegrating 4 mg PO TID PRN (Reason: nausea and vomiting) Qty: 6 RF: 0 colchicine 0.6 mg Capsule 0.6 mg PO BID RF: 0 Discharge Instructions Instructions: Dehydration (ED), Hypertension (ED) Additional Instructions: We will ask our care management team to arrange a follow-up for you at the [facility] to reestablish care. In the meantime we have restarted your lisinopril which you should take once daily as prescribed. Return to the ER for any acute concerns. May use the provided ondansetron if needed for recurrent nausea. Medical Decision Making 65-year-old female brought by EMS with complaint of nausea and few episodes of intermittent emesis today. She was found to have a heart rate approximately 120 blood pressure 90 and fluids were started on route by EMS. Patient states she now feels better and her first question is can I eat. Patient stable, interactive. Given Zofran, 1 L saline, referred for screening laboratories. Patient does appear dehydrated with elevated BUN and creatinine, sodium of 146. Subjectively she is significantly improved following 1 L of fluid. Of note her uric acid and CRP are discretely elevated. She has no foot pain per se and has stopped taking her medications including allopurinol and lisinopril. I do not feel the presentation today is consistent with an acute gout flare. She will benefit from restarting her medications. We will ask care management to arrange outpatient follow-up in the [facility] for recheck. Lab Data Lab results reviewed: Yes I reviewed the patient's lab results. Labs: Laboratory Results - last 24 hr 12/28/20 12/28/20 20:35 20:35 WBC 5.82 RBC 5.23 H Hgb 15.4 Hct 48.5 H MCV 92.7 MCH 29.4 MCHC 31.8 L RDW 14.0 Plt Count 208 MPV 9.5 Sodium 146 H Potassium 3.8 Chloride 108 H Carbon Dioxide 27.6 Anion Gap 10.4 BUN 24 H Creatinine 1.3 H Estimated GFR/1.73 m2 41.24 Glucose 147 H Uric Acid 8.9 H Calcium 10.1 C-Reactive Protein 0.88 H HPI General Mode of arrival: EMS . Date/Time Provider Initiated Documentation: 12/28/20 19:52 . Limitations to Documentation: no limitations . Information obtained by: patient and EMS . History of Present Illness 65 year old F presents to the emergency department with the chief complaint of Brought by EMS for weakness and vomiting today, improved with fluids, described as mild and similar to prior episodes, and is localized to the abdomen. Patient reports no radiation. Patient started experiencing this hour(s) and it has been intermittent. No relieving factors improve symptom(s), No exacerbating factors reported . Patient notes denies fever/chills, headaches, shortness of breath, syncope and weakness. Patient did receive the following treatments prior to arrival, none Related Data Home Medications Medication Instructions Recorded Confirmed ondansetron 4 mg PO TID PRN #6 tab 11/17/20 12/28/20 colchicine 0.6 mg PO BID 12/28/20 12/28/20 lisinopril 10 mg PO DAILY 14 Days #14 tab 12/28/20 Previous Rx's Medication Instructions Recorded ondansetron 4 mg PO TID PRN #6 tab 11/17/20 lisinopril 10 mg PO DAILY 14 Days #14 tab 12/28/20 Allergies Allergy/AdvReac Type Severity Reaction Status Date / Time quetiapine fumarate Allergy Intermediate Unverified 12/28/20 20:22 [From Seroquel] nabumetone [Nabumetone] Allergy Unknown SKIN RASH Unverified 12/28/20 20:22 celecoxib [From Celebrex] AdvReac Unknown PANIC Unverified 12/28/20 20:22 ATTACKS trazodone AdvReac Unknown PANIC Unverified 12/28/20 20:22 ATTACKS, RUBBERY LEGS, HALLUCINATIONS General LOBITO: 3 Review of Systems Narrative: Not taking any medications right now. No recent fever. No headache, fall or injury. States she does have gout but no foot pain at this time. 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 [facility] Medical History (Updated 12/28/20 @ 21:07 by Gianluca Madrigal MD) Essential hypertension Gout Morbid obesity Surgical History Cholecystectomy (10/22/13) Gallstone pancreatitis Colonoscopy - MAC (02/28/14) cystourethroscopy (01/24/13) Dr Carranza-for R ureteral calculus R ureteral stent placed Left extracorporeal shockwave lithotripsy for left renal calculus, 11/15/12 Social History Smoking/Tobacco Use Status: Never Smoking risk assessment performed?: Yes Alcohol Intake: never Drug use: Never Substance use type: does not use Do you feel safe at home: Yes Do you feel safe in your relationship?: Yes Exam Narrative Exam Narrative: GEN: awake, alert, oriented 3. Pleasant, interactive. HEAD: Normocephalic, atraumatic ENT: Mucous membranes moist, oropharynx unremarkable, External ear exam unremarkable EYES: PERRL, EOMI NECK: Full ROM, no HAWA, no menigismus CHEST/RESP: Nontender, clear to auscultation bilateral, no wheeze/rhonchi/rales CARDIOVASCULAR: RRR, no murmur, rub gavin. 2+ Rad pulse bilateral ABDOMEN: Soft, nontender, no mass. +Bowel sounds EXT: Full ROM, no edema, no rash Neuro: Grossly normal neurologic exam, conversant, interactive. Psych: Speech fluent, thoughts congruent, affect normal
[2020-12-28 20:16] VITALS: BP 176/120; PULSE 110; RESP 20; TEMP 36.1; O2SAT 94
[2020-12-28 20:30] VITALS: BP 180/112; PULSE 102; RESP 18; O2SAT 94
[2020-12-28] MEDS: Normal Saline 1,000 ML 1000 ML IV (20:35)
[2020-12-28 20:46] LABS: HCT 48.5 % (36.0-46.0); HGB 15.4 g/dL (11.2-15.7); MCH 29.4 pg (27.0-33.0); MCHC 31.8 % (32.0-36.0); MCV 92.7 fL (80-95); MPV 9.5 fL (8.0-11.0); Platelet Count 208 10^3/uL (130-400); RBC 5.23 10^6/uL (3.93-5.22); RDW-SD 47.8 fL; WBC 5.82 10^3/uL (4.4-10.8)
[2020-12-28] MEDS: Ondansetron 4 MG/2 ML VIAL IVP (20:50)
[2020-12-28 20:57] LABS: Anion Gap 10.4 mmol/L (3-11); BUN 24 mg/dL (7-18); C-Reactive Protein 0.88 mg/dL (0.0-0.3); CO2 27.6 mmol/L (21.0-32.0); CREATININE 1.3 mg/dL (0.55-1.02); Calcium 10.1 mg/dL (8.5-10.1); Chloride 108 mmol/L (98-107); Estimated GFR 41.24 (mL/min/1.73m2); Glucose 147 mg/dL (74-106); Potassium 3.8 mmol/L (3.5-5.1); Sodium 146 mmol/L (136-145); Uric Acid 8.9 mg/dL (2.6-6.0)
[2020-12-28 21:00] VITALS: BP 210/112; PULSE 98; RESP 18; O2SAT 96
[2020-12-28 21:14] LABS: Bilirubin Negative (Negative); Blood Trace-intact (Negative); Clarity Clear (Clear); Glucose Negative (Negative); Ketones Negative (Negative); Leukocyte Esterase Negative (Negative); Nitrite Negative (Negative); Urobilinogen 0.2 EU/dL (Up TO 0.2); pH 7.5 (5-8)
--- NOTE | 2020-12-28 21:18 | NUR.NOTE ---
Nursing Note: Patient placed on care management referral for follow up with [facility].
[2020-12-28 21:28] LABS: Bacteria Few HPF (Negative); C & S Indicated? No; Casts Negative LPF (Negative); Crystals Negative HPF (Negative); Epithelial Cells Few HPF (Negative); Mucus Negative (Negative); WBC 0-2 HPF (0-5)
[2020-12-28 21:30] VITALS: BP 195/97; PULSE 96; RESP 19; O2SAT 96
[2020-12-28] MEDS: Lisinopril 10 MG TAB PO (21:49)
[2020-12-28] MEDS: Ondansetron O.D.T. 4 MG TABEF, 3 TABS/BTL PO (21:51)
[2020-12-28 22:11] VITALS: BP 189/112; PULSE 92
== END 2020-12-28 22:30 | disposition home or self-care (01) ==
PROVIDERS: Emergency Provider Emergency Medicine; PCP Family Medicine
DX: E86.0 Dehydration (principal); I10 Essential (primary) hypertension
CPT/HCPCS: 36415; 80048; 85027; 96361; 96374; 99284; 81003; 81015; 84550; 86140; 99283; J2405

== ENCOUNTER 2021-01-15 15:48 | Outpatient (REF) | payer MEDICARE, MEDICAID, SELFPAY ==
[2021-01-15 20:47] LABS: Abs Immature Grans 0.02 10^3/uL (0.0-0.06); Absolute Basophil Count 0.03 10^3/uL (0.0-0.2); Absolute Eosinophil Count 0.09 10^3/uL (0.0-0.7); Absolute Lymphocyte Count 1.08 10^3/uL (1.2-3.4); Absolute Monocyte Count 0.43 10^3/uL (0.1-0.8); Absolute Neutrophil Count 6.38 10^3/uL (1.2-6.7); Basophils % 0.4; Eosinophils % 1.1; HCT 47.3 % (36.0-46.0); HGB 14.9 g/dL (11.2-15.7); Immature Grans % 0.2; Lymphocytes % 13.4; MCH 28.9 pg (27.0-33.0); MCHC 31.5 % (32.0-36.0); MCV 91.8 fL (80-95); MPV 10.4 fL (8.0-11.0); Monocytes % 5.4; Neutrophils % 79.5; Nucleated RBC 0 %; Platelet Count 256 10^3/uL (130-400); RBC 5.15 10^6/uL (3.93-5.22); RDW 13.9 % (11.7-14.6); RDW-SD 46.7 fL; WBC 8.03 10^3/uL (4.4-10.8)
[2021-01-15 21:18] LABS: ALT 19 U/L (14-59); AST 16 U/L (15-37); Albumin 3.5 g/dL (3.4-5.0); Alkaline Phosphatase 132 U/L (46-116); BUN 27 mg/dL (7-18); Bilirubin, Total 0.4 mg/dL (0.2-1.0); CREATININE 1.3 mg/dL (0.55-1.02); Calcium 10.4 mg/dL (8.5-10.1); Chloride 108 mmol/L (98-107); Estimated GFR 41.24 (mL/min/1.73m2); Glucose 128 mg/dL (74-106); Potassium 3.9 mmol/L (3.5-5.1); Sodium 145 mmol/L (136-145); TSH (W/Ref FT4) 1.58 uIU/mL (0.36-3.74); Total Protein 7.8 g/dL (6.4-8.2)
[2021-01-15 21:27] LABS: Hemoglobin A1C 5.5 % (<5.7)
[2021-01-15 21:32] LABS: Calculated LDL 124 mg/dL (<100); Cholesterol 205 mg/dL (<200); HDL Cholesterol 45 mg/dL (40-60); Triglyceride 181 mg/dL (<150)
[2021-01-16 13:41] LABS: Vitamin D 25 Total 6.8 ng/mL (30-100)
== END 2021-01-15 15:49 | disposition home or self-care (01) ==
LOC: NCHCN 15:48
PROVIDERS: PCP Family Medicine; Visit Provider Family Medicine
DX: I10 Essential (primary) hypertension (principal); E55.9 Vitamin D deficiency, unspecified; M10.9 Gout, unspecified; E66.9 Obesity, unspecified
CPT/HCPCS: 80053; 80061; 82306; 83036; 84443; 85025

== ENCOUNTER 2021-04-08 11:20 | Emergency (ER) | payer MEDICARE, MEDICAID, SELFPAY ==
[2021-04-08 11:21] VITALS: BP 183/91; PULSE 99; RESP 18; TEMP 36.4; O2SAT 94
--- NOTE | 2021-04-08 11:45 | DI.RAD_ITS ---
Exam(s) XR FOOT RT COMPLETE EXAM: XR FOOT RT COMPLETE CLINICAL HISTORY: FOot pain, hx gout. TECHNIQUE: 2D digital imaging was performed of the right foot. Three images were obtained. AP, obl ique and lateral views were obtained. COMPARISON: CR XR FOOT RT COMPLETE from 06/23/2020 FINDINGS: Examination was limited secondary to poor patient cooperation. BONES: No acute fracture is present. No bony destructive lesion is seen. Small plantar calcaneal spur . JOINTS: No dislocation present. The 1st MTP joint is well maintained. No erosions are seen. Mild de generative changes are seen at the talonavicular joint and the articulation between the navicular and the cuneiforms. SOFT TISSUE: Atherosclerosis. Diffuse soft tissue swelling of the foot. IMPRESSION: 1. Diffuse soft tissue swelling of the foot. 2. No erosions seen at the 1st MTP joint. DATA REPOSITORY: RADIATION DOSE DELIVERED:
--- NOTE | 2021-04-08 11:51 | W.ED.GENAD ---
Discharge Plan Disposition Patient Disposition: HOME Condition: Improving Discharge Details Clinical Impression: Gout attack Primary Care Provider: Ilda Mock ED Provider: Gianluca Madrigal Home Meds and New Rx's Prescriptions: New prednisone 50 mg tablet 50 mg PO DAILY 5 Days Qty: 5 RF: 0 Continued lisinopril 10 mg tablet 10 mg PO DAILY 14 Days Qty: 14 RF: 0 No Action colchicine 0.6 mg Capsule 0.6 mg PO BID RF: 0 Discharge Instructions Instructions: Gout (ED) Additional Instructions: We will ask our care management team to make a follow-up appointment at [facility]. Please restart your lisinopril which I again prescribed for you. Take prednisone as prescribed for this gout exacerbation. Wear hard soled walking shoe/ankle boot as needed for comfort 7 to 10 days time. Return to the ER for any acute concerns. Medical Decision Making 65-year-old female with a previous history of gout presents with the insidious onset of right foot pain over 2 days time. She is hypertensive but afebrile in no distress. The foot is mildly warm, patient does not have a fever. Referred for x-ray which does not reveal underlying fracture. Given her history of gout, recent noncompliance with medications, I do feel this is most likely. We will treat her with a short burst of prednisone. She is given a walking hard soled shoe for comfort. HPI General Mode of arrival: ambulatory. Date/Time Provider Initiated Documentation: 04/08/21 11:27. Limitations to Documentation: no limitations. Information obtained by: patient. History of Present Illness 65 year old F presents to the emergency department with the chief complaint of Right foot pain, described as moderate and similar to prior episodes, Quality is described as dull and constant, and is localized to the right and lower extremity. Patient reports no radiation. Patient started experiencing this day(s) and it has been constant. No relieving factors improve symptom(s), No exacerbating factors reported . Patient did receive the following treatments prior to arrival, none Related Data Home Medications Medication Instructions Recorded Confirmed colchicine 0.6 mg PO BID 12/28/20 04/08/21 lisinopril 10 mg PO DAILY 14 Days #14 tab 04/08/21 prednisone 50 mg PO DAILY 5 Days #5 tab 04/08/21 Previous Rx's Medication Instructions Recorded lisinopril 10 mg PO DAILY 14 Days #14 tab 04/08/21 prednisone 50 mg PO DAILY 5 Days #5 tab 04/08/21 Allergies Allergy/AdvReac Type Severity Reaction Status Date / Time quetiapine fumarate Allergy Intermediate Unverified 04/08/21 11:31 [From Seroquel] nabumetone [Nabumetone] Allergy Unknown SKIN RASH Unverified 04/08/21 11:31 celecoxib [From Celebrex] AdvReac Unknown PANIC Unverified 04/08/21 11:31 ATTACKS trazodone AdvReac Unknown PANIC Unverified 04/08/21 11:31 ATTACKS, RUBBERY LEGS, HALLUCINATIONS General Stated Complaint: Orthopedic LOBITO: 3 Review of Systems Narrative: Pain with walking. Denies fall or injury. Feels similar to previous gout. FOR[facility] Medical History (Updated 04/08/21 @ 12:53 by Gianluca Madrigal MD) Essential hypertension Gout Morbid obesity Surgical History Cholecystectomy (10/22/13) Gallstone pancreatitis Colonoscopy - MAC (02/28/14) cystourethroscopy (01/24/13) Dr Carranza-for R ureteral calculus R ureteral stent placed Left extracorporeal shockwave lithotripsy for left renal calculus, 11/15/12 Social History Smoking/Tobacco Use Status: Never Smoking risk assessment performed?: Yes Alcohol Intake: never Drug use: Never Substance use type: does not use Do you feel safe at home: Yes Do you feel safe in your relationship?: Yes Exam Narrative Exam Narrative: GEN: awake, alert, oriented 3. Pleasant, interactive. HEAD: Normocephalic, atraumatic ENT: Mucous membranes moist, oropharynx unremarkable, External ear exam unremarkable EYES: PERRL, EOMI NECK: Full ROM, no HAWA, no menigismus CHEST/RESP: No respiratory distress EXT: Full ROM, right ankle tender to palpation, mildly warm to touch, no overlying erythema. Both feet are crusted with dirt. Neuro: Grossly normal neurologic exam, conversant, interactive. Psych: Speech fluent, thoughts congruent, affect normal Course Vital Signs Vital signs: Vital Signs Temperature 36.4 C L 04/08/21 11:21 Pulse 99 H 04/08/21 11:21 Respiratory Rate 18 04/08/21 11:21 Blood Pressure 183/91 H 04/08/21 11:21 Pulse Oximetry 94 04/08/21 11:21 Temperature 36.4 C L 04/08/21 11:21 Temperature Source Skin 04/08/21 11:21 Pulse 99 H 04/08/21 11:21 Respiratory Rate 18 04/08/21 11:21 Respiratory Effort 04/08/21 11:33 Blood Pressure 183/91 H 04/08/21 11:21 Pulse Oximetry 94 04/08/21 11:21 Oxygen Delivery Method Room Air 04/08/21 11:21 Oxygen Flow Rate 0 04/08/21 11:21 Pain Level 7 04/08/21 11:35
[2021-04-08] MEDS: predniSONE 20 MG TAB 60 MG PO (13:10)
== END 2021-04-08 13:29 | disposition home or self-care (01) ==
PROVIDERS: Emergency Provider Emergency Medicine; PCP Family Medicine
DX: M10.9 Gout, unspecified (principal); M79.671 Pain in right foot
CPT/HCPCS: 29515; 99283; 73630; J7512

== ENCOUNTER 2021-04-21 12:25 | Emergency (ER) | payer MEDICARE, SELFPAY ==
[2021-04-21] VITALS (77 sets, daily range): BP systolic 35–210; BP diastolic 12–150; PULSE 50–158; RESP 13–37; O2SAT 79–99
--- NOTE | 2021-04-21 12:30 | DI.CT_ITS ---
Exam(s) CT HEAD WO EXAM: CT HEAD WO CLINICAL HISTORY: collapse, unresponsive. TECHNIQUE: Imaging Protocol: Axial computed tomography images with coronal and sagittal reformatted images were created and reviewed COMPARISON: CT HEAD WITHOUT CONTRAST from 10/07/2013 CT HEAD WITHOUT CONTRAST from 10/07/2013 FINDINGS: Ventricles and Extra axial spaces: Normal in size and morphology for the patient's age. The left MCA appears hyperdense relative to the basilar artery in the contralateral MCA suspicious for the hyperde nse MCA sign and thrombus. Hemorrhage: None. Cerebral parenchyma: Normal. Midline shift: None. Brainstem/Cerebellum: Normal. Calvarium: Normal. Visualized Paranasal sinuses/Mastoids: Clear. Soft Tissues: Unremarkable. IMPRESSION: 1. Hyperdense left MCA suspicious for hyperdense MCA sign in thrombus. 2. No acute intracranial hemorrhage. 3. Results of this exam have been verbally communicated with provider. RADIATION DOSE DELIVERED: 791.68mGy.cm Total DLP DATA REPOSITORY: All CT scans at this facility are submitted to the National Radiology Data Registry (NRDR) Dose Index Registry (DIR) with the [employer] ([employer]). RADIATION OPTIMIZATION: All CT scans at this facility use at least one of these dose optimization te chniques: automated exposure control; mA and/or kV adjustment per patient size (includes targeted exa ms where dose is matched to clinical indication); or iterative reconstruction.
--- NOTE | 2021-04-21 12:30 | RT.EKG_ITS ---
APPROVED REPORT Exam: Resting ECG Reason for Exam: unresponsive Patient Location: E HR:78 bpm ECG Measurements Heart Rate 78 AXIS VA 111 P -64 QRSd 134 QRS 73 QT 364 T 43 QTc 416 Conclusion Sinus or ectopic atrial rhythm...P axis (-45,135) Right bundle branch block...QRSd>120, terminal axis(90,270)
[2021-04-21] MEDS: PROPOFOL 1,000 MG/100 ML BTL 20 MG (12:40)
--- NOTE | 2021-04-21 12:45 | RT.EKG_ITS ---
APPROVED REPORT Exam: Resting ECG Reason for Exam: unresponsive Patient Location: E HR:137 bpm ECG Measurements Heart Rate 137 AXIS DC 100 P 0 QRSd 154 QRS 74 QT 339 T 22 QTc 511 Conclusion Sinus tachycardia...rate> 99 Right bundle branch block...QRSd>120, terminal axis(90,270)
[2021-04-21] MEDS: DOPamine 400 MG/250 ML BAG IV (13:00)
[2021-04-21 13:05] LABS: Absolute Basophil Count 0.06 10^3/uL (0.0-0.2); Absolute Eosinophil Count 0.31 10^3/uL (0.0-0.7); Absolute Lymphocyte Count 4.88 10^3/uL (1.2-3.4); Absolute Monocyte Count 1.09 10^3/uL (0.1-0.8); Absolute Neutrophil Count 11.89 10^3/uL (1.2-6.7); Basophils % 0.3; Eosinophils % 1.7; HGB 14.6 g/dL (11.2-15.7); Immature Grans % 1.1; Lymphocytes % 26.5; MCH 29.4 pg (27.0-33.0); MCHC 28.6 % (32.0-36.0); MCV 102.8 fL (80-95); MPV 10.4 fL (8.0-11.0); Monocytes % 5.9; Neutrophils % 64.5; Nucleated RBC 0 %; Platelet Count 214 10^3/uL (130-400); RBC 4.96 10^6/uL (3.93-5.22); RDW 13.7 % (11.7-14.6); RDW-SD 52.6 fL; WBC 18.43 10^3/uL (4.4-10.8)
--- NOTE | 2021-04-21 13:05 | W.ED.GENAD ---
Discharge Plan Disposition Patient Disposition: Discharge Details Clinical Impression: Comfort measures only status, Bilateral pulmonary embolism, Acute ischemic left MCA stroke, Acute respiratory failure, Elevated troponin Primary Care Provider: Ilda Mock ED Provider: Luly Parisi Discharge Data Date/Time: 04/21/21 23:59 Discharge Date/Time-TO BE ENTERED AT DEPARTURE: 04/21/21 22:36 Medical Decision Making <Gianluca Madrigal MD - Last Filed: 04/23/21 07:41> 65-year-old female who has been sitting on her couch per report for 2 weeks and immobile. She called EMS for persistent foot pain. She suddenly reported shortness of breath during their evaluation in her home and became unresponsive. She was placed in ambulance and assisted with [id number] on route. An IO was placed in her left tibial plateau by EMS. She arrives to the ER unresponsive, no gag reflex, with [id number] assisted ventilation. IV access was established, patient placed on a playground monitor, given fluid bolus. Given lack of gag reflex and unresponsiveness, patient was intubated via direct laryngoscopy with a 7 oh ET tube. Following intubation patient developed tachycardia and hypoxia. These resolved with aggressive ventilation. She also had transient hypotension and was briefly placed on the low-dose dopamine drip which was able to wean to off. Presentation is highly concerning for pulmonary embolism. Patient's labs reveal negative Covid PCR. A white blood cell count of 18, hematocrit 51 platelets 214. D-dimer greater than 7500. Lactic acid 7.6. BUN 65, creatinine 2.1. Patient also seen in consultation by Dr. Jean-Baptiste who agrees with presumptive diagnosis of pulmonary embolism and plan to initiate heparin. She also discussed the case with Dr. Loredo from the hospitalist team and they both request proceeding with CT angiogram of the chest despite the risks to her already compromised kidneys. CT of the head without acute intracranial findings. CT of the chest reveals bilateral pulmonary emboli. There is evidence of right heart strain with right greater than left ventricular size. Dr. Jean-Baptiste at the bedside to place central line. Both [facility] and [facility] are unavailable to accept patient in transfer. Given the severity of her presentation, collapse at home and circulatory distress, she will merit administration of thrombolytics. We will place central line prior to doing this. Additionally, there is evidence of evolving left sided ischemic stroke. Case discussed by Dr. Jean-Baptiste and Dr. Peter and the risk/benefit weighs in favor of proceeding with thrombolysis. I also discussed the case with the patient's daughter Carley Katz. She states her mother would not want prolonged life support but would wish to be a full code. I consented Carley for the use of thrombolytics including the risk of bleeding, stroke, . She agrees with this course of treatment despite its attendant risks. Left IJ central line placed by Dr. Jean-Baptiste. Patient severity of illness makes her difficult for management at this institution. I will sign the patient out to Dr. Parisi pending further possible transfer. Patient's daughter is to refer the patient's current status to her the patient's Robb. Patient's daughter Carley is available at [phone]. I specifically discussed with her that the patient is critically ill and may tonight. <Luly Parisi, DO - Last Filed: 04/24/21 10:04> 1500 --please see Dr. Madrigal's note for initial presentation, exam and plan. Case endorsed to continue to monitor patient while planning to transfer to facility with ICU bed availability. Unable to accept here due to her critical status. 1641--no capacity at [facility] 1643--no capacity at [facility] 1646--no capacity at [facility] 1648--no capacity at [facility]. 1650--no capacity at [facility] and [facility]. 1700--no capacity at [facility]. 1709--no capacity at [facility]. 1716--no capacity at [place]. 1719--no capacity at [facility]. 1723--no capacity at [facility]. 1731--no capacity at [facility]. 1732--no capacity at [facility]. 1735--still no capacity at [facility] but they will talk to medical clerical assistant. 1743--no capacity at [facility]. 1747--no capacity at [facility] --spoke to stroke team with consideration of possible thrombectomy. They are recommending CTA head and neck which we cannot do due to patient's recent IV load dye with CT chest 2 hours ago. They initially were recommending a CT head without contrast to rule out evolving stroke but states she is too critical for transfer and they cannot accept her at this time. 1824--patient remains hypotensive, 80s/60s. She is on 3 pressors, vasopressin, norepinephrine drip. She has been Shah for the blood as well as a but remains stabilized. She is unresponsive and not on any sedation. 183--no capacity at [facility]. 1899--patient remains hypotensive, does not appear to be responding to 3 pressors at this time. Oxygen saturation also downtrending to low 80s on 100% FiO2. Will call family regarding futility of care. patient's guardian Jose Cotton is now present and states he has been her and her Robb's guardian for years. He feels that if patient is not not responding, to withdraw care. Returning home for guardianship paperwork. 1999--patient's guardian Jose Cotton returned home and was able to present his paperwork showing proof of his guardianship since May 2013. This will be scanned into patient's chart. Her Robb is also at bedside now. He understands patient's critical status and that she is not responding and agrees with plan to withdraw care at this time. Case also discussed with patient's daughter Carley over the phone and she is agreeable with plan to withdraw care. Electric Stop Installer called to bedside. 2029 -- Nursing removed all tubes and lines. Pt noted to have agonal breathing and bradycardic then apneic and no cardiac sounds with stethoscope. Bedside US confirmed no cardiac wall motion activity. Time of 2031. Medical Records Medical records reviewed: Yes I reviewed the patient's medical records. Imaging Data Radiologic Study: Radiologist's impression: CT HEAD WO CLINICAL HISTORY: collapse, unresponsive. TECHNIQUE: Imaging Protocol: Axial computed tomography images with coronal and sagittal reformatted images were created and reviewed COMPARISON: CT HEAD WITHOUT CONTRAST from 10/07/2013 CT HEAD WITHOUT CONTRAST from 10/07/2013 FINDINGS: Ventricles and Extra axial spaces: Normal in size and morphology for the patient's age. The left MCA appears hyperdense relative to the basilar artery in the contralateral MCA suspicious for the hyperdense MCA sign and thrombus. Hemorrhage: None. Cerebral parenchyma: Normal. Midline shift: None. Brainstem/Cerebellum: Normal. Calvarium: Normal. Visualized Paranasal sinuses/Mastoids: Clear. Soft Tissues: Unremarkable. IMPRESSION: 1. Hyperdense left MCA suspicious for hyperdense MCA sign in thrombus. 2. No acute intracranial hemorrhage. 3. Results of this exam have been verbally communicated with provider. XR PORTABLE CHEST AP POST TUBE CLINICAL HISTORY: s/p intubation TECHNIQUE: 2D digital imaging was performed of the chest. One image was obtained. An AP view was obtained. COMPARISON: No exams were available for comparison FINDINGS: MEDIASTINUM: Normal. HEART: Normal. PULMONARY VASCULATURE: Normal. LUNGS: Clear. PLEURAL SPACE: No pleural effusion or pneumothorax. BONE:Within normal limits for the patient's age. OTHER FINDINGS:The tip of the endotracheal tube is in good position 4.6 cm above the juan. The nasogastric tube passes into the stomach. IMPRESSION: 1. No acute pulmonary findings. 2. Endotracheal nasogastric tubes are in good position. CT CHEST PE CTA CLINICAL HISTORY: unresponsive, elev ddimer, arf. TECHNIQUE: Imaging Protocol: Axial CT angiography was performed with multi-slice acquisition and multi-planar and/or 3D reconstructions. CONTRAST MATERIAL: Intravenous: Omnipaque 350 Contrast volume:100 mL Contrast was administered after consultation with the patient's primary care team. COMPARISON: CT CT ABDOMEN PELVIS W from 11/17/2020 FINDINGS: Tracheobronchial tree: Patent where visualized. There is an endotracheal tube in good position 4 cm above the juan. Pulmonary parenchyma: There are few scattered ground-glass opacities in the right upper lobe and the left lower lobe. There is a small area of consolidation in the left lower lobe posteriorly. While pneumonia should be considered, pulmonary infarcts cannot be excluded. No architectural distortion. Pulmonary Arteries: There are pulmonary artery emboli in all lobes of the lung. There is no evidence of a saddle embolus at the branches of the right and left main pulmonary arteries. The right ventricles enlarged relative to the left ventricle consistent with right heart strain. Mediastinum and Brittany: No dominant adenopathy or fluid collection. There is a nasogastric tube. The tip is in good position in the stomach. Visualized thyroid gland: Unremarkable. Pleura: No effusion or pneumothorax. Heart: The heart is not dilated. No coronary artery calcifications are seen. No pericardial effusion. Findings consistent with right heart strain. Aorta: Thoracic aorta non-dilated. No evidence of dissection. Upper abdomen: Status post cholecystectomy. There is a stable right adrenal mass. Soft tissues: Unremarkable. Bones: Within normal limits for the patient's age. IMPRESSION: 1. Extensive pulmonary artery embolic disease with evidence of right heart strain. 2. Pulmonary infiltrates. This may represent infectious or inflammatory process however pulmonary infarct cannot be excluded. 3. Results of this exam have been verbally communicated with provider. XR PORTABLE CHEST AP POST LINE CLINICAL HISTORY: s/p central line. TECHNIQUE: 2D digital imaging was performed. COMPARISON: Chest x-ray earlier same date FINDINGS: Patient remains intubated. Distal tip of the endotracheal tube is in satisfactory position above the juan. There is an NG tube again noted. Distal tip of the newly placed left supra clavi in central line is in the right atrium. Chest leads in place. Heart size unchanged.. The mediastinum is not widened. Lungs are clear. No infiltrates nor obvious pleural effusions. There is no pneumothorax. IMPRESSION: No acute pulmonary findings on this single AP portable view of the chest.New left IJ line with distal tip in the upper right atrium. No pneumothorax. Lab Data Lab results reviewed: Yes I reviewed the patient's lab results. Labs: Laboratory Tests Range/Units 04/21/21 04/21/21 04/21/21 12:30 12:48 12:55 WBC (4.4-10.8) 10^3/uL RBC (3.93-5.22) 10^6/uL Hgb (11.2-15.7) g/dL Hct (36.0-46.0) % MCV (80-95) fL MCH (27.0-33.0) pg MCHC (32.0-36.0) % RDW (11.7-14.6) % Plt Count (130-400) 10^3/uL MPV (8.0-11.0) fL Immature Gran % Neutrophils % Lymphocytes % Monocytes % Eosinophils % Basophils % Nucleated RBC % % Absolute Neutrophils (1.2-6.7) 10^3/uL Absolute Lymphocytes (1.2-3.4) 10^3/uL Absolute Monocytes (0.1-0.8) 10^3/uL Absolute Eosinophils (0.0-0.7) 10^3/uL Absolute Basophils (0.0-0.2) 10^3/uL APTT (21.0-27.5) sec 23.2 D-Dimer (<500) ng/mlFEU > 7500 H ABG Sample Site Cancelled ABG pH Cancelled ABG pCO2 Cancelled ABG pO2 Cancelled ABG HCO3 Cancelled ABG Total CO2 Cancelled ABG O2 Saturation Cancelled ABG Base Excess Cancelled VBG pH VBG pCO2 VBG pO2 VBG HCO3 VBG Total CO2 VBG O2 Saturation VBG Base Excess VBG Lactate (0.9-1.7) mmol/L Oxygen Liter Flow Cancelled FiO2 Cancelled Sodium (136-145) mmol/L 141 Potassium (3.5-5.1) mmol/L 5.6 H Chloride (98-107) mmol/L 104 Carbon Dioxide (21.0-32.0) mmol/L 22.7 Anion Gap (3-11) mmol/L 14.3 H BUN (7-18) mg/dL 65 H Creatinine (0.55-1.02) mg/dL 2.1 H Estimated GFR/1.73 m2 (mL/min/1.73m2) 23.71 Glucose (74-106) mg/dL 314 H Calcium (8.5-10.1) mg/dL 11.6 H Magnesium (1.8-2.4) mg/dL 3.2 H Total Bilirubin (0.2-1.0) mg/dL 0.6 AST (15-37) U/L 29 ALT (14-59) U/L 28 Alkaline Phosphatase (46-116) U/L 111 Ammonia (11-32) umol/L Troponin I (<0.06) ng/mL 0.07 H Total Protein (6.4-8.2) g/dL 7.6 Albumin (3.4-5.0) g/dL 2.9 L TSH (0.36-3.74) uIU/mL 2.29 Urine Color Urine Clarity Urine pH Ur Specific Onyx Urine Protein Urine Ketones Urine Blood Urine Nitrite Urine Bilirubin Urine Urobilinogen Ur Leukocyte Esterase Urine Glucose Ethyl Alcohol (<10) mg/dL 3.3 COVID-19 Source SARS-CoV-2 (PCR) (Negative) Range/Units 04/21/21 04/21/21 04/21/21 12:55 12:55 12:55 WBC (4.4-10.8) 10^3/uL 18.43 H RBC (3.93-5.22) 10^6/uL 4.96 Hgb (11.2-15.7) g/dL 14.6 Hct (36.0-46.0) % 51.0 H MCV (80-95) fL 102.8 H MCH (27.0-33.0) pg 29.4 MCHC (32.0-36.0) % 28.6 L RDW (11.7-14.6) % 13.7 Plt Count (130-400) 10^3/uL 214 MPV (8.0-11.0) fL 10.4 Immature Gran % 1.1 Neutrophils % 64.5 Lymphocytes % 26.5 Monocytes % 5.9 Eosinophils % 1.7 Basophils % 0.3 Nucleated RBC % % 0 Absolute Neutrophils (1.2-6.7) 10^3/uL 11.89 H Absolute Lymphocytes (1.2-3.4) 10^3/uL 4.88 H Absolute Monocytes (0.1-0.8) 10^3/uL 1.09 H Absolute Eosinophils (0.0-0.7) 10^3/uL 0.31 Absolute Basophils (0.0-0.2) 10^3/uL 0.06 APTT (21.0-27.5) sec D-Dimer (<500) ng/mlFEU ABG Sample Site ABG pH ABG pCO2 ABG pO2 ABG HCO3 ABG Total CO2 ABG O2 Saturation ABG Base Excess VBG pH VBG pCO2 VBG pO2 VBG HCO3 VBG Total CO2 VBG O2 Saturation VBG Base Excess VBG Lactate (0.9-1.7) mmol/L 7.6 H* Oxygen Liter Flow FiO2 Sodium (136-145) mmol/L Potassium (3.5-5.1) mmol/L Chloride (98-107) mmol/L Carbon Dioxide (21.0-32.0) mmol/L Anion Gap (3-11) mmol/L BUN (7-18) mg/dL Creatinine (0.55-1.02) mg/dL Estimated GFR/1.73 m2 (mL/min/1.73m2) Glucose (74-106) mg/dL Calcium (8.5-10.1) mg/dL Magnesium (1.8-2.4) mg/dL Total Bilirubin (0.2-1.0) mg/dL AST (15-37) U/L ALT (14-59) U/L Alkaline Phosphatase (46-116) U/L Ammonia (11-32) umol/L 10 L Troponin I (<0.06) ng/mL Total Protein (6.4-8.2) g/dL Albumin (3.4-5.0) g/dL TSH (0.36-3.74) uIU/mL Urine Color Urine Clarity Urine pH Ur Specific Onyx Urine Protein Urine Ketones Urine Blood Urine Nitrite Urine Bilirubin Urine Urobilinogen Ur Leukocyte Esterase Urine Glucose Ethyl Alcohol (<10) mg/dL COVID-19 Source SARS-CoV-2 (PCR) (Negative) Range/Units 04/21/21 04/21/21 04/21/21 12:55 13:30 13:55 WBC (4.4-10.8) 10^3/uL RBC (3.93-5.22) 10^6/uL Hgb (11.2-15.7) g/dL Hct (36.0-46.0) % MCV (80-95) fL MCH (27.0-33.0) pg MCHC (32.0-36.0) % RDW (11.7-14.6) % Plt Count (130-400) 10^3/uL MPV (8.0-11.0) fL Immature Gran % Neutrophils % Lymphocytes % Monocytes % Eosinophils % Basophils % Nucleated RBC % % Absolute Neutrophils (1.2-6.7) 10^3/uL Absolute Lymphocytes (1.2-3.4) 10^3/uL Absolute Monocytes (0.1-0.8) 10^3/uL Absolute Eosinophils (0.0-0.7) 10^3/uL Absolute Basophils (0.0-0.2) 10^3/uL APTT (21.0-27.5) sec D-Dimer (<500) ng/mlFEU ABG Sample Site ABG pH ABG pCO2 ABG pO2 ABG HCO3 ABG Total CO2 ABG O2 Saturation ABG Base Excess VBG pH Cancelled VBG pCO2 Cancelled VBG pO2 Cancelled VBG HCO3 Cancelled VBG Total CO2 Cancelled VBG O2 Saturation Cancelled VBG Base Excess Cancelled VBG Lactate (0.9-1.7) mmol/L Oxygen Liter Flow FiO2 Sodium (136-145) mmol/L Potassium (3.5-5.1) mmol/L Chloride (98-107) mmol/L Carbon Dioxide (21.0-32.0) mmol/L Anion Gap (3-11) mmol/L BUN (7-18) mg/dL Creatinine (0.55-1.02) mg/dL Estimated GFR/1.73 m2 (mL/min/1.73m2) Glucose (74-106) mg/dL Calcium (8.5-10.1) mg/dL Magnesium (1.8-2.4) mg/dL Total Bilirubin (0.2-1.0) mg/dL AST (15-37) U/L ALT (14-59) U/L Alkaline Phosphatase (46-116) U/L Ammonia (11-32) umol/L Troponin I (<0.06) ng/mL Total Protein (6.4-8.2) g/dL Albumin (3.4-5.0) g/dL TSH (0.36-3.74) uIU/mL Urine Color Cancelled Urine Clarity Cancelled Urine pH Cancelled Ur Specific Onyx Cancelled Urine Protein Cancelled Urine Ketones Cancelled Urine Blood Cancelled Urine Nitrite Cancelled Urine Bilirubin Cancelled Urine Urobilinogen Cancelled Ur Leukocyte Esterase Cancelled Urine Glucose Cancelled Ethyl Alcohol (<10) mg/dL COVID-19 Source Nasal/Nares SARS-CoV-2 (PCR) (Negative) Negative ECG Data Attestation: I personally reviewed and interpreted this ECG (s) as follows: Interpretation: #1 -- rate of 78, sinus, RBBB, QRS 134, no stemi. #2 -- rate of 137, sinus, RBBB, QRS 154, no stemi. HPI <Gianluca Madrigal MD - Last Filed: 04/23/21 07:41> General Mode of arrival: EMS. Date/Time Provider Initiated Documentation: 04/21/21 13:21. Limitations to Documentation: altered mental status. Information obtained by: EMS. History of Present Illness 65 year old F presents to the emergency department with the chief complaint of Sudden collapse at home, described as severe, Patient started experiencing this minute(s) Related Data Home Medications Medication Instructions Recorded Confirmed colchicine 0.6 mg PO BID 12/28/20 04/08/21 lisinopril 10 mg PO DAILY 14 Days #14 tab 04/08/21 Previous Rx's Medication Instructions Recorded lisinopril 10 mg PO DAILY 14 Days #14 tab 04/08/21 Allergies Allergy/AdvReac Type Severity Reaction Status Date / Time quetiapine fumarate Allergy Intermediate Unverified 04/08/21 11:31 [From Seroquel] nabumetone [Nabumetone] Allergy Unknown SKIN RASH Unverified 04/08/21 11:31 celecoxib [From Celebrex] AdvReac Unknown PANIC Unverified 04/08/21 11:31 ATTACKS trazodone AdvReac Unknown PANIC Unverified 04/08/21 11:31 ATTACKS, RUBBERY LEGS, HALLUCINATIONS General Stated Complaint: AMS/LOC LOBITO: 1 Review of Systems <Gianluca Madrigal MD - Last Filed: 04/23/21 07:41> Unobtainable due to endotracheal tube PFSH <Gianluca Madrigal MD - Last Filed: 04/23/21 07:41> Medical History (Updated 04/21/21 @ 20:08 by Luly Parisi DO) Essential hypertension Gout Morbid obesity Surgical History Cholecystectomy (10/22/13) Gallstone pancreatitis Colonoscopy - MAC (02/28/14) cystourethroscopy (01/24/13) Dr Carranza-for R ureteral calculus R ureteral stent placed Left extracorporeal shockwave lithotripsy for left renal calculus, 11/15/12 Social History Smoking/Tobacco Use Status: Never Smoking risk assessment performed?: Yes Alcohol Intake: never Drug use: Never Substance use type: does not use Do you feel safe at home: Yes Do you feel safe in your relationship?: Yes Exam <Gianluca Madrigal MD - Last Filed: 04/23/21 07:41> Narrative Exam Narrative: GEN: Unresponsive, no gag reflex, uin-oqzbu-vary in process HEAD: Normocephalic, atraumatic ENT: Mucous membranes dry, External ear exam unremarkable EYES: PERRL NECK: No asymmetry CHEST/RESP: With bagging, clear to auscultation bilateral, no wheeze/rhonchi/rales CARDIOVASCULAR: Regular and tachycardic, no murmur, rub gavin. 2+ Rad pulse bilateral ABDOMEN: Soft, obese, no mass. +Bowel sounds EXT: no rash, left proximal tibia with puncture wound consistent with I/O placement and removal. Ecchymosis present on upper buttocks Neuro: Unresponsive, no gag reflex, does not respond to painful stimuli Psych: Unable to assess Course <Gianluca Madrigal MD - Last Filed: 04/23/21 07:41> Vital Signs Vital signs: Vital Signs Pulse 79 04/21/21 12:27 Respiratory Rate 24 04/21/21 12:27 Blood Pressure 113/54 L 04/21/21 12:27 Pulse Oximetry 98 04/21/21 12:27 Pulse 79 04/21/21 12:27 Respiratory Rate 13 04/21/21 12:38 Respiratory Effort 04/21/21 12:38 Respiratory Pattern Apnea 04/21/21 12:38 Blood Pressure 113/54 L 04/21/21 12:27 Blood Pressure Position Supine 04/21/21 12:27 Pulse Oximetry 98 04/21/21 12:27 Oxygen Delivery Method Ambu-Bag 04/21/21 12:27 Pain Level 0 04/21/21 12:27 Procedures <Gianluca Madrigal MD - Last Filed: 04/23/21 07:41> Intubation Time out performed: Yes sedative: Etomidate Mg Given: 10 paralytic: Succinylcholine Mg Given: 100 Laryngoscope: Kwabena ET Tube Size: 7 ET Tube Uncuffed: No Tube Secured Depth (cm): 22 Tube Secured Location: teeth Tube Placement Confirmation: visualized tube passing through cords and equal breath sounds bilaterally Critical Care Time <Gianluca Madrigal MD - Last Filed: 04/23/21 07:41> Critical Care Time Critical Care Time: Yes Total Critical Care Time: 90 Attestation: bedside management, discussion with family and consultants, thrombolysis decision making, note this is exclusive of procedure time. <Luly Parisi DO - Last Filed: 04/24/21 10:04> Critical Care Time Critical Care Time: Yes Total Critical Care Time: 240 Attestation: I spent 240 minutes of critical care time with this patient. This does not include time spent on separately reported billable procedures. Sign Out <Gianluca Madrigal MD - Last Filed: 04/23/21 07:41> Sign Out Data: Sign Out Comment: Bilateral PE with heart strain, intubated, unable to accept @ [facility] or [facility] [place] Last updated by Gianluca Madrigal MD at 04/21/21 16:31
[2021-04-21 13:09] LABS: Lactate 7.6 mmol/L (0.9-1.7)
[2021-04-21 13:12] LABS: Ammonia 10 umol/L (11-32)
--- NOTE | 2021-04-21 13:27 | DI.RAD_ITS ---
Exam(s) XR PORTABLE CHEST AP POST LINE EXAM: XR PORTABLE CHEST AP POST LINE CLINICAL HISTORY: s/p intubation TECHNIQUE: 2D digital imaging was performed of the chest. One image was obtained. An AP view was ob tained. COMPARISON: No exams were available for comparison FINDINGS: MEDIASTINUM: Normal. HEART: Normal. PULMONARY VASCULATURE: Normal. LUNGS: Clear. PLEURAL SPACE: No pleural effusion or pneumothorax. BONE:Within normal limits for the patient's age. OTHER FINDINGS:The tip of the endotracheal tube is in good position 4.6 cm above the juan. The taylor ogastric tube passes into the stomach. IMPRESSION: 1. No acute pulmonary findings. 2. Endotracheal nasogastric tubes are in good position. DATA REPOSITORY: RADIATION DOSE DELIVERED:
[2021-04-21 13:30] LABS: ALT 28 U/L (14-59); AST 29 U/L (15-37); Albumin 2.9 g/dL (3.4-5.0); Alkaline Phosphatase 111 U/L (46-116); Anion Gap 14.3 mmol/L (3-11); BUN 65 mg/dL (7-18); Bilirubin, Total 0.6 mg/dL (0.2-1.0); CO2 22.7 mmol/L (21.0-32.0); CREATININE 2.1 mg/dL (0.55-1.02); Chloride 104 mmol/L (98-107); ETHANOL BLOOD 3.3 mg/dL (<10); Estimated GFR 23.71 (mL/min/1.73m2); Glucose 314 mg/dL (74-106); Magnesium 3.2 mg/dL (1.8-2.4); Potassium 5.6 mmol/L (3.5-5.1); Sodium 141 mmol/L (136-145); TSH (W/Ref FT4) 2.29 uIU/mL (0.36-3.74); Total Protein 7.6 g/dL (6.4-8.2)
--- NOTE | 2021-04-21 13:31 | NUR.NOTE ---
Nursing Note: Per Dr. Madrigal, give 2 mg Versed bolus then run Versed drip @ 2 mg/hr.
[2021-04-21 13:32] LABS: Calcium 11.6 mg/dL (8.5-10.1); Troponin I 0.07 ng/mL (<0.06)
[2021-04-21 13:35] LABS: Source Nasal/Nares
[2021-04-21] MEDS: MIDAZOLAM 50 MG in Normal Saline 90 ML IV (13:45)
[2021-04-21] MEDS: Midazolam 2 MG/2 ML VIAL IVP (13:55)
[2021-04-21 14:00] LABS: PTT Activated 23.2 sec (21.0-27.5)
[2021-04-21 14:20] LABS: D-Dimer > 7500 ng/mlFEU (<500)
[2021-04-21 14:27] LABS: COVID-19 PCR Negative (Negative)
[2021-04-21] MEDS: fentaNYL 100 MCG/2 ML VIAL IVP (14:53)
[2021-04-21] MEDS: methylPREDNISolone SUCC 125 MG VIAL (14:57)
[2021-04-21] MEDS: Vecuronium 10 MG VIAL IVP (15:18)
[2021-04-21] MEDS: Omnipaque 350 MG/ML 100 ML BTL IJ (15:37)
[2021-04-21] MEDS: Normal Saline - Diluent 50 ML VIAL IV (15:37)
--- NOTE | 2021-04-21 15:38 | DI.CT_ITS ---
Exam(s) CT CHEST PE CTA EXAM: CT CHEST PE CTA CLINICAL HISTORY: unresponsive, elev ddimer, arf. TECHNIQUE: Imaging Protocol: Axial CT angiography was performed with multi-slice acquisition and mu lti-planar and/or 3D reconstructions. CONTRAST MATERIAL: Intravenous: Omnipaque 350 Contrast volume:100 mL Contrast was administered after consultation with the patient's primary care team. COMPARISON: CT CT ABDOMEN PELVIS W from 11/17/2020 FINDINGS: Tracheobronchial tree: Patent where visualized. There is an endotracheal tube in good position 4 cm a chelsea the juan. Pulmonary parenchyma: There are few scattered ground-glass opacities in the right upper lobe and the left lower lobe. There is a small area of consolidation in the left lower lobe posteriorly. While p neumonia should be considered, pulmonary infarcts cannot be excluded. No architectural distortion. Pulmonary Arteries: There are pulmonary artery emboli in all lobes of the lung. There is no evidence of a saddle embolus at the branches of the right and left main pulmonary arteries. The right ventri cles enlarged relative to the left ventricle consistent with right heart strain. Mediastinum and Brittany: No dominant adenopathy or fluid collection. There is a nasogastric tube. The t ip is in good position in the stomach. Visualized thyroid gland: Unremarkable. Pleura: No effusion or pneumothorax. Heart: The heart is not dilated. No coronary artery calcifications are seen. No pericardial effusion. Findings consistent with right heart strain. Aorta: Thoracic aorta non-dilated. No evidence of dissection. Upper abdomen: Status post cholecystectomy. There is a stable right adrenal mass. Soft tissues: Unremarkable. Bones: Within normal limits for the patient's age. IMPRESSION: 1. Extensive pulmonary artery embolic disease with evidence of right heart strain. 2. Pulmonary infiltrates. This may represent infectious or inflammatory process however pulmonary in farct cannot be excluded. 3. Results of this exam have been verbally communicated with provider. RADIATION DOSE DELIVERED: 593.91mGy.cm Total DLP DATA REPOSITORY: All CT scans at this facility are submitted to the National Radiology Data Registry (NRDR) Dose Index Registry (DIR) with the [employer] (A[employer]). RADIATION OPTIMIZATION: All CT scans at this facility use at least one of these dose optimization te chniques: automated exposure control; mA and/or kV adjustment per patient size (includes targeted exa ms where dose is matched to clinical indication); or iterative reconstruction.
--- NOTE | 2021-04-21 16:15 | DI.RAD_ITS ---
Exam(s) XR PORTABLE CHEST AP EXAM: XR PORTABLE CHEST AP CLINICAL HISTORY: s/p central line. TECHNIQUE: 2D digital imaging was performed. COMPARISON: Chest x-ray earlier same date FINDINGS: Patient remains intubated. Distal tip of the endotracheal tube is in satisfactory position above the juan. There is an NG tube again noted. Distal tip of the newly placed left supra clavi in centra l line is in the right atrium. Chest leads in place. Heart size unchanged.. The mediastinum is not widened. Lungs are clear. No infiltrates nor obvious pleural effusions. There is no pneumothorax. IMPRESSION: No acute pulmonary findings on this single AP portable view of the chest.New left IJ line with distal tip in the upper right atrium. No pneumothorax. DATA REPOSITORY: RADIATION DOSE DELIVERED: All CT scans at this facility use at least one of these dose optimization techniques: automated exposure control; mA and/or kV adjustment per patient size (includes targeted e xams where dose is matched to clinical indication); or iterative reconstruction.
[2021-04-21] MEDS: EPINEPHrine 1 MG/10 ML SYR (16:23)
[2021-04-21] MEDS: Vasopressin 20 UNITS/ML VIAL ×2 (16:40)
--- NOTE | 2021-04-21 17:10 | DI.VRAD_ITS ---
PROCEDURE INFORMATION: Exam: XR Chest Exam date and time: 04/21/2021 4:20 PM Age: 65 years old Clinical indication: Other: S/P central line TECHNIQUE: Imaging protocol: XR of the chest. Views: 1 view. COMPARISON: CR XR PORTABLE CHEST AP POST LINE 04/21/2021 1:09 PM FINDINGS: Tubes, catheters and devices: Again noted is a nasogastric tube which extends at least to the gastric fundus, but its most inferior aspect is off the radiographic field of view. Again noted is an endotracheal tube with its tip now residing 3.9 cm superior to the juan. There is a new left IJ central line with its tip projecting at the superior cavoatrial junction. Lungs: The lungs are clear. There is no pulmonary vascular congestion. Pleural spaces: There is no evidence of pneumothorax. There are no pleural effusions present. Heart/Mediastinum: Heart size is likely near the upper limits of normal, as on prior study. Bones/joints: Unremarkable. IMPRESSION: 1. New left IJ line with tip projecting at the superior cavoatrial junction. No evidence of pneumothorax. 2. No acute pulmonary findings. Dictated and Authenticated by: Leonardo Harry MD. Ordering:ADELSO Hough MD
[2021-04-21] MEDS: DEXTROSE 5%-WATER 250 ML (17:56)
--- NOTE | 2021-04-21 17:59 | NUR.NOTE ---
Pt arrived via EMS at 1227. EMS bagging pt on arrival. Pt moved to ER stretcher and VS obtained: HR 80 BP 113/54 SSpo2 94% BVM RR 28 18g IV placed in R AC. MD Madrigal VO to intubate. Verbal order 100 succs, 10 etomidate. Succ pushed at 1234, etomidate at 1234. Pt intubated at 1236 with a 7.0 tube, 22 at the lip, OG tube at 65 at lip. Propofol infusion initiated at 1240. See MAR for titration and medication administration. CXR obtained for placement. Pt had a run of SVT at 1245. Due to hypotension pt started on dopamine at 1300. Versed gtt initated at 1350. 16f hickman placed for output monitoring. MD Nielson in to evaluate pt. Per MD Nielson, dopamine stopped at 1458. Versed stopped at 1607. In order to get pt to CT 100mg IV fentanyl administered at 1453 per MD Nielson. Solumedrol ordered per Nisreen and administered at 1457. Pt required vec at 1518 to ensure best imaging. Pt taken to CT for scanning. Nisreen in to place a central line for hypotension. Left IJ placed at 1642. Xray verification. VO for epi 0.3 IVP. Pt then placed on epi gtt started. Vasopressin ordered and initiated at for hypotension. Continuing to monitor pt 1:1. Nursing Note:
--- NOTE | 2021-04-21 18:41 | W.PULMCC ---
General Date of Service Date of service: 04/21/21 Time of Service: 14:30 Reason for Admission to ICU: Hypoxic respiratory failure, AMS, hypotension Assessment and Plan Assessment and plan (1) Morbid obesity: Status: Chronic (2) Acute massive pulmonary embolism: Status: Acute (3) Anoxia of brain: Status: Acute (4) Acute CVA (cerebrovascular accident): Status: Acute (5) DVT (deep venous thrombosis): Status: Chronic Qualifiers: DVT location: lower extremity Affected thrombotic vein of extremity: popliteal Chronicity: acute Laterality: right Qualified Code(s): I82.431 - Acute embolism and thrombosis of right popliteal vein (6) Acute renal failure: Status: Acute Qualifiers: Acute renal failure type: unspecified Qualified Code(s): N17.9 - Acute kidney failure, unspecified (7) Lactic acidosis: Status: Acute (8) Obstructive cardiovascular shock: Status: Acute (9) Respiratory failure with hypoxia and hypercapnia: Status: Acute Qualifiers: Chronicity: acute Qualified Code(s): J96.01 - Acute respiratory failure with hypoxia; J96.02 - Acute respiratory failure with hypercapnia (10) Right ventricular dysfunction: Status: Acute Assessment and plan: This is an unfortunate 65 yo woman with massive PE in severe obstructive shock and respiratory failure and large left MCA CVA. She is extremely hemodynamically unstable and may very well this evening. She has been given tPA for her PE. She will be placed on a heparin protocol without an initial bolus after the tPA is completed the infusion. She is in multiorgan failure with a low likelihood of survival. Her family has been notified and her is en route. Family is aware of her grim prognosis and aware that she may pass this evening. Recommendations Pulmonary: Hypoxic and hypercapnic respiratory failure - mechanical ventilation - recommend volume assist control - likely will require high PEEP - monitor plataeu pressures - if over 30 will need to decrease PEEP or switch to a pressure control mode. - monitor end tidal CO2 - adequate sedation to promote ventilator synchrony - this may need to include paralytics if sedation is not sufficient Cardiac: Obstructive shock 2/2 massive PE and RV failure - on max Levophed, vasopressin, adding epinehrine gtt - s/p IV 125 methylpred - recommend starting stress dose steroids - hydrocortisone 50mg q6hr - no further fluids required - if she is on maximal infusion rates of levophed, vasopressin and epinephrine further intervention is likely to be medically futile Renal: Acute Renal Failure - has Shah in - monitor I/O - can consider bicarb pushes to improve acidosis - lytes bid - may require CRRT - monitor labs - would need transfer to tertiary care, we do not have CRRT capabilities Lactic acidosis - unlikely to significantly improve without any UOP - again recommend bicarb pushes to correct any acidosis I&O: Intake & Output 04/18/21 04/19/21 04/20/21 04/21/21 23:59 23:59 23:59 23:59 Intake Total 152.339 / 152.339 Balance 152.339 / 152.339 Weight 112 kg Daily Fluid Goal:: even GI Nutrition: NPO Infectious Disease: No clear infection - would still recommend an empiric dose of cefepime given her degree of illness Hematologic: Massive PE and DVT - s/p tPA - start heparin gtt after tPA infusion finished without a bolus - in the case of massive hemorrhage do not recommend TXA as this will most certainly cause more clot - if there is significant hemoptysis can consider nebulized TXA as very little will be absorbed systemically - very grim prognosis - recommend continuing family discussions - if able would recommend tertiary care center transfer - recommend formal echo and 4 extremity DVT studies Neurologic: Left MCA CVA - large area - received tPA for PE - will need q1hr neuro checks - brain MRI if survives PE Brain anoxia - no sign on CT of anoxic brain injury, although this is unlikely to be seen so acutely - if survives PE would recommend MRI in future Endocrine: Hyperglycemia - SSI to cover - q6hr fingersticks Lines: LIJ CVC Prophylaxis: will be on heparin gtt after tPA recommend GI ppx with either H2 eamon or PPI Code Status: Full Code Subjective Critical and life-threatening events over the past 24 hours: This is a 65 yo woman with hypertension and morbid obesity who presents in critical condition found to have bilateral PE, DVT resulting in hemodynamic collapse from obstructive shock and severe hypoxic respiratory failure. She was seen a couple weeks ago in the ED for foot pain that was thought to be gout. She reportedly did not leave the couch for the following 2 weeks. She called EMS for persistent foot pain and upon standing, immediately collapsed and was unresponsive. In the ED she was intubated and placed on dopamine. She was initially on propofol but her blood pressures made this a challenge. She was placed on Versed infusion. I was called by RT due to difficulty with bagging. On my arrival she was dyssynchronous with the vent, on 100% O2 and a PEEP of 10. It was clear her dyssynchrony was a sedation issue. I switched her pressor from dopamine to levophed and d/c'ed the versed drip and increased her propofol. I also gave 100mcg of fentanyl. I completed a bedside POCUS that found a blown RV, likely Lara's sign, a plump and non collapsible IVC as well as a right sided popliteal DVT. I requested she have her head CT completed and despite her renal failure to have the CTPE performed as given her picture she would need lytics. To facilitate I the CT scan I gave her 10mg of vecuronium. I returned after seeing another patient and found the CTPE to be positive with B/L PE as well as evidence of RV strain on CT. The head CT was also concerning for a left sided CVA with no sign of hemorrhage and possibly some edema. I had neurology look at the scan which she agreed this could be consistent with stroke and would proceed with tPA for the PE. Prior to tPA I placed a left triple lumen. I attempted to place a right axillary arterial line due to inconsistent cuff BP's and was able to access the axillary artery but unfortunately had issues with threading the wire. After 2 attempts I aborted as I did not want to delay tPA infusion. During placement of the central line the patient continued to worsen and required an epi push of 0.3mcg to maintain any blood pressure. Vasopressin was added and ultimately epinephrine infusion was added as well. There are no beds available at any tertiary center so she may need to be cared for at [facility]. Exam Narrative Exam Narrative: POCUS 04/21/21: All views adequately visualized, although somewhat limited by body habitus. RV is enlarged and has reduced function. D sign on parasternal short. There is likely a Lara's sign. LV appears to be functioning well. No pericardial effusion. IVC plump with no collapsibility, hepatic vein very enlarged. I also perform a right LE DVT study. No right femoral DVT. Non compressible popliteal vein on right, after this finding, I did not continue with the other side. Const Nutritional Appearance: obese [facility] Head: normocephalic Ears: external ears normal and no periauricular adenopathy General nose exam: nasal mucous membranes and turbinates normal Mouth: oropharynx normal and moist mucous membranes Eyes General: appearance normal, both eyes and all related structures Pupils: PERRL Neck Neck: normal visual inspection and JVD Chest Chest: normal inspection of the chest and other (scar, bilateral breasts near areola) Resp Effort & Inspection: normal respiratory effort Auscultation: clear to auscultation bilaterally, diminished lung sounds, no rales, no rhonchi and no wheezes Cardio Rate: regular rate Rhythm: regular rhythm Heart Sounds: S1 normal, S2 normal and no murmurs Pulses: radial pulses present bilaterally GI Inspection: normal to inspection Palpation: soft Skin General skin exam: no rashes or lesions noted and other (Skin covered in dirt) Neuro General: patient obtunded Extrem General: no clubbing, cyanosis or edema, cyanosis of the fingers and of the toes and other (mottling, cold extremities) Psych Mental Status: mental status grossly normal Affect: normal affect Attitude: cooperative Most Recent VS/Results Last Vital Signs Pulse 91 H 04/21/21 17:31 Resp 15 04/21/21 17:31 BP 149/15 H 04/21/21 17:31 Pulse Ox 99 04/21/21 16:22 Laboratory Results - last 24 hr 04/21/21 04/21/21 04/21/21 12:30 12:55 12:55 WBC RBC Hgb Hct MCV MCH MCHC RDW Plt Count MPV Immature Gran % Neutrophils % Lymphocytes % Monocytes % Eosinophils % Basophils % Nucleated RBC % Absolute Neutrophils Absolute Lymphocytes Absolute Monocytes Absolute Eosinophils Absolute Basophils APTT 23.2 D-Dimer > 7500 H VBG Lactate Sodium 141 Potassium 5.6 H Chloride 104 Carbon Dioxide 22.7 Anion Gap 14.3 H BUN 65 H Creatinine 2.1 H Estimated GFR/1.73 m2 23.71 Glucose 314 H Calcium 11.6 H Magnesium 3.2 H Total Bilirubin 0.6 AST 29 ALT 28 Alkaline Phosphatase 111 Ammonia 10 L Troponin I 0.07 H Total Protein 7.6 Albumin 2.9 L TSH 2.29 Ethyl Alcohol 3.3 COVID-19 Source SARS-CoV-2 (PCR) 04/21/21 04/21/21 04/21/21 12:55 12:55 13:30 WBC 18.43 H RBC 4.96 Hgb 14.6 Hct 51.0 H MCV 102.8 H MCH 29.4 MCHC 28.6 L RDW 13.7 Plt Count 214 MPV 10.4 Immature Gran % 1.1 Neutrophils % 64.5 Lymphocytes % 26.5 Monocytes % 5.9 Eosinophils % 1.7 Basophils % 0.3 Nucleated RBC % 0 Absolute Neutrophils 11.89 H Absolute Lymphocytes 4.88 H Absolute Monocytes 1.09 H Absolute Eosinophils 0.31 Absolute Basophils 0.06 APTT D-Dimer VBG Lactate 7.6 H* Sodium Potassium Chloride Carbon Dioxide Anion Gap BUN Creatinine Estimated GFR/1.73 m2 Glucose Calcium Magnesium Total Bilirubin AST ALT Alkaline Phosphatase Ammonia Troponin I Total Protein Albumin TSH Ethyl Alcohol COVID-19 Source Nasal/Nares SARS-CoV-2 (PCR) Negative Review of Systems Unobtainable due to endotracheal tube and Unobtainable due to mental status Time spent with patient Time spent in Critical Care: 150 Time spent in Critical care included: Performing procedures not included in c.c time, Coordination of care, Chart review, Documenting critically ill care, Time at immediate bedside and Discussing critically ill care with other medical staff
--- NOTE | 2021-04-21 19:47 | NUR.NOTE ---
Pt has remained 1:1 or 2:1 going on 8hrs. Family in at bedside. Awaiting new orders. Nursing Note:
--- NOTE | 2021-04-21 20:01 | W.PM.OP ---
Date of service: 04/21/21 Time of Service: 16:00 Operative Note Operative Note Central Line Placement Indication: Need for pressors Line Priority: Emergent Tip Confirmation: Chest X-ray Consent Obtained: No - emergent procedure, consent not obtained Central Catheter Type: Non-Tunneled Non-Tunneled Catheter: Standard Line Location: Left internal jugular Final tip location satisfactory? Yes Line Lumens (#): 3 Line External Length:20cm Line Securement Device: Sutured Catheter Secured At: 20cm Central Line Methods:Using usual sterile techniques the patient was prepped appropriately. A time out was performed to confirm proper patient, procedure and indications. Using a modified Seldinger technique the left internal jugular was accessed with ultrasounds guidance and the catheter was placed without complication. Number of Attempts:1 Number of Sites Attempted: 1 Number of Kits Used:1 Central Line Operators: Vivienne Steiner Number Of Operators: 1 First Acid Conditioner's Name: Vivienne Steiner MD Unless otherwise noted, there were no complications, no blood loss and no cultures obtained.
--- NOTE | 2021-04-21 20:05 | W.PM.OP ---
Date of service: 04/21/21 Time of Service: 14:30 Operative Note Operative Note Arterial Line Placement Date Performed:04/21/21 Time Performed: 1430 Performed by: Vivienne Steiner MD Indications and/or Provisional Diagnosis: Invasive hemodynamic monitoring Consent: No consent obtained, emergent situation Type of Anesthesia/Sedation: None, patient sedated due to medical condition Fluids Given: See I&O Unless otherwise noted, there was no blood loss, specimens removed, cultures obtained, or drains retained. Time Out: A time-out was completed prior to procedure verifying correct patient, procedure, site, positioning, and special equipment if applicable. Procedure Technique/Description of Procedure: The patient was prepped and draped in the usual sterile fashion. An arterial line was attempted percutaneously and via the Seldinger technique into the right axillary artery. There was difficulty with threading the wire despite access to artery. Attempted twice, but procedure was aborted in order to not delay tPA infusion therapy. Post Procedure Diagnosis and Findings: Same as Indications and/or Provisional Diagnosis Complications: unsuccessful as above Vivienne Steiner MD Pulmonary & Critical Care
--- NOTE | 2021-04-21 20:14 | NUR.NOTE ---
Guardian and SO at bedside, MD Parisi in to discuss plan of care. Per SO and guardian decision made to switch to comfort measures. [place] offered and accepted. Awaiting arrival of Isabella. Continuing to monitor. Nursing Note:
--- NOTE | 2021-04-21 21:10 | NUR.NOTE ---
Nursing Note: Time of 2031, confirmed by US by Dr. Parsii after full assessment by nursing. , guardian at bedside with Loading Machine Adjustertu Méndez.
--- NOTE | 2021-04-21 21:41 | NUR.NOTE ---
Nursing Note: Spoke with organ bank, Chika, who declines pt for donation. Not an ME case per REY/manager process Robi at [facility] r/t underlying medical and health problems. Per Guardian Jose Cotton and , [facility] called for cremation services. Pt does not have any belongings in room or transported to ED per , Guardian, this nurse and Jessica Méndez. Plan for [facility] to [place] [facility] [place] at approx [phone]. Production Wood Craftsman Wendy is aware. Primary nurse aware of plan and has paperwork for supervisor type disk quality control and [facility].
== END 2021-04-21 22:36 | disposition expired ==
PROVIDERS: Emergency Medicine; Emergency Provider Physician Assistant; PCP Family Medicine
DX: I63.311 Cerebral infarction due to thrombosis of right middle cerebral artery (principal); R40.20 Unspecified coma; I26.09 Other pulmonary embolism with acute cor pulmonale; R09.2 Respiratory arrest; R79.1 Abnormal coagulation profile; R79.89 Other specified abnormal findings of blood chemistry; Z20.822 Contact with and (suspected) exposure to COVID-19; Z03.818 Encounter for observation for suspected exposure to other biological agents ruled out
CPT/HCPCS: 31500; 36415; 36416; 36556; 51702; 71045; 71275; 80053; 82805; 82962; 87635; 93005; 96365; 96366; 96367; 96368; 96375; 96376; 99291; 99292; 70450; 80320; 81003; 82140; 83605; 83735; 84443; 84484; 85025; 85379; 85730; 93010; 94002; J0171; J1265; J2250; J2930; J2997; J3010; J3490